=== PATIENT | male | born 1945 | race Caucasian/White ===

== ENCOUNTER → 2017-10-25 09:14 | Outpatient (CLI) | payer MEDICARE, BC, SELFPAY ==
--- NOTE | 2017-10-25 09:27 | RAD_ITS ---
STUDY: X-RAY - RIGHT KNEE REASON FOR EXAM: Male, 72 years old. 3 month follow up for unicompartmental knee replacement. TECHNIQUE: 3 view(s) of the knee. COMPARISON: None. FINDINGS: The patient is status post medial hemiarthroplasty. There is good alignment. Small joint effusion. RAD/Knee 1 or 2 Views IMPRESSION: Status post right medial hemiarthroplasty. There is good alignment. Small joint effusion. Electronically Signed: Juan Martinez MD at 15:46 EST Tel [phone], Service support ,
== END ==
DX: Z96.651 Presence of right artificial knee joint (principal)
CPT/HCPCS: 73560

== ENCOUNTER → 2018-04-23 08:54 | Outpatient (CLI) | payer MEDICARE, BC, SELFPAY ==
--- NOTE | 2018-04-23 09:02 | RAD_ITS ---
STUDY: X-RAY - LEFT KNEE REASON FOR EXAM: Male, 73 years old. Postop. Three-month follow-up. TECHNIQUE: 3 view(s) of the knee. COMPARISON: None. FINDINGS: There is a left medial hemiarthroplasty. The prosthetic components are intact and articulate normally with each other. There is no fracture or loosening from the underlying bone. There are mild degenerative changes of the lateral femoral patellar joint space. There are mild degenerative changes of the patellofemoral joint space. There is no joint effusion or soft tissue mass. RAD/Knee 3 Views IMPRESSION: Medial hemiarthroplasty of the left knee without acute abnormality.. Electronically Signed: Julio Cesar Carey DO at 17:16 EDT Tel [phone], Service support ,
== END ==
DX: Z47.1 Aftercare following joint replacement surgery (principal); Z96.659 Presence of unspecified artificial knee joint
CPT/HCPCS: 73562

== ENCOUNTER → 2019-09-24 10:15 | Outpatient (CLI) | payer MEDICARE, BC, SELFPAY ==
--- NOTE | 2019-09-24 10:23 | MRI_ITS ---
STUDY: MRI BRAIN WITH AND WITHOUT CONTRAST REASON FOR EXAM: Male, 74 years old. hyperprolactinemia, low testosterone TECHNIQUE: Standardized multiplanar fat and water weighted pulse sequences were obtained. Dotarem IV 24ml was administered for the contrast portion of the examination. COMPARISON: None. FINDINGS: Large susceptibility artifact is present across the anterior and superior aspect of the skull/frontal regions. A small portion of the frontal lobes is obscured by this dark signal on the diffusion-weighted sequence. There is no evidence for recent intracranial ischemia or other cause of cytotoxic edema on the remaining aspects of the diffusion weighted imaging (DWI). There is mild cerebral atrophy with widening of the extra-axial spaces and ventricular dilatation. There are multiple white matter hyperintensities, distributed throughout the deep white matter tracts of the cerebral hemispheres, consistent with moderate chronic white matter ischemic changes. Normal bilateral basal ganglia. Normal thalami. There is no extra-axial fluid accumulation. Normal flow voids within the major intracranial circulation suggesting patency by spin echo criteria. Normal venous enhancement. There is no enhancing intra-axial or extra-axial abnormality. No visualized enhancing mass or nodule. Normal sella turcica, pituitary gland, infundibular stalk, optic chiasm and hypothalamus. Normal tectal plate and pineal gland. Normal midbrain, pavel and medulla. Normal cerebellum. Normal basal cisterns. Normal bilateral temporal bones. Normal bilateral internal auditory canals. No demonstrated orbital abnormality, within the constraints of a routine brain study. Normal visualized paranasal sinuses. Normal calvarium and skull base. Normal visualized soft tissue structures. Normal visualized upper cervical spine. MRI/Brain W/WO Contrast IMPRESSION: 1. Chronic ischemic changes of the brain, as described above. 2. No demonstrated pituitary nodule or signal abnormality. Electronically Signed: Osmel Diez MD at 17:21 EST , Service support ,
== END ==
DX: E22.1 Hyperprolactinemia (principal)
CPT/HCPCS: 70553; A9575

== ENCOUNTER → 2020-02-24 11:34 | Outpatient (CLI) | payer MEDICARE, BC, SELFPAY ==
--- NOTE | 2020-02-24 11:47 | RAD_ITS ---
STUDY: X-RAY - LEFT KNEE REASON FOR EXAM: Male, 74 years old. follow up knee arthroplasty, flexion and extension views requested on the order TECHNIQUE: 4 view(s) of the knee. COMPARISON: None. FINDINGS: There is unicompartmental prosthetic within the medial compartment of the femoral-tibial joint. There is spurring of the upper pole of the patella RAD/Knee 4 or More Views IMPRESSION: Unicameral prosthesis within the medial compartment of the joint and degenerative change. No acute fracture Electronically Signed: Micah Dumont MD at 21:48 EDT , Service support ,
--- NOTE | 2020-02-24 11:50 | RAD_ITS ---
STUDY: X-RAY - RIGHT KNEE REASON FOR EXAM: Male, 74 years old. follow up knee arthroplasty, flexion and extension views requested on the order TECHNIQUE: 4 view(s) of the knee. COMPARISON: None. FINDINGS: Unicompartmental prosthesis noted in the medial aspect of the knee. No evidence for fracture or dislocation.. Spurring of the lateral tibial and femoral condyles. RAD/Knee 4 or More Views IMPRESSION: Unicompartmental prosthetic placement with mild degenerative change. No acute fracture Electronically Signed: Micah Dumont MD at 21:45 EDT , Service support ,
== END ==
DX: Z96.653 Presence of artificial knee joint, bilateral (principal)
CPT/HCPCS: 73564

== ENCOUNTER → 2022-05-09 | Outpatient (CLI) | payer MEDICARE, BC, SELFPAY ==
--- NOTE | 2022-05-09 07:47 | ECHOCS_ITS ---
Reason For Study: Murmur Procedure This was a 2D Doppler, Color Flow transthoracic echocardiogram. The study was technically difficult. Contrast injection was performed. Exam performed in department. Left Ventricle Normal LV size. Moderate eccentric left ventricular hypertrophy. Left ventricular systolic function is normal. The estimated ejection fraction is 65 %. Stage 1 diastolic dysfunction. No regional wall motion abnormalities noted. Right Ventricle Normal RV size. Normal systolic function. Atria Normal left atrium. Normal right atrium. Mitral Valve Normal mitral valve. Tricuspid Valve Normal tricuspid valve. Mild (1+) tricuspid valve insufficiency. Pulmonary artery systolic pressure is 26 mmHg. Aortic Valve Normal aortic valve. Pulmonic Valve Normal pulmonic valve. Great Vessels Normal aortic root. The pulmonary artery is normal size. Normal inferior vena cava. Pericardium/Pleural No pericardial effusion. Medication 22 gauge I.V. with prn adaptor inserted into right arm. Diluted definity 2.5ml given slow IV push to enhance endocardial definition. MMode/2D Measurements & Calculations LVIDd: 5.0 cm IVSd: 1.4 cm Ao root diam: 3.8 cm LVIDs: 2.9 cm LVPWd: 1.2 cm LA dimension: 4.5 cm RVDd: 3.8 cm FS: 42.5 % LAV(MOD-bp): 64.3 ml LA A4 area: 18.6 cm2 RA A4 area: 14.2 cm2 LAV(MOD-bp) Indexed: 27.5 ml/m2 LAV(MOD-sp2): 69.5 ml LAV(MOD-sp4): 52.8 ml Time Measurements MV dec time: 0.27 sec Doppler Measurements & Calculations MV E max jose: 79.2 cm/sec Lat Peak E' Jose: 8.3 cm/sec Med Peak E' Jose: 8.1 cm/sec MV A max jose: 110.5 cm/sec E/E' lat: 9.6 E/E' med: 9.7 MV E/A: 0.72 MV V2 max: 111.2 cm/sec MV P1/2t max jose: 86.7 cm/sec Ao V2 max: 157.7 cm/sec MV max P.9 mmHg MV P1/2t: 84.4 msec Ao max P.0 mmHg MV V2 mean: 54.0 cm/sec MV dec slope: 300.8 cm/sec2 MV mean P.4 mmHg MV V2 VTI: 27.0 cm MVA(P1/2t): 2.6 cm2 LV V1 max: 102.9 cm/sec PA V2 max: 102.5 cm/sec TR max jose: 242.9 cm/sec LV V1 max P.2 mmHg TR max P.6 mmHg ECHO/Echo Complete W/ Contrast Interpretation Summary Normal LV size. Left ventricular systolic function is normal. The estimated ejection fraction is 65 %. Stage 1 diastolic dysfunction. Moderate eccentric left ventricular hypertrophy. Contrast injection was performed. Ordering Physician: VIC MAY Performed By: Gregg Sesay RCS
== END | disposition home or self-care (01) ==
DX: R01.1 Cardiac murmur, unspecified (principal)
CPT/HCPCS: 93306; Q9957; A4216; C8929

== ENCOUNTER → 2022-10-17 | Outpatient (CLI) | payer MEDICARE, BC, SELFPAY ==
--- NOTE | 2022-10-17 11:44 | RAD_ITS ---
EXAM: XR LEFT KNEE COMPLETE, 4 OR MORE VIEWS CLINICAL INDICATION: FOLLOW UP TOTAL KNEE ARTHROPLASTY TECHNIQUE: Four or more views of the left knee. This report was created using [employer] report generation technology. COMPARISON: 02/24/2020. FINDINGS: BONES/JOINTS: Metallic prosthesis in the medial femorotibial compartment remains intact and in good anatomic alignment. Minimal bone spur in the posterior inferior surface of the patella is unchanged. Minimal calcific enthesopathy overlying the anterior superior surface of the patella is unchanged. No acute fracture. Preservation of the joint space. No sclerotic or destructive changes observed. SOFT TISSUES: Unremarkable. No soft tissue swelling or gas. No radiopaque foreign body. RAD/Knee 4 or More Views IMPRESSION: No acute findings in the left knee and no change including the metallic arthroplasty in the medial femorotibial compartment when compared to 02/24/2020.. Electronically Signed: Augie Willett MD at 13:22 EST ,
--- NOTE | 2022-10-17 11:45 | RAD_ITS ---
EXAM: XR RIGHT KNEE COMPLETE, 4 OR MORE VIEWS CLINICAL INDICATION: FOLLOW UP TOTAL KNEE ARTHROPLASTY TECHNIQUE: Four or more views of the right knee. This report was created using [employer] report generation technology. COMPARISON: 02/24/2020. FINDINGS: BONES/JOINTS: Metallic arthroplasty in the medial femorotibial compartment remains normal and in good anatomic alignment. Minimal bone spurs in the lateral femoral condyle and in the lateral proximal tibial condyle are unchanged. Minimal bone spurs in the posterior superior and posterior inferior surface of the patella are unchanged. No acute fracture. No sclerotic or destructive changes observed. SOFT TISSUES: Unremarkable. No soft tissue swelling or gas. No radiopaque foreign body. RAD/Knee 4 or More Views IMPRESSION: No acute findings in the right knee and no interval change including the metallic arthroplasty in the medial femoral tibial compartment when compared to 02/24/2020. Electronically Signed: Augie Willett MD at 13:24 EST ,
== END | disposition home or self-care (01) ==
DX: M76.899 Other specified enthesopathies of unspecified lower limb, excluding foot (principal); Z96.653 Presence of artificial knee joint, bilateral
CPT/HCPCS: 73564

== ENCOUNTER → 2025-08-09 | Outpatient (CLI) | payer MEDICARE, BC, SELFPAY ==
--- NOTE | 2025-08-09 09:29 | RAD_ITS ---
PROCEDURE: CHEST PA AND LATERAL 08/09/2025 REASON FOR EXAM: CHRONIC COUGH TECHNIQUE: Procedure Code: RADCXR Modality: DX Procedure: CHEST PA AND LATERAL. 2 PA views of the chest were obtained as well as a lateral view. COMPARISON: None FINDINGS: Hardware: None Heart: Heart size and configuration are within normal limits. Arteriosclerotic vascular disease of the aorta is noted. Mediastinum: Mediastinal silhouette is unremarkable. Pulmonary vasculature: Pulmonary vasculature is unremarkable. Lungs: Lungs are expanded without evidence of pneumothorax, atelectasis, consolidation, effusion or pneumonic infiltrate. There is elevation of the right hemidiaphragm which may be due to phrenic nerve paralysis or eventration. Bones: No acute osseous abnormality is noted. Spondylosis of the thoracic spine is noted. RAD/Chest PA and Lateral IMPRESSION: Arteriosclerotic vascular disease of the aorta. Elevation of the right hemidiaphragm which may be due to eventration or phrenic nerve paralysis. Reading Location: [id number]
--- OUTSIDE RECORDS SUMMARY | 2025-08-09 10:14 | XMS RPT_ITS | CCD ---
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 Brody Barcenas Attending Provider Brody Barcenas Attending Unavailable EANERDILLON Attending Unavailable BEARER, DILLON Primary Care Unavailable DILLON DIAZ Attending Unavailable , DILLON Primary Care Unavailable KALIA HERRING, GENE Hunter Primary Care Physician Unavailab Langston PT, Jewell Unavailable Massimo THOMAS MD, GENE Hunter Primary Care Unavailable ANDIE MYERS MD Referring Unavailable ANDIE MYERS MD Attending Modesta Chan MD Primary Care Provider [phone] MODESTA ROMANO Referring Unavailable MODESTA ROMANO Attending Unavailable MODESTA ROMANO Primary Care Unavailable Gene Thomas Primary Care Provider [phone] KAMRYN HERRING, DR MODESTA Fonseca Primary Care Physician Adam Rounding Nurse, Dontrell Unavailable VIC Elise DO Attending Massimo ROMANO MD, DR MODESTA Fonseca Primary Care Anne ROMANO MD, DR MODESTA Fonseca Primary Care UnavailISSAC Ortiz MD Attending Massimo ROMANO MD, DR MODESTA Fonseca Primary Care Unavailzoran MILLER MD, SPIKE Admitting Massimo SANCHEZ MD, DR SHERMAN Consulting CHRISTINA Baez MD Attending JIN Sommers DO Consulting Rabia ROMANO MD, DR MODESTA Fonseca Primary Care UnavailMYRNA Mcdonald Attending Rabiav minnie SANCHEZ MD, DR SHERMAN Attending Anne ROMANO MD, DR MODESTA Fonseca Primary Care Unavailzoran ROMANO MD, DR MODESTA Fonseca Primary Care Unavailzoran HOUGH, MYRNA Stephenson Attending Unav ailable Allergies Allergy Classification Reported Allergen(s) Allergy Type Date of Onset Reaction(s) Facility (3 sources) colesevelam Drug Allergy 09-12-2010 Unknown [facility] (3 sources) rosuvastatin Drug Allergy 09-12-2010 Unknown [facility] Medications Current Medications Medication Drug Class(es) Dates Sig (Normalized) Sig (Original) amLODIPine 2.5 mg oral tablet (5 sources) Dihydropyridine Calcium Channel Bryan Start: 06-04-2025 amLODIPine 2.5 mg oral tablet Dose : 2.5 mg = 1 tab(s), Oral, qDay, # 30 tab(s), 0 Refill(s) Start Date: 06/04/25 Status: Ordered Medication Dispense Status: Completed Quantity: 30.0 Unit: tab(s) Total Allowed Fills: 1 Fills Dispensed: 0 Start: 01-22-2024 take 1 tablet by sebastián th once daily amLODIPine (Norvasc) 2.5 MG tablet Take 2.5 mg by mouth daily. 0 01/22/2024 Active apixaban 5 mg oral tablet (2 sources) Factor Xa Inhibitor Start: 01-16-2024 take 1 tablet by mouth twice daily Eliquis 5 MG tablet Take 5 mg by mouth 2 times daily. 0 01/16/2024 Active cholecalciferol 0.01 mg oral capsule (2 sources) Vitamin D take 1 capsule by mouth in the morning cholecalciferol (Vitamin D-3) 10 MCG (400 UNIT) capsule Take 400 Units by mouth in the morning. 0 Active DME MISCellaneous (1 source) Start: 06-07-2025 DME MISCellaneous See Instructions, three way catheter secure., # 1 EA, 0 Refill(s), Pharmacy: [facility], 177.8, cm, 06/04/25 1:39:00 EDT, Height, 113.6, kg, 06/04/25 1:39:00 EDT, Dosing Weight Start Date: 06/07/25 Status: Ordered Medication Dispense Status: Completed Quantity: 1.0 Unit: EA Total Allowed Fills: 1 Fills Dispensed: 0 finasteride 5 mg oral tablet (3 sources) 5-alpha Reductase Inhibitor Start: 06-04-2025 End: 07-04-2025 finasteride 5 mg oral tablet Dose : 5 mg = 1 tab(s), Oral, qDay, # 90 tab(s), 3 Refill(s), Pharmacy: [id number], BPH (benign prostatic hyperplasia), 177.8, cm, 06/04/25 1:39:00 EDT, Height, kg, 06/04/25 1:39:00 EDT, Dosing Weight Start Date: 06/11/25 Status: Ordered Medication Dispense Status: Completed Quantity: 90.0 Unit: tab(s) Total Allowed Fills: 4 Fills Dispensed: 0 Indications: Benign prostatic hyperplasia without lower urinary tract symptoms; levothyroxine sodium 0.15 mg oral tablet (5 sources) l-Thyroxine Start: 06-04-2025 levothyroxine 150 mcg (0.15 mg) oral tablet Dose : 150 mcg = 1 tab(s), Oral, qDayAC, # 90 tab(s), 0 Refill(s) Start Date: 06/04/25 Status: Ordered Medication Dispense Status: Completed Quantity: 90.0 Unit: tab(s) Total Allowed Fills: 1 Fills Dispensed: 0 Start: 01-21-2024 levothyroxine (Synthroid, Levoxyl) 175 MCG tablet TAKE 1 TABLET BY MOUTH ONCE DAILY EXCEPT TAKE 1 & 1/2 TABLETS EVERY 5 DAYS 0 01/21/2024 Active lisinopril 30 mg oral tablet (5 sources) Angiotensin Converting Enzyme Inhibitor Start: 06-04-2025 lisinopril 30 mg ora l tablet Dose : 30 mg = 1 tab(s), Oral, Daily, # 100 tab(s), 0 Refill(s) Start Date: 06/04/25 Status: Ordered Medication Dispense Status: Completed Quantity: 100.0 Unit: tab(s) Total Allowed Fills: 1 Fills Dispensed: 0 Start: 12-01-2023 take 1 tablet by sebastián once daily lisinopril 30 MG tablet Take 30 mg by mouth daily. 0 12/01/2023 Active metFORMIN hydrochloride 500 mg oral tablet (5 sources) Biguanide Start: 06-04-2025 MetFORMIN (Eqv -Fortamet) 500 mg oral tablet, EXTENDED RELEASE Dose : 500 mg = 1 tab(s), Oral, 4x/Day, Okay to substitute for generic Glucophage XR, # 100 tab(s), 0 Refill(s) Start Date: 06/04/25 Status: Ordered Medication Dispense Status: Completed Quantity: 100.0 Unit: tab(s) Total Allowed Fills: 1 Fills Dispensed: 0 Start: 11-29-2023 take 1 tablet by sebastián th twice daily metFORMIN (Glucophage) 500 MG tablet Take 500 mg by mouth 2 times daily. 0 11/29/2023 Active metoprolol tartrate 25 mg oral tablet (5 sources) beta-Adrenergic Bryan Start: 06-04-2025 metopr olol tartrate 25 mg oral tablet Dose : 12.5 mg = 0.5 tab(s), Oral, qDay, # 30 tab(s), 0 Refill(s) Start Date: 06/04/25 Status: Ordered Medication Dispense Status: Completed Quantity: 30.0 Unit: tab(s) Total Allowed Fills: 1 Fills Dispensed: 0 take 1 tablet by mouth once akash y metoprolol succinate XL (Toprol-XL) 50 MG 24 hr tablet Take 50 mg by mouth daily. 0 Active omeprazole 20 mg delayed release oral capsule (2 sources) Proton Pump Inhibitor Start: 01-11-2024 take 1 capsule by mouth once daily omeprazole (PriLOSEC) [address] capsule TAKE 1 CAPSULE BY MOUTH ONCE DAILY DIRECTED 0 01/11/2024 Active pravastatin sodium 20 mg oral tablet (5 sources) HMG-CoA Reductase Inhibitor Start: 06-04-2025 take 1 tablet by mouth every other day pravastatin 20 mg oral tablet Dose : 20 mg =, Oral, Every other day, 0 Refill(s) Start Date: 06/04/25 Status: Ordered Medication Dispense Status: Completed Total Allowed Fills: 1 Fills Dispensed: 0 Start: 12-16-2023 pravastatin (P ravachol) 20 MG tablet Take 20 mg by mouth. 0 12/16/2023 Active tamsulosin hydrochloride 0.4 mg oral capsule (3 sources) alpha-Adrenergic Bryan Start: 06-04-2025 End: 07-04-2025 Flomax 0.4 mg oral capsule Dose : 0.4 mg = 1 cap(s), Oral, qDayPC, # 90 cap(s), 3 Refill(s), Pharmacy: [id number], BPH (benign prostatic hyperplasia), 177.8, cm, 06/04/25 1:39:00 EDT, Height, kg, 06/04/25 1:39:00 EDT, Dosing Weight Start Date: 06/11/25 Status: Ordered Medication Dispense Status: Completed Quantity: 90.0 Unit: cap(s) Total Allowed Fills: 4 Fills Dispensed: 0 Indications: Benign prostatic hyperplasia without lower urinary tract symptoms; Completed/Discontinued Medications Medication Drug Class(es) Dates Sig (Normalized) Sig (Original) perflutren protein A microsphere (Optison) 3 mL in sodium chloride (PF) 0.9 % 10 mL IV syringe (2 sources) Start: 01-29-2024 End: 01-29-2024 perflutren protein A microsphere (Optison) 3 mL in sodium chloride (PF) 0.9 % 10 mL IV syringe Problems Active Problems Problem Classification Problem Date Documented Date Episodic/Chronic Cardiac dysrhythmias (5 sources) Atrial fibrillation; Translations: [Unspecified atrial fibrillation] Onset: 01-29-2024 01-29-2024 Chronic Complication of device; implant or graft (2 sources) Other mechanical complication of indwelling urethral catheter, initial encounter; Translations: [Other mechanical complication of indwelling urethral catheter, initial encounter] Onset: 06-03-2025 Episodic Genitourinary symptoms and ill-defined conditions (6 sources) Retention of urine; Translations: [Retention of urine, unspecified] Onset: 06-02-2025 Episodic Other acquired deformities (1 source) Contracture of ankle joint; Translations: [Contracture, 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 Other connective tissue disease (1 source) Other specified enthesopathies of unspecified lower limb, excluding foot; Translations: [Other specified enthesopathies of unspecified lower limb, excluding foot] Onset: 12-17-2022 Episodic Other lower respiratory disease (4 sources) Dyspnea; Translations: [Other forms of dyspnea] Onset: 01-29-2024 01-29-2024 Episodic Other lower respiratory disease (1 source) Other forms of dyspnea; Translations: [Other forms of dyspnea] Onset: 01-29-2024 Episodic Past or Other Problems Problem Classification Problem Date Documented Da te Episodic/Chronic Heart valve disorders (1 source) Cardiac murmur, unspecified; Translations: [Cardiac murmur, unspecified] Onset: 08-23-2022 Episodic Results Test Name Value Interpretation Reference Range Facility [facility] 08-03-2025 Prostate Specific Antigen 0.99 ng/mL Normal 0.02-4.00 [facility] Comment on above: Result Comment: Leidy ent results determined by assays using different manufacturers for methods may not be comparable. Performed By: #### P SA #### [facility] [address] [place] [address] BASIC METABOLIC PANELon BUN/CREATININE RATIO SEE NOTE: Normal 6-22 [facility] Comment on above: Order Comment: 0; 0; 0; 0; 0 Result Comment: Not Reported: BUN and Creatinine are within reference range. Performed By: #### 3 4429, 866, 899, 20738, 496 #### [facility] [place] [address] Engineer Automated Equipment: Elvis Nava MD Calcium [Mass/Vol] 9.0 mg/dL Normal 8.6-10.3 [facility] Comment on above: Order Comment: 0; 0; 0; 0; 0 Performed By: #### 3 4429, 866, 899, 13804, 496 #### [facility] [place] [address] [employer] Automated Equipment: Elvis Nava MD Chloride [Moles/Vol] 103 mmol/L Normal 98-110 [facility] [place] t [facility] Comment on above: Order Comment: 0; 0; 0; 0; 0 Performed By: #### 3 4429, 866, 899, 90231, 496 #### [facility] [place] [address] [employer] Automated Equipment: Elvis Nava MD CO2 [Moles/Vol] 27 mmol/L Normal 20-32 [facility] Comment on above: Order Comment: 0; 0; 0; 0; 0 Performed By: #### 3 4429, 866, 899, 02106, 496 #### [facility] [place] [address] [employer] Automated Equipment: Elvis Nava MD Creatinine [Mass/Vol] 0.78 mg/dL Normal 0.70-1.28 [facility] Comment on above: Order Comment: 0; 0; 0; 0; 0 Performed By: #### 3 4429, 866, 899, 37616, 496 #### [facility] [place] [address] Engineer Automated Equipment: Elvis Nava MD GFR/1.73 sq M.predicted among non-blacks MDRD (S/P/Bld) [Vol rate/Area] 91 mL/min/{1.73_m2} Normal > OR = 60 [facility] Comment on above: Order Comment: 0; 0; 0; 0; 0 Performed By: #### 3 4429, 866, 899, 92528, 496 #### [facility] [place] [address] [employer] Automated Equipment: Elvis Nava MD Glucose [Mass/Vol] 207 mg/dL High 65-99 [facility] Comment on above: Order Comment: 0; 0; 0; 0; 0 Result Comment: Fasting reference interval For someone without known diabetes, a glucose value >125 mg/dL indicates that they may have diabetes and this should be confirmed with a follow-up test. Performed By: #### 3 4429, 866, 899, 96611, 496 #### [facility] [place] [address] [employer]ated Equipment: Elvis Nava MD Potassium [Moles/Vol] 4.7 mmol/L Normal 3.5-5.3 [facility] Comment on above: Order Comment: 0; 0; 0; 0; 0 Performed By: #### 3 4429, 866, 899, 66226, 496 #### [facility] [place] [address] [employer] Automated Equipment: Elvis Nava MD Sodium [Moles/Vol] 139 mmol/L Normal 135-146 [facility] Comment on above: Order Comment: 0; 0; 0; 0; 0 Performed By: #### 3 4429, 866, 899, 36583, 496 #### [facility] [place] [address] Engineer Automated Equipment: lEvis Nava MD Urea nitrogen [Mass/Vol] 17 mg/dL Normal 7-25 [facility] Comment on above: Order Comment: 0; 0; 0; 0; 0 Performed By: #### 3 4429, 866, 899, 06843, 496 #### [facility] [address], [address] [place] [address] Engineer Automated Equipment: Elvis Nava MD HEMOGLOBIN A1con 07-30-2025 HbA1c (Bld) [Mass fraction] 7.7 % High <5.7 [facility] Comment on above: Result Comment: For someone without known diabetes, a hemoglobin A1c value of 6.5% or greater indicates that they may have diabetes and this should be confirmed with a follow-up test. For someone with known diabetes, a value <7% indicates that their diabetes is well controlled and a value greater than or equal to 7% indicates suboptimal control. A1c targets should be individualized based on duration of diabetes, age, comorbid conditions, and other considerations. Currently, no consensus exists regarding use of hemoglobin A1c for diagnosis of diabetes for children. Performed By: #### 3 4429, 866, 899, 95365, 496 #### [facility] [place] [address] [employer] Automated Equipment: Elvis Nava MD T3, FREEon 07-30-2025 Free T3 [Mass/Vol] 2.9 pg/mL Normal 2.3-4.2 [facility] Comment on above: Performed By: #### 3 4429, 866, 899, 15036, 496 #### [facility] [address], [address] [place] [address] Engineer Automated Equipment: Elvis Nava MD T4, FREEon 07-30-2025 Free T4 [Mass/Vol] 1.3 ng/dL Normal 0.8-1.8 [facility] Comment on above: Performed By: #### 3 4429, 866, 899, 24971, 496 #### [facility] [place] [id number] Engineer Automated Equipment: Elvis Nava MD TSHon 07-30-2025 TSH Qn 0.90 m[IU]/L Normal 0.40-4.50 [facility] Comment on above: Performed By: #### 3 4429, 866, 899, 49796, 496 #### [facility] [address], [address] [place] [address] Engineer Automated Equipment: Elvis Nava MD .Auto Diffon 06-04-2025 Basophil, Absolute 0.0 10 3/mcL Normal 0.0-0.3 [facility] Comment on above: Performed By: #### G FR, ADIFF, CBC, MG, HFP, LIPID, ANEU, BMP #### [address] [address] Basophils/100 WBC (Bld) 0.6 % Normal 0.0-2.5 [facility] Comment on above: Performed By: #### G FR, ADIFF, CBC, MG, HFP, LIPID, ANEU, BMP #### [address] [address] Eosinophil, Absolute 0.2 10 3/mcL Normal 0.0-0.7 [facility] Comment on above: Performed By: #### G FR, ADIFF, CBC, MG, HFP, LIPID, ANEU, BMP #### [address] [address] Eosinophils/100 WBC (Bld) 2.9 % Normal 0.0-6.0 [facility] Comment on above: Performed By: #### G FR, ADIFF, CBC, MG, HFP, LIPID, ANEU, BMP #### [address] [address] Lymphocyte, Absolute 1.5 10 3/mcL Normal 0.9-4.3 [facility] Comment on above: Performed By: #### G FR, ADIFF, CBC, MG, HFP, LIPID, ANEU, BMP #### [address] [address] Lymphocytes/100 WBC (Bld) 21.8 % Normal 20.0-40.0 [facility] Comment on above: Performed By: #### G FR, ADIFF, CBC, MG, HFP, LIPID, ANEU, BMP #### [place] [address] Monocyte, Absolute 0.8 10 3/mcL Normal 0.1-1.4 [facility] Comment on above: Performed By: #### G FR, ADIFF, CBC, MG, HFP, LIPID, ANEU, BMP #### [place] [id number] Monocytes/100 WBC (Bld) 12.3 % Normal 2.0-13.0 [facility] Comment on above: Performed By: #### G FR, ADIFF, CBC, MG, HFP, LIPID, ANEU, BMP #### [address] [address] Neutrophils/100 WBC (Bld) 62.4 % Normal 50.0-75.0 [facility] Comment on above: Performed By: #### G FR, ADIFF, CBC, MG, HFP, LIPID, ANEU, BMP #### [address] [address] .GFRon 06-04-2025 Estimated Glomerular Filtration Rate 86 ml/min/1.73sqm Normal [facility] Comment on above: Result Comment: Stages of Chronic Kidney Disease (CKD) Stage Description eGFR(ml/min/1.73 sq.m.) CKD 1 Normal kidney function or >=90 normal kindney function with possible kidney damage (ex. Proteinuria) CKD 2 Kidney damage with mild loss 60-89 of kidney function CKD 3a Mild to moderate loss of kidney 45-59 function CKD 3b Moderate to severe loss of 30-44 of kindey function CKD 4 Severe loss of kidney function 15-29 CKD 5 Kidney failure <15 Note: (go live 2024) the eGFR calculation was updated to the 2020 CKD-EPI creatinine equation without a race factor to calculate the eGFR results. Performed By: #### P SA #### [address] [address] .NEUABSon 06-04-2025 Neutrophil, Absolute 4.3 10 3/mcL Normal 2.3-8.1 [facility] Comment on above: Performed By: #### G FR, ADIFF, CBC, MG, HFP, LIPID, ANEU, BMP #### [address] [address] A1Con 06-04-2025 Glucose [Mass/Vol] 180 mg/dL Normal [facility] Comment on above: Result Comment: Suzanne mated Average Glucose calculated by equation ((28.7xA1C)-46.7) Estimated average glucose (eAG) is a calculated value from Hemoglobin A1C and is product representative of the average blood glucose level in the last 2-3 month period. Normal range: less than 114 mg/dL Performed By: #### A 1C #### [place] [id number] HbA1c (Bld) [Mass fraction] 7.9 % High 4.0-6.0 [facility] Comment on above: Performed By: #### A 1C #### [place] [id number] [facility] BUN/Creatinine Ratio 17.6 ratio Normal 10.0-22.0 [facility] Comment on above: Performed By: #### G FR, ADIFF, CBC, MG, HFP, LIPID, ANEU, BMP #### [place] [id number] Calcium [Mass/Vol] 9.3 mg/dL Normal 8.7-10.4 [facility] Comment on above: Performed By: #### G FR, ADIFF, CBC, MG, HFP, LIPID, ANEU, BMP #### [address] [address] Chloride [Moles/Vol] 104 mmol/L Normal 98-110 [facility] Comment on above: Performed By: #### G FR, ADIFF, CBC, MG, HFP, LIPID, ANEU, BMP #### [address] [address] CO2 [Moles/Vol] 27 mmol/L Normal 22-32 [facility] Comment on above: Performed By: #### G FR, ADIFF, CBC, MG, HFP, LIPID, ANEU, BMP #### [address] [address] Creatinine [Mass/Vol] 0.91 mg/dL Normal 0.60-1.40 [facility] Comment on above: Result Comment: Test ing performed on viVood analyzer using enzymatic creatinine methodology. Performed By: #### G FR, ADIFF, CBC, MG, HFP, LIPID, ANEU, BMP #### [place] [address] Electrolyte Balance 9.0 mEq/L Normal 4.0-15.0 [facility] Comment on above: Performed By: #### G FR, ADIFF, CBC, MG, HFP, LIPID, ANEU, BMP #### [place] [address] Glucose [Mass/Vol] 187 mg/dL High 82-115 [facility] Comment on above: Performed By: #### G FR, ADIFF, CBC, MG, HFP, LIPID, ANEU, BMP #### [place] [address] Potassium [Moles/Vol] 4.4 mmol/L Normal 3.5-5.0 [facility] Comment on above: Performed By: #### G FR, ADIFF, CBC, MG, HFP, LIPID, ANEU, BMP #### [place] [address] Sodium [Moles/Vol] 140 mmol/L Normal 136-145 [facility] Comment on above: Performed By: #### G FR, ADIFF, CBC, MG, HFP, LIPID, ANEU, BMP #### [place] [address] Urea nitrogen [Mass/Vol] 16.0 mg/dL Normal 8.0-22.0 [facility] Comment on above: Performed By: #### G FR, ADIFF, CBC, MG, HFP, LIPID, ANEU, BMP #### [place] [address] CBCon 06-04-2025 Erythrocyte distribution width (RBC) [Ratio] 13.0 % Normal 11.5-15.5 [facility] Comment on above: Performed By: #### G FR, ADIFF, CBC, MG, HFP, LIPID, ANEU, BMP #### [place] [address] Hematocrit (Bld) [Volume fraction] 36.6 % Low 40.0-52.0 [facility] Comment on above: Performed By: #### G FR, ADIFF, CBC, MG, HFP, LIPID, ANEU, BMP #### [place] [address] Hgb 12.5 G/dL Low 13.0-17.5 [facility] Comment on above: Performed By: #### G FR, ADIFF, CBC, MG, HFP, LIPID, ANEU, BMP #### [place] [address] MCH (RBC) [Entitic mass] 30.8 pg Normal 27.0-33.0 [facility] Comment on above: Performed By: #### G FR, ADIFF, CBC, MG, HFP, LIPID, ANEU, BMP #### [place] [address] MCHC 34.1 G/dL Normal 32.0-36.0 [facility] Comment on above: Performed By: #### G FR, ADIFF, CBC, MG, HFP, LIPID, ANEU, BMP #### [place] [address] MCV (RBC) [Entitic vol] 90.3 fL Normal 81.0-100.0 [facility] Comment on above: Performed By: #### G FR, ADIFF, CBC, MG, HFP, LIPID, ANEU, BMP #### [place] [address] Platelet 175 10 3/mcL Normal 150-450 [facility] Comment on above: Performed By: #### G FR, ADIFF, CBC, MG, HFP, LIPID, ANEU, BMP #### [place] [address] Platelet mean volume (Bld) [Entitic vol] 8.3 fL Normal 6.4-10.5 [facility] Comment on above: Performed By: #### G FR, ADIFF, CBC, MG, HFP, LIPID, ANEU, BMP #### [address] [address] RBC 4.05 10 6/mcL Low 4.50-6.00 [facility] Comment on above: Performed By: #### G FR, ADIFF, CBC, MG, HFP, LIPID, ANEU, BMP #### [address] [address] WBC 6.8 10 3/mcL Normal 4.5-10.8 [facility] Comment on above: Performed By: #### G FR, ADIFF, CBC, MG, HFP, LIPID, ANEU, BMP #### [place] [address] HFPon 06-04-2025 Bili Indirect 0.4 mg/dL Normal 0.1-10.0 [facility] Comment on above: Performed By: #### G FR, ADIFF, CBC, MG, HFP, LIPID, ANEU, BMP #### [place] [address] Albumin Level 3.5 G/dL Normal 3.2-4.8 [facility] Comment on above: Performed By: #### G FR, ADIFF, CBC, MG, HFP, LIPID, ANEU, BMP #### [place] [address] Albumin/Globulin [Mass ratio] 1.5 {ratio} Normal 0.9-1.6 [facility] Comment on above: Performed By: #### G FR, ADIFF, CBC, MG, HFP, LIPID, ANEU, BMP #### [place] [address] ALP [Catalytic activity/Vol] 49 U/L Normal 38-126 [facility] Comment on above: Performed By: #### G FR, ADIFF, CBC, MG, HFP, LIPID, ANEU, BMP #### [place] [address] ALT [Catalytic activity/Vol] 30 U/L Normal 12-55 [facility] Comment on above: Performed By: #### G FR, ADIFF, CBC, MG, HFP, LIPID, ANEU, BMP #### [address] [address] AST [Catalytic activity/Vol] 30 U/L Normal 8-34 [facility] Comment on above: Performed By: #### G FR, ADIFF, CBC, MG, HFP, LIPID, ANEU, BMP #### [place] [address] Bili Direct 0.2 mg/dL Normal 0.0-0.4 [facility] Comment on above: Result Comment: Use of this assay is not recommended for patients undergoing treatment with eltrombopag due to the potential for falsely elevated results. Performed By: #### G FR, ADIFF, CBC, MG, HFP, LIPID, ANEU, BMP #### [place] [address] Bili Total 0.60 mg/dL Normal 0.20-1.20 [facility] Comment on above: Result Comment: Use of this assay is not recommended for patients undergoing treatment with eltrombopag due to the potential for falsely elevated results. Performed By: #### G FR, ADIFF, CBC, MG, HFP, LIPID, ANEU, BMP #### [place] [address] Globulin 2.4 G/dL Low 2.5-4.2 [facility] Comment on above: Performed By: #### G FR, ADIFF, CBC, MG, HFP, LIPID, ANEU, BMP #### [place] [address] Total Protein 5.9 G/dL Normal 5.7-8.2 [facility] Comment on above: Performed By: #### G FR, ADIFF, CBC, MG, HFP, LIPID, ANEU, BMP #### [place] [address] LABORATORYOrdered By: Jannet Ivory on 06-04-2025 Glucose [Mass/Vol] 191 mg/dL High 82 - 115 mg/dL [facility] LABORATORYOrdered By: Sun Montalvo on 06-04-2025 Glucose [Mass/Vol] 173 mg/dL High 82 - 115 mg/dL [facility] LABORATORYOrdered By: SYSTEM SYSTEM on 06-04-2025 Albumin BCP dye [Mass/Vol] 3.5 G/dL Normal 3.2 - 4.8 G/dL ADM SS Albumin/Globulin [Mass ratio] 1.5 {ratio} Normal 0.9 - 1.6 ratio AH ADM SS ALP [Catalytic activity/Vol] 49 U/L Normal 38 - 126 U/L AH ADM SS ALT No additional P-5'-P [Catalytic activity/Vol] 30 U/L Normal 12 - 55 U/L AH ADM SS AST [Catalytic activity/Vol] 30 U/L Normal 8 - 34 U/L ADM SS Basophils (Bld) [#/Vol] 0.0 103/mcL Normal 0.0 - 0.3 10^3/mcL Workflow SS Basophils/100 WBC (Bld) 0.6 % Normal 0.0 - 2.5 % Workflow SS Bili Indirect 0.4 mg/dL Normal 0.1 - 10.0 mg/dL Chemistry S Bilirubin [Mass/Vol] 0.60 mg/dL Normal 0.20 - 1.20 mg/dL AH ADM SS Comment on above: Interpretive Data: U se of this assay is not recommended for patients undergoing treatment with eltrombopag due to the potential for falsely elevated results. Bilirubin.conjugated [Mass/Vol] 0.2 mg/dL Normal 0.0 - 0.4 mg/dL ADM SS Comment on above: Interpretive Data: U se of this assay is not recommended for patients undergoing treatment with eltrombopag due to the potential for falsely elevated results. Calcium [Mass/Vol] 9.3 mg/dL Normal 8.7 - 10. 4 mg/dL AH ADM SS Chloride [Moles/Vol] 104 mmol/L Normal 98 - 11 0 mEq/L AH ADM SS CO2 [Moles/Vol] 27 mmol/L Normal 22 - 32 mEq/L AH ADM SS Creatinine [Mass/Vol] 0.91 mg/dL Normal 0.60 - 1.40 mg/dL ADM SS Comment on above: Interpretive Data: T esting performed on viVood analyzer using enzymatic creatinine methodology. Electrolyte Balance 9.0 mEq/L Normal 4.0 - 15 .0 mEq/L AH ADM SS Eosinophils (Bld) [#/Vol] 0.2 103/mcL Normal 0.0 - 0.7 10^3/mcL Workflow SS Eosinophils/100 WBC (Bld) 2.9 % Normal 0.0 - 6.0 % Workflow SS Erythrocyte distribution width (RBC) [Ratio] 13.0 % Normal 11.5 - 15.5 % Workflow SS Estimated Glomerular Filtration Rate 86 ml/min/1.73sqm Invalid Interpretation Code Chemistry S Comment on above: Interpretive Data: Stages of Chronic Kidney Disease (CKD) Stage Description eGFR(ml/min/1.73 sq.m.) CKD 1 Normal kidney function or >=90 normal kindney function with possible kidney damage (ex. Proteinuria) CKD 2 Kidney damage with mild loss 60-89 of kidney function CKD 3a Mild to moderate loss of kidney 45-59 function CKD 3b Moderate to severe loss of 30-44 of kindey function CKD 4 Severe loss of kidney function 15-29 CKD 5 Kidney failure <15 Note: (go live 2024) the eGFR calculation was updated to the 2020 CKD-EPI creatinine equation without a race factor to calculate the eGFR results. Globulin 2.4 G/dL Low 2.5 - 4.2 G/dL ADM SS Glucose [Mass/Vol] 180 mg/dL Invalid Interpretation Code Auto Chem SS Comment on above: Interpretive Data: E stimated average glucose (eAG) is a calculated value from Hemoglobin A1C and is product representative of the average blood glucose level in the last 2-3 month period. Normal range: less than 114 mg/dL Glucose [Mass/Vol] 187 mg/dL High 82 - 115 mg/dL ADM SS HbA1c (Bld) [Mass fraction] 7.9 % High 4.0 - 6.0 % Auto Chem SS Hematocrit (Bld) [Volume fraction] 36.6 % Low 40.0 - 52.0 % Workflow SS Hemoglobin (Bld) [Mass/Vol] 12.5 G/dL Low 13.0 - 17.5 G/dL Workflow SS Lymphocytes (Bld) [#/Vol] 1.5 103/mcL Normal 0.9 - 4.3 10^3/mcL Workflow SS Lymphocytes/100 WBC (Bld) 21.8 % Normal 20.0 - 40.0 % Workflow SS Magnesium [Mass/Vol] 1.9 mg/dL Normal 1.6 - 2 .4 mg/dL AH ADM SS MCH (RBC) [Entitic mass] 30.8 pg Normal 27.0 - 33.0 pg AH Workflow SS MCHC 34.1 G/dL Normal 32.0 - 36.0 G/dL AH Workflow SS MCV (RBC) [Entitic vol] 90.3 fL Normal 81.0 - 100.0 fL AH Workflow SS Monocytes (Bld) [#/Vol] 0.8 103/mcL Normal 0.1 - 1.4 10^3/mcL AH Workflow SS Monocytes/100 WBC (Bld) 12.3 % Normal 2.0 - 13.0 % AH Workflow SS Neutrophils (Bld) [#/Vol] 4.3 103/mcL Normal 2.3 - 8.1 10^3/mcL AH Workflow SS Neutrophils/100 WBC (Bld) 62.4 % Normal 50.0 - 75.0 % AH Workflow SS Platelet mean volume (Bld) [Entitic vol] 8.3 fL Normal 6.4 - 10.5 fL AH Workflow SS Platelets (Bld) [#/Vol] 175 103/mcL Normal 150 - 450 10^3/mcL AH Workflow SS Potassium [Moles/Vol] 4.4 mmol/L Normal 3.5 - 5.0 mEq/L AH ADM SS Protein [Mass/Vol] 5.9 G/dL Normal 5.7 - 8.2 G/dL AH ADM SS RBC (Bld) [#/Vol] 4.05 106/mcL Low 4.50 - 6.0 0 10^6/mcL AH Workflow SS Sodium [Moles/Vol] 140 mmol/L Normal 136 - 145 mEq/L ADM SS Urea nitrogen [Mass/Vol] 16.0 mg/dL Normal 8.0 - 22.0 mg/dL AH ADM SS Urea nitrogen/Creatinine [Mass ratio] 17.6 ratio Normal 10.0 - 22.0 ratio AH ADM SS WBC (Bld) [#/Vol] 6.8 103/mcL Normal 4.5 - 10.8 10^3/mcL AH Workflow SS LABORATORYOrdered By: Sandra Alcantara on 06-04-2025 Cholesterol [Mass/Vol] 180 mg/dL Normal 50 - 199 mg/dL AH ADM SS Comment on above: Interpretive Data: C holesterol Reference Interval: Less than 200 Desirable 200-239 Borderline high risk 240 and above High risk Cholesterol in HDL [Mass/Vol] 44 mg/dL Normal 40 - 59 mg/dL ADM SS Cholesterol in LDL [Mass/Vol] 108 mg/dL Normal 0 - 129 mg/dL ADM SS Triglyceride [Mass/Vol] 142 mg/dL Normal 3 - 149 mg/dL ADM SS LIPIDon 06-04-2025 Cholesterol [Mass/Vol] 180 mg/dL Normal 50-199 [facility] Comment on above: Result Comment: Chol esterol Reference Interval: Less than 200 Desirable 200-239 Borderline high risk 240 and above High risk Performed By: #### P SA #### [address] [address] Cholesterol in HDL [Mass/Vol] 44 mg/dL Normal 40-59 [facility] Comment on above: Performed By: #### P SA #### [address] [address] Cholesterol in LDL [Mass/Vol] 108 mg/dL Normal 0-129 [facility] Comment on above: Performed By: #### P SA #### [address] [address] Triglyceride [Mass/Vol] 142 mg/dL Normal 3-149 [facility] Comment on above: Performed By: #### P SA #### [address] [address] MGon 06-04-2025 Magnesium [Mass/Vol] 1.9 mg/dL Normal 1.6-2.4 [facility] Comment on above: Performed By: #### G FR, ADIFF, CBC, MG, HFP, LIPID, ANEU, BMP #### [address] [address] .Auto Diffon 06-03-2025 Basophil, Absolute 0.0 10 3/mcL Normal 0.0-0.3 [facility] Comment on above: Performed By: #### M DW, GFR, CBC, ANEU, ADIFF, BMP #### [facility] [address] [place] [address] Basophils/100 WBC (Bld) 0.4 % Normal 0.0-2.5 [facility] Comment on above: Performed By: #### M DW, GFR, CBC, ANEU, ADIFF, BMP #### [address] [address] Eosinophil, Absolute 0.1 10 3/mcL Normal 0.0-0.7 [facility] Comment on above: Performed By: #### M DW, GFR, CBC, ANEU, ADIFF, BMP #### [address] [address] Eosinophils/100 WBC (Bld) 1.0 % Normal 0.0-6.0 [facility] Comment on above: Performed By: #### M DW, GFR, CBC, ANEU, ADIFF, BMP #### [address] [address] Lymphocyte, Absolute 1.2 10 3/mcL Normal 0.9-4.3 [facility] Comment on above: Performed By: #### M DW, GFR, CBC, ANEU, ADIFF, BMP #### [address] [address] Lymphocytes/100 WBC (Bld) 13.1 % Low 20.0-40.0 [facility] Comment on above: Performed By: #### M DW, GFR, CBC, ANEU, ADIFF, BMP #### [address] [address] Monocyte, Absolute 0.8 10 3/mcL Normal 0.1-1.4 [facility] Comment on above: Performed By: #### M DW, GFR, CBC, ANEU, ADIFF, BMP #### [address] [address] Monocytes/100 WBC (Bld) 8.7 % Normal 2.0-13.0 [facility] Comment on above: Performed By: #### M DW, GFR, CBC, ANEU, ADIFF, BMP #### [address] [address] Neutrophils/100 WBC (Bld) 76.8 % High 50.0-75.0 [facility] Comment on above: Performed By: #### M DW, GFR, CBC, ANEU, ADIFF, BMP #### [address] [address] .GFRon 06-03-2025 Estimated Glomerular Filtration Rate 88 ml/min/1.73sqm Normal [facility] Comment on above: Result Comment: Stages of Chronic Kidney Disease (CKD) Stage Description eGFR(ml/min/1.73 sq.m.) CKD 1 Normal kidney function or >=90 normal kindney function with possible kidney damage (ex. Proteinuria) CKD 2 Kidney damage with mild loss 60-89 of kidney function CKD 3a Mild to moderate loss of kidney 45-59 function CKD 3b Moderate to severe loss of 30-44 of kindey function CKD 4 Severe loss of kidney function 15-29 CKD 5 Kidney failure <15 Note: (go live 2024) the eGFR calculation was updated to the 2020 CKD-EPI creatinine equation without a race factor to calculate the eGFR results. Performed By: #### M DW, GFR, CBC, ANEU, ADIFF, BMP #### [address] [address] .MDWon 06-03-2025 Monocyte Distribution Width 17.80 Normal 0.00-20.00 [facility] Comment on above: Result Comment: For ED adult patients suspected of sepsis, MDW<=20.0 does not rule out sepsis or risk of sepsis Performed By: #### M DW, GFR, CBC, ANEU, ADIFF, BMP #### [address] [address] .NEUABSon 06-03-2025 Neutrophil, Absolute 7.1 10 3/mcL Normal 2.3-8.1 [facility] Comment on above: Performed By: #### M DW, GFR, CBC, ANEU, ADIFF, BMP #### [address] [address] BMPon 06-03-2025 BUN/Creatinine Ratio 28 ratio High 7-27 [facility] Comment on above: Performed By: #### M DW, GFR, CBC, ANEU, ADIFF, BMP #### [address] [address] Calcium [Mass/Vol] 9.0 mg/dL Normal 8.4-10.2 [facility] Comment on above: Performed By: #### M DW, GFR, CBC, ANEU, ADIFF, BMP #### [address] [address] Chloride [Moles/Vol] 102 mmol/L Normal 98-107 [facility] Comment on above: Performed By: #### M DW, GFR, CBC, ANEU, ADIFF, BMP #### [address] [address] CO2 [Moles/Vol] 29 mmol/L Normal 23-31 [facility] Comment on above: Performed By: #### M DW, GFR, CBC, ANEU, ADIFF, BMP #### [address] [address] Creatinine [Mass/Vol] 0.87 mg/dL Normal 0.67-1.17 [facility] Comment on above: Performed By: #### M DW, GFR, CBC, ANEU, ADIFF, BMP #### [address] [address] Electrolyte Balance 6.0 mEq/L Normal 4.0-15.0 [facility] Comment on above: Performed By: #### M DW, GFR, CBC, ANEU, ADIFF, BMP #### [address] [address] Glucose [Mass/Vol] 240 mg/dL High 83-110 [facility] Comment on above: Performed By: #### M DW, GFR, CBC, ANEU, ADIFF, BMP #### [address] [address] Potassium [Moles/Vol] 4.4 mmol/L Normal 3.5-5.1 [facility] Comment on above: Performed By: #### M DW, GFR, CBC, ANEU, ADIFF, BMP #### [address] [address] Sodium [Moles/Vol] 137 mmol/L Normal 136-145 [facility] Comment on above: Performed By: #### M DW, GFR, CBC, ANEU, ADIFF, BMP #### [place] [address] Urea nitrogen [Mass/Vol] 24 mg/dL High 7-18 [facility] Comment on above: Performed By: #### M DW, GFR, CBC, ANEU, ADIFF, BMP #### [place] [id number] CBCon 06-03-2025 Erythrocyte distribution width (RBC) [Ratio] 13.3 % Normal 11.5-15.5 [facility] Comment on above: Performed By: #### M DW, GFR, CBC, ANEU, ADIFF, BMP #### [place] [address] Hematocrit (Bld) [Volume fraction] 39.5 % Low 40.0-52.0 [facility] Comment on above: Performed By: #### M DW, GFR, CBC, ANEU, ADIFF, BMP #### [place] [address] Hgb 13.8 G/dL Normal 13.0-17.5 [facility] Comment on above: Performed By: #### M DW, GFR, CBC, ANEU, ADIFF, BMP #### [place] [id number] MCH (RBC) [Entitic mass] 31.0 pg Normal 27.0-33.0 [facility] Comment on above: Performed By: #### M DW, GFR, CBC, ANEU, ADIFF, BMP #### [place] [address] MCHC 34.8 G/dL Normal 32.0-36.0 [facility] Comment on above: Performed By: #### M DW, GFR, CBC, ANEU, ADIFF, BMP #### [place] [address] MCV (RBC) [Entitic vol] 89.0 fL Normal 81.0-100.0 [facility] Comment on above: Performed By: #### M DW, GFR, CBC, ANEU, ADIFF, BMP #### [address] [address] Platelet 175 10 3/mcL Normal 150-450 [facility] Comment on above: Performed By: #### M DW, GFR, CBC, ANEU, ADIFF, BMP #### [place] [id number] [place], [place] [address] Platelet mean volume (Bld) [Entitic vol] 7.9 fL Normal 6.4-10.5 [facility] Comment on above: Performed By: #### M DW, GFR, CBC, ANEU, ADIFF, BMP #### [address] [address] RBC 4.44 10 6/mcL Low 4.50-6.00 [facility] Comment on above: Performed By: #### M DW, GFR, CBC, ANEU, ADIFF, BMP #### [address] [address] WBC 9.2 10 3/mcL Normal 4.5-10.8 [facility] Comment on above: Performed By: #### M DW, GFR, CBC, ANEU, ADIFF, BMP #### [address] [address] [address] ABD/PELVIS W/ IV CONTRAST ONLYon 06-03-2025 CT ABD/PELVIS W/ IV CONTRAST ONLY ORIGINAL EXAMINATION: CT OF THE ABDOMEN AND PELVIS WITH CONTRAST 06/03/2025 11:37 pm TECHNIQUE: CT of the abdomen and pelvis was performed with the administration of intravenous contrast. Multiplanar reformatted images are provided for review. Automated exposure control, iterative reconstruction, and/or weight based adjustment of the mA/kV was utilized to reduce the radiation dose to as low as reasonably achievable. COMPARISON: None. HISTORY: ORDERING SYSTEM PROVIDED HISTORY: Reason for Exam: Hematuria, gross/macroscopic FINDINGS: Lower Chest: No acute findings. Organs: Liver, gallbladder pancreas, spleen and adrenal glands are unremarkable. Kidneys: Symmetric nephrograms. Mild bilateral perinephric stranding. No mass, nephrolithiasis or hydronephrosis. Ureters are normal in caliber. Pelvis: Walton catheter is present, the tip of which, at the very least, tents the wall of the bladder dome. Suboptimal bladder distension with mild bladder wall thickening and several foci of luminal air. Some adjacent perivesicular stranding is present. Marked prostatomegaly. No pelvic or inguinal lymphadenopathy. GI: Large and small bowel are nondilated. Nonvisualized appendix belia pericecal inflammatory changes are present. Unremarkable stomach. No small bowel obstruction. No free intraperitoneal air. No abdominal lymphadenopathy. 2.1 rim calcified density likely represents a calcified lymph node. Vasculature: Atherosclerosis of the abdominal aorta and its branch vessels without aneurysm.. Soft Tissues: No acute findings. Bones: No acute findings. Multilevel degenerative changes of the spine. IMPRESSION: Mild bladder wall thickening with several foci of luminal air. Correlate with urinalysis to exclude cystitis. Marked prostatomegaly. I have personally reviewed the images of this examination and agree with the resident's findings and interpretation. Interpreted by: Cristian Olivarez Preliminary Report By: Daniel Campbell Electronically signed By Cristian Olivarez Dictated Date: 06/03/2025 11:46:47 PM Prelim Date: 06/03/2025 11:55:00 PM Sign Date: 06/03/2025 11:58:59 PM Ordering Provider: VIC Hernandez [facility] LABORATORYOrdered By: SYSTEM SYSTEM on 06-03-2025 Basophils (Bld) [#/Vol] 0.0 103/mcL Normal 0.0 - 0.3 10^3/mcL AO Workflow SS Basophils/100 WBC (Bld) 0.4 % Normal 0.0 - 2.5 % AO Workflow SS Calcium [Mass/Vol] 9.0 mg/dL Normal 8.4 - 10. 2 mg/dL AO ADM SS Chloride [Moles/Vol] 102 mmol/L Normal 98 - 10 7 mmol/L AO ADM SS CO2 [Moles/Vol] 29 mmol/L Normal 23 - 31 mmol/L AO ADM SS Creatinine [Mass/Vol] 0.87 mg/dL Normal 0.67 - 1.17 mg/dL AO ADM SS Electrolyte Balance 6.0 mEq/L Normal 4.0 - 15 .0 mEq/L AO ADM SS Eosinophil, Absolute 0.1 103/mcL Normal 0.0 - 0 .7 10^3/mcL AO Workflow SS Eosinophils/100 WBC (Bld) 1.0 % Normal 0.0 - 6.0 % AO Workflow SS Erythrocyte distribution width (RBC) [Ratio] 13.3 % Normal 11.5 - 15.5 % AO Workflow SS Estimated Glomerular Filtration Rate 88 ml/min/1.73sqm Invalid Interpretation Code AO Chemistry S Comment on above: Interpretive Data: Stages of Chronic Kidney Disease (CKD) Stage Description eGFR(ml/min/1.73 sq.m.) CKD 1 Normal kidney function or >=90 normal kindney function with possible kidney damage (ex. Proteinuria) CKD 2 Kidney damage with mild loss 60-89 of kidney function CKD 3a Mild to moderate loss of kidney 45-59 function CKD 3b Moderate to severe loss of 30-44 of kindey function CKD 4 Severe loss of kidney function 15-29 CKD 5 Kidney failure <15 Note: (go live 2024) the eGFR calculation was updated to the 2020 CKD-EPI creatinine equation without a race factor to calculate the eGFR results. Glucose [Mass/Vol] 240 mg/dL High 83 - 110 mg/dL AO ADM SS Hematocrit (Bld) [Volume fraction] 39.5 % Low 40.0 - 52.0 % AO Workflow SS Hemoglobin (Bld) [Mass/Vol] 13.8 G/dL Normal 13.0 - 17.5 G/dL AO Workflow SS Lymphocytes (Bld) [#/Vol] 1.2 103/mcL Normal 0.9 - 4.3 10^3/mcL AO Workflow SS Lymphocytes/100 WBC (Bld) 13.1 % Low 20.0 - 40.0 % AO Workflow SS MCH (RBC) [Entitic mass] 31.0 pg Normal 27.0 - 33.0 pg AO Workflow SS MCHC 34.8 G/dL Normal 32.0 - 36.0 G/dL AO Workflow SS MCV (RBC) [Entitic vol] 89.0 fL Normal 81.0 - 100.0 fL AO Workflow SS Monocyte distribution width Auto (Bld) [Entitic vol] 17.80 1 Normal 0.00 - 20.00 AO Workflow SS Comment on above: Result Comment: For ED adult patients suspected of sepsis, MDW<=20.0 does not rule out sepsis or risk of sepsis Monocytes (Bld) [#/Vol] 0.8 103/mcL Normal 0.1 - 1.4 10^3/mcL AO Workflow SS Monocytes/100 WBC (Bld) 8.7 % Normal 2.0 - 13.0 % AO Workflow SS Neutrophils (Bld) [#/Vol] 7.1 103/mcL Normal 2.3 - 8.1 10^3/mcL AO Workflow SS Neutrophils/100 WBC (Bld) 76.8 % High 50.0 - 75.0 % AO Workflow SS Platelet mean volume (Bld) [Entitic vol] 7.9 fL Normal 6.4 - 10.5 fL AO Workflow SS Platelets (Bld) [#/Vol] 175 103/mcL Normal 150 - 450 10^3/mcL AO Workflow SS Potassium [Moles/Vol] 4.4 mmol/L Normal 3.5 - 5.1 mmol/L AO ADM SS RBC (Bld) [#/Vol] 4.44 106/mcL Low 4.50 - 6.0 0 10^6/mcL AO Workflow SS Sodium [Moles/Vol] 137 mmol/L Normal 136 - 145 mmol/L AO ADM SS Urea nitrogen [Mass/Vol] 24 mg/dL High 7 - 18 mg/dL AO ADM SS Urea nitrogen/Creatinine [Mass ratio] 28 ratio High 7 - 27 ratio AO ADM SS WBC (Bld) [#/Vol] 9.2 103/mcL Normal 4.5 - 10.8 10^3/mcL AO Workflow SS LABORATORYOrdered By: Adriana Knapp on 06-02-2025 Appearance (U) Clear (06/02/25 8:41 AM) Normal Clear AH Auto Urine SS Bilirubin Ql (U) Negative (06/02/25 8:41 AM) Normal Neg-Trace AH Auto Urine SS Color (U) Yellow (06/02/25 8:41 AM) Normal AH Auto Urine SS Glucose Test strip (U) [Mass/Vol] 500 mg/dL Invalid Interpretation Code Negative AH Auto Urine SS Hemoglobin Auto test strip (U) [Mass/Vol] Moderate *ABN* (06/02/25 8:41 AM) Invalid Interpretation Code Neg-Trace AH Auto Urine SS Ketones Ql (U) Trace mg/dL Normal Neg-Trace AH Auto U rine SS UA Leuk Est Negative (06/02/25 8:41 AM) Normal Negative AH Auto Urine SS UA Nitrite Negative (06/02/25 8:41 AM) Normal Negative AH Auto Urine SS UA pH 6.0 (06/02/25 8:41 AM) Normal 5.0 - 8.0 AH Auto Urine SS UA Protein 30 mg/dL Normal Negative AH Auto Urine SS UA RBC 10-20 /HPF Invalid Interpretation Code 0-2 AH Auto Urine SS UA Spec Grav 1.010 (06/02/25 8:41 AM) Normal 1.006-1.029 Auto Urine SS UA Specimen Type Walton Catheter (06/02/25 8:41 AM) Normal AH Auto Urine SS UA Squam Epithelial 0-2 /HPF Normal 0-20 Au to Urine SS UA Urobilinogen 0.2 E.U./dL Normal 0.2-1.0 Auto Urine SS WBC LM.HPF (Urine sed) [#/Area] 0-2 /HPF Normal 0-5 Auto Urine SS UAon 06-02-2025 Color (U) Yellow Normal [facility] Comment on above: Performed By: #### U A, UAMIC #### [place] [address] Glucose (U) [Mass/Vol] 500 mg/dL Abnormal Negative [facility] Comment on above: Performed By: #### U A, UAMIC #### [place] [address] Ketones Ql (U) Trace Normal Neg-Trace [facility] Comment on above: Performed By: #### U A, UAMIC #### [address] [address] UA Appear Clear Normal Clear [facility] Comment on above: Performed By: #### U A, UAMIC #### [address] [address] UA Blood Moderate Abnormal Neg-Trace [facility] Comment on above: Performed By: #### U A, UAMIC #### [place] [id number] UA Leuk Est Negative Normal Negative [facility] Comment on above: Performed By: #### U A, UAMIC #### [address] [address] UA Nitrite Negative Normal Negative [facility] Comment on above: Performed By: #### U A, UAMIC #### [address] [address] UA pH 6.0 Normal 5.0 - 8.0 [facility] Comment on above: Performed By: #### U A, UAMIC #### [place] [address] UA Protein 30 mg/dL Normal Negative [facility] Comment on above: Performed By: #### U A, UAMIC #### [place] [address] UA Spec Grav 1.010 Normal 1.006-1.029 [facility] Comment on above: Performed By: #### U A, UAMIC #### [place] [address] UA Specimen Type Walton Catheter Normal [facility] Comment on above: Performed By: #### U A, UAMIC #### [place] [address] UA Urobilinogen 0.2 E.U./dL Normal 0.2-1.0 [facility] Comment on above: Performed By: #### U A, UAMIC #### [place] [address] Urobilinogen (U) [Mass/Vol] Negative Normal Neg-Trace [facility] Comment on above: Performed By: #### U A, UAMIC #### [place] [address] UAMICon 06-02-2025 UA RBC 10-20 Abnormal 0-2 [facility] Comment on above: Performed By: #### U A, UAMIC #### [place] [address] UA Squam Epithelial 0-2 Normal 0-20 [facility] Comment on above: Performed By: #### U A, UAMIC #### [place] [address] UA WBC 0-2 Normal 0-5 [facility] Comment on above: Performed By: #### U A, UAMIC #### [place] [address] [facility] 03-12-2025 Albumin [Mass/Vol] 4.3 g/dL Normal 3.6-5.1 [facility] Comment on above: Order Comment: 0; 0; 0; 0; 0FASTING:YESFASTING: YES Performed By: #### 8 59, 873, 899, 866, 81944 #### [facility] [place] [address] [employer]: Elvis Nava MD Albumin/Globulin [Mass ratio] 2.4 {ratio} Normal 1.0-2.5 [facility] Comment on above: Order Comment: 0; 0; 0; 0; 0FASTING:YESFASTING: YES Performed By: #### 8 59, 873, 899, 866, 33015 #### [facility] [place] [address] [employer]: Elvis Nava MD ALP [Catalytic activity/Vol] 47 U/L Normal 35-144 [facility] Comment on above: Order Comment: 0; 0; 0; 0; 0FASTING:YESFASTING: YES Performed By: #### 8 59, 873, 899, 866, 45700 #### [facility] [place] [address] [employer]: Elvis Nava MD ALT [Catalytic activity/Vol] 26 U/L Normal 9-46 [facility] Comment on above: Order Comment: 0; 0; 0; 0; 0FASTING:YESFASTING: YES Performed By: #### 8 59, 873, 899, 866, 40269 #### [facility] [place] [address] [employer]: Elvis Nava MD AST [Catalytic activity/Vol] 23 U/L Normal 10-35 [facility] Comment on above: Order Comment: 0; 0; 0; 0; 0FASTING:YESFASTING: YES Performed By: #### 8 59, 873, 899, 866, 30604 #### [facility] [address] [place] [address] [employer]: Elvis Nava MD Bilirubin [Mass/Vol] 0.5 mg/dL Normal 0.2-1.2 [facility] Comment on above: Order Comment: 0; 0; 0; 0; 0FASTING:YESFASTING: YES Performed By: #### 8 59, 873, 899, 866, 44964 #### [facility] [place] [address] [employer]: Elvis Nava MD BUN/CREATININE RATIO SEE NOTE: Normal 6-22 [facility] Comment on above: Order Comment: 0; 0; 0; 0; 0FASTING:YESFASTING: YES Result Comment: Not Reported: BUN and Creatinine are within reference range. Performed By: #### 8 59, 873, 899, 866, 35727 #### [facility] [place] [address] [employer]: Elvis Nava MD Calcium [Mass/Vol] 8.8 mg/dL Normal 8.6-10.3 [facility] Comment on above: Order Comment: 0; 0; 0; 0; 0FASTING:YESFASTING: YES Performed By: #### 8 59, 873, 899, 866, 36690 #### [facility] [place] [address] [employer]: Elvis Nava MD Chloride [Moles/Vol] 105 mmol/L Normal 98-110 [facility] Comment on above: Order Comment: 0; 0; 0; 0; 0FASTING:YESFASTING: YES Performed By: #### 8 59, 873, 899, 866, 05898 #### [facility] [place] [address] [employer]: Elvis Nava MD CO2 [Moles/Vol] 26 mmol/L Normal 20-32 [facility] Comment on above: Order Comment: 0; 0; 0; 0; 0FASTING:YESFASTING: YES Performed By: #### 8 59, 873, 899, 866, 38681 #### [facility] [address], [address] [place] [address] [employer]: Elvis Nava MD Creatinine [Mass/Vol] 0.94 mg/dL Normal 0.70-1.28 [facility] Comment on above: Order Comment: 0; 0; 0; 0; 0FASTING:YESFASTING: YES Performed By: #### 8 59, 873, 899, 866, 95385 #### [facility] [address], [address] [place] [address] [employer]: Elvis Nava MD GFR/1.73 sq M.predicted among non-blacks MDRD (S/P/Bld) [Vol rate/Area] 83 mL/min/{1.73_m2} Normal > OR = 60 [facility] Comment on above: Order Comment: 0; 0; 0; 0; 0FASTING:YESFASTING: YES Performed By: #### 8 59, 873, 899, 866, [address]8082 #### [facility] [place] [address] [employer] Equipment: Elvis Nava MD Globulin (S) [Mass/Vol] 1.8 g/dL Low 1.9-3.7 [facility] Comment on above: Order Comment: 0; 0; 0; 0; 0FASTING:YESFASTING: YES Performed By: #### 8 59, 873, 899, 866, 85038 #### [facility] [place] [address] [employer]: Elvis Nava MD Glucose [Mass/Vol] 181 mg/dL High 65-99 [facility] Comment on above: Order Comment: 0; 0; 0; 0; 0FASTING:YESFASTING: YES Result Comment: Fasting reference interval For someone without known diabetes, a glucose value >125 mg/dL indicates that they may have diabetes and this should be confirmed with a follow-up test. Performed By: #### 8 59, 873, 899, 866, 25857 #### [facility] [place] [address] [employer]: Elvis Nava MD Potassium [Moles/Vol] 4.8 mmol/L Normal 3.5-5.3 [facility] Comment on above: Order Comment: 0; 0; 0; 0; 0FASTING:YESFASTING: YES Performed By: #### 8 59, 873, 899, 866, 39739 #### [facility] [place] [address] [employer]: Elvis Nava MD Protein [Mass/Vol] 6.1 g/dL Normal 6.1-8.1 [facility] Comment on above: Order Comment: 0; 0; 0; 0; 0FASTING:YESFASTING: YES Performed By: #### 8 59, 873, 899, 866, 27085 #### [facility] [place] [address] [employer]: Elvis Nava MD Sodium [Moles/Vol] 139 mmol/L Normal 135-146 [facility] Comment on above: Order Comment: 0; 0; 0; 0; 0FASTING:YESFASTING: YES Performed By: #### 8 59, 873, 899, 866, 85784 #### [facility] [place] [address] [employer]: Elvis Nava MD Urea nitrogen [Mass/Vol] 22 mg/dL Normal 7-25 [facility] Comment on above: Order Comment: 0; 0; 0; 0; 0FASTING:YESFASTING: YES Performed By: #### 8 59, 873, 899, 866, 21590 #### [facility] [place] [address] [employer]: Elvis Nava MD HEMOGLOBIN A1con 03-12-2025 HbA1c (Bld) [Mass fraction] 7.6 % High <5.7 [facility] Comment on above: Result Comment: For someone without known diabetes, a hemoglobin A1c value of 6.5% or greater indicates that they may have diabetes and this should be confirmed with a follow-up test. For someone with known diabetes, a value <7% indicates that their diabetes is well controlled and a value greater than or equal to 7% indicates suboptimal control. A1c targets should be individualized based on duration of diabetes, age, comorbid conditions, and other considerations. Currently, no consensus exists regarding use of hemoglobin A1c for diagnosis of diabetes for children. Performed By: #### 8 59, 873, 899, 866, 02255 #### [facility] [place] [address] [employer]: Elvis Nava MD T3, [facility] 03-12-2025 Free T3 [Mass/Vol] 2.8 pg/mL Normal 2.3-4.2 [facility] Comment on above: Performed By: #### 8 59, 873, 899, 866, 36910 #### [facility] [place] [address] [employer]: Elvis Nava MD T4, [facility] 03-12-2025 Free T4 [Mass/Vol] 1.3 ng/dL Normal 0.8-1.8 [facility] Comment on above: Performed By: #### 8 59, 873, 899, 866, 61184 #### [facility] [place] [address] [employer]: Elvis Nava MD TSHon 03-12-2025 TSH Qn 0.98 m[IU]/L Normal 0.40-4.50 [facility] Comment on above: Performed By: #### 8 59, 873, 899, 866, 79457 #### [facility] [place] [address] [employer] Equipment: Elvis Nava MD BASIC METABOLIC PANELon 11-22 BUN/CREATININE RATIO SEE NOTE: Normal 6-22 [facility] Comment on above: Order Comment: 0; 0; 0 Result Comment: Not Reported: BUN and Creatinine are within reference range. Performed By: #### 8 59, 873, 899, 866, 07522 #### [facility] [place] [address] [employer]: Elvis Nava MD Calcium [Mass/Vol] 9.3 mg/dL Normal 8.6-10.3 [facility] Comment on above: Order Comment: 0; 0; 0 Performed By: #### 8 59, 873, 899, 866, 26856 #### [facility] [place] [address] [employer]: Elvis Nava MD Chloride [Moles/Vol] 105 mmol/L Normal 98-110 [facility] Comment on above: Order Comment: 0; 0; 0 Performed By: #### 8 59, 873, 899, 866, 26498 #### [facility] [place] [address] Engineer [employer]: Elvis Nava MD CO2 [Moles/Vol] 27 mmol/L Normal 20-32 [facility] Comment on above: Order Comment: 0; 0; 0 Performed By: #### 8 59, 873, 899, 866, 77611 #### [facility] [place] [address] [employer]: Elvis Nava MD Creatinine [Mass/Vol] 0.93 mg/dL Normal 0.70-1.28 [facility] Comment on above: Order Comment: 0; 0; 0 Performed By: #### 8 59, 873, 899, 866, 63218 #### [facility] [place] [address] [employer]: Elvis Nava MD GFR/1.73 sq M.predicted among non-blacks MDRD (S/P/Bld) [Vol rate/Area] 85 mL/min/{1.73_m2} Normal > OR = 60 [facility] Comment on above: Order Comment: 0; 0; 0 Performed By: #### 8 59, 873, 899, 866, 89956 #### [place] [address] Engineer [employer] Equipment: Elvis Nava MD Glucose [Mass/Vol] 172 mg/dL High 65-99 [facility] Comment on above: Order Comment: 0; 0; 0 Result Comment: Fasting reference interval For someone without known diabetes, a glucose value >125 mg/dL indicates that they may have diabetes and this should be confirmed with a follow-up test. Performed By: #### 8 59, 873, 899, 866, 05122 #### [facility] [place] [address] [employer]: Elvis Nava MD Potassium [Moles/Vol] 4.8 mmol/L Normal 3.5-5.3 [facility] Comment on above: Order Comment: 0; 0; 0 Performed By: #### 8 59, 873, 899, 866, 64193 #### [facility] [place] [address] [employer]: Elvis Nava MD Sodium [Moles/Vol] 139 mmol/L Normal 135-146 [facility] Comment on above: Order Comment: 0; 0; 0 Performed By: #### 8 59, 873, 899, 866, 69818 #### [facility] [place] [address] [employer]: Elvis Nava MD Urea nitrogen [Mass/Vol] 22 mg/dL Normal 7-25 [facility] Comment on above: Order Comment: 0; 0; 0 Performed By: #### 8 59, 873, 899, 866, 19893 #### [facility] [place] [address] [employer]: Elvis Nava MD T3, TOTALon 12-10-2024 T3, TOTAL 88 ng/dL Normal 76-181 [facility] Comment on above: Performed By: #### 8 59, 873, 899, 866, 81243 #### [facility] [address], [address] [place] [address] Engineer [employer] Equipment: Elvis Nava MD T4, FREEon 12-10-2024 Free T4 [Mass/Vol] 1.4 ng/dL Normal 0.8-1.8 [facility] Comment on above: Performed By: #### 8 59, 873, 899, 866, 45762 #### [facility] of [place] [address] [address] , [address] [place] [address] Engineer [employer] Equipment: Elvis Nava MD TESTOSTERONE, TOTAL, MALES ( ADULT), IAon 12-10-2024 TESTOSTERONE, TOTAL, MALES (ADULT), IA 347 ng/dL Normal 250-827 [facility] Comment on above: Performed By: #### 8 59, 873, 899, 866, 97536 #### [facility] [address], [address] [place] [address] Engineer [employer] Equipment: Elvis Nava MD TSHon 12-10-2024 TSH Qn 0.67 m[IU]/L Normal 0.40-4.50 [facility] Comment on above: Performed By: #### 8 59, 873, 899, 866, 33360 #### [facility] [address], [address] [place] [address] Engineer [employer]ated Equipment: Elvis Nava MD ALBUMIN, RANDOM URINE W/CREA TININEon 10-21-2024 ALBUMIN, URINE Normal [facility] Comment on above: Performed By: #### 8 59, 873, 899, 866, 45191 #### [facility] of [address], [address] [place] [address] Engineer [employer]ated Equipment: Elvis Nava MD ALBUMIN/CREATININE RATIO, RANDOM URINE Normal [facility] Comment on above: Performed By: #### 8 59, 873, 899, 866, 83150 #### [facility] [place] [address] Engineer [employer]ated Equipment: Elvis Nava MD CREATININE, RANDOM URINE Normal [facility] Comment on above: Performed By: #### 8 59, 873, 899, 866, 38028 #### [facility] [address], [address] [place] [address] Engineer [employer]ated Equipment: Elvis Nava MD CBC (INCLUDES DIFF/PLT)on Basophils (Bld) [#/Vol] 0.072 10*3/uL Normal 0-200 [facility] Comment on above: Performed By: #### 8 59, 873, 899, 866, 39342 #### [facility] [place] [address] [employer]: Elvis Nava MD Basophils/100 WBC (Bld) 1.2 % Normal [facility] Comment on above: Performed By: #### 8 59, 873, 899, 866, 00735 #### [facility] [place] [address] [employer] Equipment: Elvis Nava MD Eosinophils (Bld) [#/Vol] 0.372 10*3/uL Normal 15-500 [facility] Comment on above: Performed By: #### 8 59, 873, 899, 866, 42271 #### [facility] [place] [address] Engineer [employer]ated Equipment: Elvis Nava MD Eosinophils/100 WBC (Bld) 6.2 % Normal [facility] Comment on above: Performed By: #### 8 59, 873, 899, 866, 28375 #### [facility] [place] [address] Engineer [employer] Equipment: Elvis Nava MD Erythrocyte distribution width (RBC) [Ratio] 12.2 % Normal 11.0-15.0 [facility] Comment on above: Performed By: #### 8 59, 873, 899, 866, 70570 #### [facility] [place] [address] [employer]: Elvis Nava MD Hematocrit (Bld) [Volume fraction] 41.5 % Normal 38.5-50.0 [facility] Comment on above: Performed By: #### 8 59, 873, 899, 866, 16835 #### [facility] of [address], [address] [place] [address] Engineer [employer] Equipment: Elvis Nava MD Hemoglobin (Bld) [Mass/Vol] 13.6 g/dL Normal 13.2-17.1 [facility] Comment on above: Performed By: #### 8 59, 873, 899, 866, 34527 #### [facility] of [address], [address] [place] [address] Engineer [employer]ated Equipment: Elvis Nava MD Lymphocytes (Bld) [#/Vol] 1.656 10*3/uL Normal 850-3900 [facility] Comment on above: Performed By: #### 8 59, 873, 899, 866, 69317 #### [facility] of [address], [address] [place] [address] Engineer [employer]ated Equipment: Elvis Nava MD Lymphocytes/100 WBC (Bld) 27.6 % Normal [facility] Comment on above: Performed By: #### 8 59, 873, 899, 866, 82480 #### [facility] [address], [address] [place] [address] Engineer Automated Equipment: Elvis Nava MD MCH (RBC) [Entitic mass] 30.4 pg Normal 27.0-33.0 [facility] Comment on above: Performed By: #### 8 59, 873, 899, 866, 50704 #### [facility] of [address], [address] [place] [address] Engineer Autom[employer] Equipment: Elvis Nava MD MCHC (RBC) [Mass/Vol] 32.8 g/dL Normal 32.0-36.0 [facility] Comment on above: Result Comment: For adults, a slight decrease in the calculated MCHC value (in the range of 30 to 32 g/dL) is most likely not clinically significant; however, it should be interpreted with caution in correlation with other red cell parameters and the patient's clinical condition. Performed By: #### 8 59, 873, 899, 866, 86656 #### [facility] of [place] [address] [employer]: Elvis Nava MD MCV (RBC) [Entitic vol] 92.8 fL Normal 80.0-100.0 [facility] Comment on above: Performed By: #### 8 59, 873, 899, 866, 51731 #### [facility] [place] [address] [employer] Equipment: Elvis Nava MD Monocytes (Bld) [#/Vol] 0.522 10*3/uL Normal 200-950 [facility] Comment on above: Performed By: #### 8 59, 873, 899, 866, 96573 #### [facility] [place] [address] Engineer [employer] Equipment: Elvis Nava MD Monocytes/100 WBC (Bld) 8.7 % Normal [facility] Comment on above: Performed By: #### 8 59, 873, 899, 866, 02887 #### [facility] [place] [address] Engineer Automated Equipment: Elvis Nava MD Neutrophils (Bld) [#/Vol] 3.378 10*3/uL Normal 6941-7212 [facility] Comment on above: Performed By: #### 8 59, 873, 899, 866, 14509 #### [facility] [place] [address] Engineer [employer]ated Equipment: Elvis Nava MD Neutrophils/100 WBC (Bld) 56.3 % Normal [facility] Comment on above: Performed By: #### 8 59, 873, 899, 866, 12417 #### [facility] [place] [address] Engineer Automated Equipment: Elvis Nava MD Platelet mean volume (Bld) [Entitic vol] 10.8 fL Normal 7.5-12.5 [facility] Comment on above: Performed By: #### 8 59, 873, 899, 866, 37151 #### [facility] of [address], [address] [place] [address] Engineer [employer] Equipment: Elvis Nava MD Platelets (Bld) [#/Vol] 189 10*3/uL Normal 140-400 [facility] Comment on above: Performed By: #### 8 59, 873, 899, 866, 43534 #### [facility] [address], [address] [place] [address] Engineer [employer]ated Equipment: Elvis Nava MD RBC (Bld) [#/Vol] 4.47 10*6/uL Normal 4.20-5.80 [facility] Comment on above: Performed By: #### 8 59, 873, 899, 866, 43164 #### [facility] of [address], [address] [place] [address] Engineer [employer]ated Equipment: Elvis Nava MD WBC (Bld) [#/Vol] 6.0 10*3/uL Normal 3.8-10.8 [facility] Comment on above: Performed By: #### 8 59, 873, 899, 866, 29681 #### [facility] [address], [address] [place] [address] Engineer Automated Equipment: Elvis Nava MD [facility] 10-21-2024 Albumin [Mass/Vol] 4.3 g/dL Normal 3.6-5.1 [facility] Comment on above: Performed By: #### 8 59, 873, 899, 866, 32210 #### [facility] of [address], [address] [place] [address] Engineer Automated Equipment: Elvis Nava MD Albumin/Globulin [Mass ratio] 2.2 {ratio} Normal 1.0-2.5 [facility] Comment on above: Performed By: #### 8 59, 873, 899, 866, 47210 #### [facility] of [address], [address] [place] [address] Engineer [employer]ated Equipment: Elvis Nava MD ALP [Catalytic activity/Vol] 56 U/L Normal 35-144 [facility] Comment on above: Performed By: #### 8 59, 873, 899, 866, 18196 #### [facility] [place] [address] Engineer Automated Equipment: Elvis Nava MD ALT [Catalytic activity/Vol] 25 U/L Normal 9-46 [facility] Comment on above: Performed By: #### 8 59, 873, 899, 866, 10436 #### [facility] [place] [address] Engineer Automated Equipment: Elvis Nava MD AST [Catalytic activity/Vol] 23 U/L Normal 10-35 [facility] Comment on above: Performed By: #### 8 59, 873, 899, 866, 11102 #### [facility] [place] [address] Engineer [employer]ated Equipment: Elvis Nava MD Bilirubin [Mass/Vol] 0.5 mg/dL Normal 0.2-1.2 [facility] Comment on above: Performed By: #### 8 59, 873, 899, 866, 01672 #### [facility] [place] [address] Engineer Automated Equipment: Elvis Nava MD BUN/CREATININE RATIO SEE NOTE: Normal 6-22 [facility] Comment on above: Result Comment: Not Reported: BUN and Creatinine are within reference range. Performed By: #### 8 59, 873, 899, 866, 74195 #### [facility] [address], [address] [place] [address] Engineer Automated Equipment: Elvis Nava MD Calcium [Mass/Vol] 9.0 mg/dL Normal 8.6-10.3 [facility] Comment on above: Performed By: #### 8 59, 873, 899, 866, 85625 #### [facility] [place] [address] Engineer Automated Equipment: Elvis Nava MD Chloride [Moles/Vol] 105 mmol/L Normal 98-110 [facility] Comment on above: Performed By: #### 8 59, 873, 899, 866, 68915 #### [facility] [address], [address] [place] [address] Engineer Automated Equipment: Elvis Nava MD CO2 [Moles/Vol] 30 mmol/L Normal 20-32 [facility] Comment on above: Performed By: #### 8 59, 873, 899, 866, 95888 #### [facility] [place] [address] Engineer Automated Equipment: Elvis Nava MD Creatinine [Mass/Vol] 0.84 mg/dL Normal 0.70-1.28 [facility] Comment on above: Performed By: #### 8 59, 873, 899, 866, 91405 #### [facility] [address], [address] [place] [address] Engineer Automated Equipment: Elvis Nava MD GFR/1.73 sq M.predicted among non-blacks MDRD (S/P/Bld) [Vol rate/Area] 90 mL/min/{1.73_m2} Normal > OR = 60 [facility] Comment on above: Performed By: #### 8 59, 873, 899, 866, 55003 #### [facility] [place] [address] Engineer [employer]ated Equipment: Elvis Nava MD Globulin (S) [Mass/Vol] 2.0 g/dL Normal 1.9-3.7 [facility] Comment on above: Performed By: #### 8 59, 873, 899, 866, 50785 #### [facility] [place] [address] Engineer Automated Equipment: Elvis Nava MD Glucose [Mass/Vol] 166 mg/dL High 65-99 [facility] Comment on above: Result Comment: Fasting reference interval For someone without known diabetes, a glucose value >125 mg/dL indicates that they may have diabetes and this should be confirmed with a follow-up test. Performed By: #### 8 59, 873, 899, 866, 54131 #### [facility] [address], [address] [place] [address] Engineer Automated Equipment: Elvis Nava MD Potassium [Moles/Vol] 4.8 mmol/L Normal 3.5-5.3 [facility] Comment on above: Performed By: #### 8 59, 873, 899, 866, 02257 #### [facility] [place] [address] Engineer Automated Equipment: Elvis Nava MD Protein [Mass/Vol] 6.3 g/dL Normal 6.1-8.1 [facility] Comment on above: Performed By: #### 8 59, 873, 899, 866, 38117 #### [facility] [place] [address] Engineer Automated Equipment: Elvis Nava MD Sodium [Moles/Vol] 141 mmol/L Normal 135-146 [facility] Comment on above: Performed By: #### 8 59, 873, 899, 866, 65539 #### [facility] [place] [address] Engineer Automated Equipment: Elvis Nava MD Urea nitrogen [Mass/Vol] 17 mg/dL Normal 7-25 [facility] Comment on above: Performed By: #### 8 59, 873, 899, 866, 12268 #### [facility] [place] [address] Engineer Automated Equipment: Elvis Nava MD HEMOGLOBIN A1con 10-21-2024 HEMOGLOBIN A1c Normal [facility] Comment on above: Performed By: #### 8 59, 873, 899, 866, 90655 #### [facility] [place] [address] [employer]ated Equipment: Elvis Nava MD LIPID PANEL, STANDARDon 09-24 Cholesterol [Mass/Vol] 214 mg/dL High <200 [facility] Comment on above: Order Comment: 0; 0; 0; 0; 0; 0; 0; 0; 0FASTING:YESFASTING: YES Performed By: #### 8 59, 873, 899, 866, 63515 #### [facility] [place] [address] Engineer Automated Equipment: Elvis Nava MD Cholesterol in HDL [Mass/Vol] 45 mg/dL Normal > OR = 40 [facility] Comment on above: Order Comment: 0; 0; 0; 0; 0; 0; 0; 0; 0FASTING:YESFASTING: YES Performed By: #### 8 59, 873, 899, 866, 19491 #### [facility] [place] [address] Engineer Automated Equipment: Elvis Nava MD Cholesterol in LDL [Mass/Vol] 144 mg/dL High [facility] Comment on above: Order Comment: 0; 0; 0; 0; 0; 0; 0; 0; 0FASTING:YESFASTING: YES Result Comment: Refe rence range: <100 Desirable range <100 mg/dL for primary prevention; <70 mg/dL for patients with CHD or diabetic patients with > or = 2 CHD risk factors. LDL-C is now calculated using the Juan-Juno calculation, which is a validated novel method providing better accuracy than the Friedewald equation in the estimation of LDL-C. Juan STILL et al. JOHN. 2013;310(19): 1817-6176 (http://education.[employer] Carson/faq/XYV029) Performed By: #### 8 59, 873, 899, 866, 53686 #### [facility] [place] [address] Engineer [employer]ated Equipment: Elvis Nava MD Cholesterol.total/Chol esterol in HDL [Mass ratio] 4.8 {ratio} Normal <5.0 [facility] Comment on above: Order Comment: 0; 0; 0; 0; 0; 0; 0; 0; 0FASTING:YESFASTING: YES Performed By: #### 8 59, 873, 899, 866, 07273 #### [facility] [place] [address] [place] [address] Engineer Automated Equipment: Elvis Nava MD NON HDL CHOLESTEROL 169 mg/dL (calc) High <130 [facility] Comment on above: Order Comment: 0; 0; 0; 0; 0; 0; 0; 0; 0FASTING:YESFASTING: YES Result Comment: For patients with diabetes plus 1 major ASCVD risk factor, treating to a non-HDL-C goal of <100 mg/dL (LDL-C of <70 mg/dL) is considered a therapeutic option. Performed By: #### 8 59, 873, 899, 866, 41015 #### [facility] [address], [address] [place] [address] Engineer Automated Equipment: Elvis Nava MD Triglyceride [Mass/Vol] 127 mg/dL Normal <150 [facility] Comment on above: Order Comment: 0; 0; 0; 0; 0; 0; 0; 0; 0FASTING:YESFASTING: YES Performed By: #### 8 59, 873, 899, 866, 16341 #### [facility] [address], [address] [place] [address] Engineer Automated Equipment: Elvis Nava MD PSA, [facility]10-21-2024 PSA, TOTAL Normal [facility] Comment on above: Performed By: #### 8 59, 873, 899, 866, 77770 #### [facility] [address], [address] [place] [address] Engineer Automated Equipment: Elvis Nava MD T3, 10-21-2024 T3, TOTAL Normal [facility] Comment on above: Performed By: #### 8 59, 873, 899, 866, 83741 #### [facility] of [address], [address] [place] [address] Engineer Automated Equipment: Elvis Nava MD T4, 10-21-2024 T4, FREE Normal [facility] Comment on above: Performed By: #### 8 59, 873, 899, 866, 62597 #### [facility] [place] [address] [place] [address] Engineer Automated Equipment: Elvis Nava MD TSHon 10-21-2024 TSH Normal [facility] Comment on above: Performed By: #### 8 59, 873, 899, 866, 54172 #### [facility] [place] [address] Engineer Automated Equipment: Elvis Nava MD ALBUMIN, RANDOM URINE W/CREA TININEon 08-28-2024 ALBUMIN, URINE 4.1 mg/dL Normal See Note: [facility] Comment on above: Order Comment: 0; 0; 0; 0; 0 Result Comment: Refe rence Range: Reference Range Not established Performed By: #### 8 59, 873, 899, 866, 37647 #### [facility] [place] [address] Engineer Automated Equipment: Elvis Nava MD ALBUMIN/CREATININE RATIO, RANDOM URINE 26 mg/g creat Normal <30 [facility] Comment on above: Order Comment: 0; 0; 0; 0; 0 Result Comment: The ADA defines abnormalities in albumin excretion as follows: Albuminuria Category Result (mg/g creatinine) Normal to Mildly increased <30 Moderately increased 30-299 Severely increased > OR = 300 The ADA recommends that at least two of three specimens collected within a 3-6 month period be abnormal before considering a patient to be within a diagnostic category. Performed By: #### 8 59, 873, 899, 866, 66085 #### [facility] [place] [address] Engineer Automated Equipment: Elvis Nava MD Creatinine (U) [Mass/Vol] 155 mg/dL Normal 20-320 [facility] Comment on above: Order Comment: 0; 0; 0; 0; 0 Performed By: #### 8 59, 873, 899, 866, 43217 #### [facility] [place] [address] Engineer Automated Equipment: Elvis Nava MD BASIC METABOLIC PANELon BUN/CREATININE RATIO SEE NOTE: Normal - Ques t [facility] Comment on above: Result Comment: Not Reported: BUN and Creatinine are within reference range. Performed By: #### 8 59, 873, 899, 866, 16094 #### [facility] [place] [address] Engineer Automated Equipment: Elvis Nava MD Calcium [Mass/Vol] 9.1 mg/dL Normal 8.6-10.3 [facility] Comment on above: Performed By: #### 8 59, 873, 899, 866, 67639 #### [facility] [place] [address] Engineer Automated Equipment: Elvis Nava MD Chloride [Moles/Vol] 105 mmol/L Normal 98-110 [facility] Comment on above: Performed By: #### 8 59, 873, 899, 866, 82087 #### [facility] [place] [address] Engineer Automated Equipment: Elvis Nava MD CO2 [Moles/Vol] 27 mmol/L Normal 20-32 [facility] Comment on above: Performed By: #### 8 59, 873, 899, 866, 40094 #### [facility] [place] [address] Engineer Automated Equipment: Elvis Nava MD Creatinine [Mass/Vol] 0.77 mg/dL Normal 0.70-1.28 [facility] Comment on above: Performed By: #### 8 59, 873, 899, 866, 11632 #### [facility] [place] [address] Engineer [employer] Equipment: Elvis Nava MD GFR/1.73 sq M.predicted among non-blacks MDRD (S/P/Bld) [Vol rate/Area] 92 mL/min/{1.73_m2} Normal > OR = 60 [facility] Comment on above: Performed By: #### 8 59, 873, 899, 866, [id number] #### [facility] [place] [id number] Engineer Automated Equipment: Elvis Nava MD Glucose [Mass/Vol] 165 mg/dL High 65-99 [facility] Comment on above: Result Comment: Fasting reference interval For someone without known diabetes, a glucose value >125 mg/dL indicates that they may have diabetes and this should be confirmed with a follow-up test. Performed By: #### 8 59, 873, 899, 866, [id number] #### [facility] [place] [address] [employer]ated Equipment: Elvis Nava MD Potassium [Moles/Vol] 4.6 mmol/L Normal 3.5-5.3 [facility] Comment on above: Performed By: #### 8 59, 873, 899, 866, [id number] #### [facility] [place] [address] Engineer Automated Equipment: Elvis Nava MD Sodium [Moles/Vol] 141 mmol/L Normal 135-146 [facility] Comment on above: Performed By: #### 8 59, 873, 899, 866, [id number] #### [facility] [place] [address] Engineer Automated Equipment: Elvis Nava MD Urea nitrogen [Mass/Vol] 17 mg/dL Normal 7-25 [facility] Comment on above: Performed By: #### 8 59, 873, 899, 866, [id number] #### [facility] [place] [address] Engineer Automated Equipment: Elvis Nava MD HEMOGLOBIN A1con 08-28-2024 HEMOGLOBIN A1c 8.1 % of total Hgb High <5.7 [facility] Comment on above: Result Comment: For someone without known diabetes, a hemoglobin A1c value of 6.5% or greater indicates that they may have diabetes and this should be confirmed with a follow-up test. For someone with known diabetes, a value <7% indicates that their diabetes is well controlled and a value greater than or equal to 7% indicates suboptimal control. A1c targets should be individualized based on duration of diabetes, age, comorbid conditions, and other considerations. Currently, no consensus exists regarding use of hemoglobin A1c for diagnosis of diabetes for children. Performed By: #### 8 59, 873, 899, 866, [id number] #### [facility] [address], [address] [place] [address] Engineer Automated Equipment: Elvis Nava MD T4, FREEon 08-28-2024 Free T4 [Mass/Vol] 1.4 ng/dL Normal 0.8-1.8 [facility] Comment on above: Performed By: #### 8 59, 873, 899, 866, [id number] #### [facility] [address], [address] [place] [address] Engineer Automated Equipment: Elvis Nava MD TSHon 08-28-2024 TSH Qn 1.03 m[IU]/L Normal 0.40-4.50 [facility] Comment on above: Performed By: #### 8 59, 873, 899, 866, [id number] #### [facility] [address], [address] [place] [address] Engineer Automated Equipment: Elvis Nava MD No Panel InformationOrdered By: Jimmie Velez on 01-29-2024 Angina Index 0 [facility] Work Phone: Ascending Aorta 4.1 cm [facility] Work Phone: Ascending Aorta Index 1.79 cm/m2 [facility] Work Phone: AV Area by Peak Velocity 2.9 cm2 [facility] Work Phone: AV Peak Gradient 15 mmHg [facility] Work Phone: AV Peak Velocity 1.9 m/s [facility] Work Phone: AV Velocity Ratio 0.68 [facility] Work Phone: EVE/BSA Peak Velocity 1.3 cm2/m2 [facility] Work Phone: Baseline Diastolic BP 92 mmHg [facility] Work Phone: Baseline HR 65 bpm [facility] Work Phone: Baseline ST Depression 0 mm [facility] Work Phone: Baseline Systolic BP 169 mmHg [facility] Work Phone: Márquez Treadmill Score 8 [facility] Work Phone: EF BP 53 % Abnormal 55 - 100 % [facility] Work Phone: Exercise Duration Seconds 46 sec [facility] Work Phone: Exercise Duration Time 7 min [facility] Work Phone: Fractional Shortening 2D 35 % 28 - 44 % [facility] Work Phone: Interpretation and review of laboratory results Abnormal [facility] Work Phone: IVSd 1.4 cm Abnormal 0.6 - 1.0 cm [facility] Work Phone: LV EDV A2C 99 mL [facility] Work Phone: LV EDV A4C 147 mL [facility] Work Phone: LV EDV BP 125 mL 67 - 155 mL [facility] Work Phone: LV EDV Index A2C 43 mL/m2 [facility] Work Phone: LV EDV Index A4C 64 mL/m2 [facility] Work Phone: LV EDV Index BP 55 mL/m2 [facility] Work Phone: LV Ejection Fraction A2C 47 % [facility] Work Phone: LV Ejection Fraction A4C 55 % [facility] Work Phone: LV ESV A2C 52 mL [facility] Work Phone: LV ESV A4C 66 mL [facility] Work Phone: LV ESV BP 59 mL Abnormal 22 - 58 mL [facility] Work Phone: LV ESV Index A2C 23 mL/m2 [facility] Work Phone: LV ESV Index A4C 29 mL/m2 [facility] Work Phone: LV ESV Index BP 26 mL/m2 [facility] Work Phone: LV Mass 2D 197.6 g 88 - 224 g [facility] Work Phone: LV Mass 2D Index 86.3 g/m2 49 - 115 g/m2 [facility] [employer] Work Phone: LV RWT Ratio 0.65 [facility] [employer] Work Phone: LVIDd 4.0 cm Abnormal 4.2 - 5.9 cm [facility] Work Phone: LVIDd Index 1.75 cm/m2 [facility] [employer] Work Phone: LVIDs 2.6 cm [facility] Work Phone: LVIDs Index 1.14 cm/m2 [facility] [employer] Work Phone: LVOT Area 4.2 cm2 [facility] [employer] Work Phone: LVOT Cardiac Output 8.1 liter/minute [facility] Work Phone: LVOT Diameter 2.3 cm [facility] Work Phone: LVOT Mean Gradient 3 mmHg [facility] [employer] Work Phone: LVOT Peak Gradient 7 mmHg [facility] [employer] Work Phone: LVOT Peak Velocity 1.3 m/s [facility] [employer] Work Phone: LVOT Stroke Volume Index 45.7 mL/m2 [facility] [employer] Work Phone: LVOT SV 104.6 ml [facility] [employer] Work Phone: LVOT VTI 25.2 cm [facility] [employer] Work Phone: LVPWd 1.3 cm Abnormal 0.6 - 1.0 cm [facility] [employer] Work Phone: Recovery Stage 1 BP 190/88 mmHg [facility] [employer] Work Phone: Recovery Stage 1 Duration 1 min:sec [facility] [employer] Work Phone: Recovery Stage 1 HR 115 bpm [facility] [employer] Work Phone: Recovery Stage 2 BP 178/80 mmHg [facility] Work Phone: Recovery Stage 2 Duration 3 min:sec [facility] Work Phone: Recovery Stage 2 HR 87 bpm [facility] Work Phone: Recovery Stage 3 BP 148/86 mmHg [facility] Work Phone: Recovery Stage 3 Duration 5 min:sec [facility] Work Phone: Recovery Stage 3 HR 77 bpm [facility] Work Phone: Stress Diastolic BP 98 mmHg [facility] Work Phone: Stress Estimated Workload 4.4 METS [employer] [facility] Work Phone: Stress Peak HR 127 bpm [facility] Work Phone: Stress Percent HR Achieved 88 % [employer] [facility] Work Phone: Stress Rate Pressure Product 68951 bpm*mmHg [facility] [employer] Work Phone: Stress ST Depression 0 mm [facility] Work Phone: Stress Stage 1 BP 162/90 mmHg [facility] Work Phone: Stress Stage 1 Duration 3 min:sec [facility] Work Phone: Stress Stage 1 HR 102 bpm [facility] Work Phone: Stress Stage 2 BP 180/98 mmHg [facility] Work Phone: Stress Stage 2 Duration 6 min:sec [employer] [facility] Work Phone: Stress Stage 2 HR 115 bpm [facility] Work Phone: Stress Stage 3 Duration 7:46 min:sec [facility] Work Phone: Stress Stage 3 HR 127 bpm [facility] Work Phone: Stress Systolic BP 180 mmHg [facility] Work Phone: Stress Target HR 144 bpm [facility] Work Phone: [facility] Work Phone: No Panel Informationon 01-28 Study Impression: Normal stress echocardiogram. No echocardiographic evidence of infarction. No echocardiographic evidence of ischemia. Findings suggest a low risk of adverse cardiac events. However, as described below there is an abnormal heart rhythm during exericse, MAT, but cannot rule out paroxysmal atrial fibrillation. Post-stress Echo: The post-stress echo showed no new wall motion abnormalities. Left Ventricle: Left ventricle size is normal. Mildly increased wall thickness. Normal left ventricular systolic function. EF by 2D Simpsons Biplane is 53%. Normal wall motion. Right Ventricle: Right ventricle size is normal. Normal systolic function. Aorta: Not well visualized. Mildly dilated ascending aorta. Ao ascending diameter is 4.1 cm. Stress ECG: Probable multi-focal atrial tachycardia. Conclusion: The stress test is normal with respect to lack of ischemic findings. However, there appears to be a rhythm change. Stress Test: A modified Jovi protocol stress test was performed. Overall, the patient's exercise capacity was below average for their age. The patient reached stage 1 of the protocol after exercising for 7 min and 46 sec. The patient experienced no angina during the test. Hemodynamics are adequate for diagnosis. Blood pressure demonstrated a normal response and heart rate demonstrated a normal response to stress. The patient's heart rate recovery was normal. The patient reported no chest pain during the stress test. Resting ECG: There are non-diagnostic Q-waves I, L. Consider dedicated TTE to evaluate aortic valve and root. Yearly followup initially recommended for dilated ascending aorta. Consider additional evaluation for exercise induced arrhythmia which may be limiting overall exercise capacity. Left Ventricle Left ventricle size is normal. Mildly increased wall thickness. Normal left ventricular systolic function. EF by 2D Simpsons Biplane is 53%. Normal wall motion. Right Ventricle Right ventricle size is normal. Normal systolic function. Mitral Valve Valve structure is normal. No regurgitation. No stenosis noted. Tricuspid Valve Valve structure is normal. Trace regurgitation. Aortic Valve Not well visualized. Mildly calcified cusps. Cusp sclerosis. No regurgitation. No significant stenosis. Ascending Aorta Not well visualized. Mildly dilated ascending aorta. Ao ascending diameter is 4.1 cm. Pericardium No pericardial effusion. Study Details Image quality: adequate. Technical qualifiers: Technically difficult study with poor endocardial visualization. Ultrasound enhancement agent was given to enhance imaging. Resting ECG The ECG shows normal sinus rhythm. Resting ECG shows no ST-segment deviation. The ECG shows premature atrial contractions. There are non-diagnostic Q-waves I, L. Stress Findings A modified Jovi protocol stress test was performed. Overall, the patient's exercise capacity was below average for their age. The patient reached stage 1 of the protocol after exercising for 7 min and 46 sec. The patient experienced no angina during the test. Suma rating of perceived exertion was 17. Hemodynamics are adequate for diagnosis. Blood pressure demonstrated a normal response and heart rate demonstrated a normal response to stress. The patient's heart rate recovery was normal. The patient reported no symptoms prior to the stress test. The patient reported no chest pain during the stress test. The test was stopped because the patient experienced fatigue. Stress ECG Arrhythmias during stress: frequent PACs. Probable multi-focal atrial tachycardia. No ST depression was noted. Arrhythmias during recovery: occasional PACs. Conclusion: The stress test is normal with respect to lack of ischemic findings. However, there appears to be a rhythm change. Echo Post Stress Left ventricle cavity size is decreased post-stress. Left ventricle systolic function is hyperdynamic post-stress. The post-stress echo showed no new wall motion abnormalities. Study Impression Normal stress echocardiogram. No echocardiographic evidence of infarction. No echocardiographic evidence of ischemia. Findings suggest a low risk of adverse cardiac events. However, as described below there is an abnormal heart rhythm during exericse, MAT but cannot rule out paroxysmal atrial fibrillation. Wall Scoring Resting Score Index: 1.00 The left ventricular wall motion is normal. Wall Scoring Stress Score Index: 1.00 The left ventricular wall motion is globally hyperkinetic. CV EPIPHANY Vital signsOrdered By: Anjali Velez on 01-29-2024 Oxygen saturation in Blood 95 % [email or web address] Work Phone: Knee 4 or More Viewson 10-17 Knee 4 or More Views [facility] Imaging Services [address] [place] [address] Knee 4 or More Views MR#: [id number] Acct: [id number] Name: HALIE HERNANDEZ Rep #: [id number] : 1945 M 77 From: Augie Willett MD PCP: MODESTA ROMANO Status: REG CLI Study: Knee 4 or More Views Date of Exam: 10/17/22 Exam# [id number] Ordering Dr: ANA LAURA STONE EXAM: XR RIGHT KNEE COMPLETE, 4 OR MORE VIEWS CLINICAL INDICATION: FOLLOW UP TOTAL KNEE ARTHROPLASTY TECHNIQUE: Four or more views of the right knee. This report was created using [employer] report generation technology. COMPARISON: 02/24/2020. FINDINGS: BONES/JOINTS: Metallic arthroplasty in the medial femorotibial compartment remains normal and in good anatomic alignment. Minimal bone spurs in the lateral femoral condyle and in the lateral proximal tibial condyle are unchanged. Minimal bone spurs in the posterior superior and posterior inferior surface of the patella are unchanged. No acute fracture. No sclerotic or destructive changes observed. SOFT TISSUES: Unremarkable. No soft tissue swelling or gas. No radiopaque foreign body. RAD/Knee 4 or More Views IMPRESSION: No acute findings in the right knee and no interval change including the metallic arthroplasty in the medial femoral tibial compartment when compared to 02/24/2020. Electronically Signed: Augie Willett MD at 13:24 EST Reading Location ID and State: [address] [place] [address] , Service support , CC: MODESTA ROMANO; ANA LAURA STONE Applied Psychology Professor: Signed Normal [facility] Knee 4 or More Views [facility] Imaging Services [address] [place] [address] Knee 4 or More Views MR#: [id number] Acct: [id number] Name: HALIE HERNANDEZ Rep #: [id number] : 1945 M 77 From: Augie Willett MD PCP: MODESTA ROMANO Status: REG CLI Study: Knee 4 or More Views Date of Exam: 10/17/22 Exam# [id number] Ordering Dr: ANA LAURA STONE EXAM: XR LEFT KNEE COMPLETE, 4 OR MORE VIEWS CLINICAL INDICATION: FOLLOW UP TOTAL KNEE ARTHROPLASTY TECHNIQUE: Four or more views of the left knee. This report was created using [employer] report generation technology. COMPARISON: 02/24/2020. FINDINGS: BONES/JOINTS: Metallic prosthesis in the medial femorotibial compartment remains intact and in good anatomic alignment. Minimal bone spur in the posterior inferior surface of the patella is unchanged. Minimal calcific enthesopathy overlying the anterior superior surface of the patella is unchanged. No acute fracture. Preservation of the joint space. No sclerotic or destructive changes observed. SOFT TISSUES: Unremarkable. No soft tissue swelling or gas. No radiopaque foreign body. RAD/Knee 4 or More Views IMPRESSION: No acute findings in the left knee and no change including the metallic arthroplasty in the medial femorotibial compartment when compared to 02/24/2020.. Electronically Signed: Augie Willett MD at 13:22 EST , CC: MODESTA ROMANO; ANA LAURA STONE Applied Psychology Professor: Signed Normal [facility] Echo Complete W/ Contraston 05-09-2022 Echo Complete W/ Contrast [facility] Cardi[facility] Services [address] [place] [address] Echo Complete W/ Contrast 05/09/22 0802 MR#: [id number] Acct: [id number] Name: HALIE HERNANDEZ Rep #: [id number] : 1945 77 From: Brody Barcenas MD Attending Dr: VIC MAY Status: REG CLI Ordering Dr: Danielle Cornejo o. Date: 05/09/22 Location: [facility]S Sex: M C Admitted: Reason For Study: Murmur Procedure This was a 2D Doppler, Color Flow transthoracic echocardiogram. The study was technically difficult. Contrast injection was performed. Exam performed in department. Left Ventricle Normal LV size. Moderate eccentric left ventricular hypertrophy. Left ventricular systolic function is normal. The estimated ejection fraction is 65 %. Stage 1 diastolic dysfunction. No regional wall motion abnormalities noted. Right Ventricle Normal RV size. Normal systolic function. Atria Normal left atrium. Normal right atrium. Mitral Valve Normal mitral valve. Tricuspid Valve Normal tricuspid valve. Mild (1+) tricuspid valve insufficiency. Pulmonary artery systolic pressure is 26 mmHg. Aortic Valve Normal aortic valve. Pulmonic Valve Normal pulmonic valve. Great Vessels Normal aortic root. The pulmonary artery is normal size. Normal inferior vena cava. Pericardium/Pleural No pericardial effusion. Medication 22 gauge I.V. with prn adaptor inserted into right arm. Diluted definity 2.5ml given slow IV push to enhance endocardial definition. MMode/2D Measurements Calculations LVIDd: 5.0 cm IVSd: 1.4 cm Ao root diam: 3.8 cm LVIDs: 2.9 cm LVPWd: 1.2 cm LA dimension: 4.5 cm RVDd: 3.8 cm FS: 42.5 % _ LAV(MOD-bp): 64.3 ml LA A4 area: 18.6 cm2 RA A4 area: 14.2 cm2 LAV(MOD-bp) Indexed: 27.5 ml/m2 LAV(MOD-sp2): 69.5 ml LAV(MOD-sp4): 52.8 ml Time Measurements MV dec time: 0.27 sec Doppler Measurements Calculations MV E max jose: 79.2 cm/sec Lat Peak E' Jose: 8.3 cm/sec Med Peak E' Jose: 8.1 cm/sec MV A max jose: 110.5 cm/sec E/E' lat: 9.6 E/E' med: 9.7 MV E/A: 0.72 _ MV V2 max: 111.2 cm/sec MV P1/2t max jose: 86.7 cm/sec Ao V2 max: 157.7 cm/sec MV max P.9 mmHg MV P1/2t: 84.4 msec Ao max P.0 mmHg MV V2 mean: 54.0 cm/sec MV dec slope: 300.8 cm/sec2 MV mean P.4 mmHg MV V2 VTI: 27.0 cm MVA(P1/2t): 2.6 cm2 _ LV V1 max: 102.9 cm/sec PA V2 max: 102.5 cm/sec TR max jose: 242.9 cm/sec LV V1 max P.2 mmHg TR max P.6 mmHg ECHO/Echo Complete W/ Contrast Interpretation Summary Normal LV size. Left ventricular systolic function is normal. The estimated ejection fraction is 65 %. Stage 1 diastolic dysfunction. Moderate eccentric left ventricular hypertrophy. Contrast injection was performed. _ Ordering Physician: VIC MAY Performed By: Gregg Sesay RCS 05/09/221850 Date Brody Barcenas MD CC: VIC MAY; MODESTA ROMANO Date Dictated: 05/09/22 08 Date Transcribed: 05/09/221850 Applied Psychology Professor: Signed [facility] Vital Signs Date Time Vital Sign Value Performing Clinician Faci lity 01-29-2024 08:36-0400 Body height 177.8 cm Modesta Romano MD Work Phone: [facility] 01-29-2024 08:36-0400 Body mass index (BMI) [Ratio] 35.87 kg/m2 Modesta Romano MD Work Phone: [facility] 01-29-2024 08:36-0400 Body weight 113.4 kg Modesta Romano MD Work Phone: [facility] Encounters Encounter Date Encounter Type Care Provider Facility Start: 08-03-2025 End: 08-03-[address] MODESTA ROMANO MD Facility:A Start: 08-03-2025 End: 08-03-[address] SANCHEZ MD Facility:A Start: 06-11-2025 End: 06-11-[address] MODESTA ROMANO MD Facility:A Start: 06-11-2025 End: 06-11-2025 Patient encounter procedure MYRNA Stephenson MARCY MOTION [employer]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-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 [facility] Start: 06-04-2025 End: 06-04-[address] MODESTA ROMANO MD Facility:A Start: 06-04-2025 End: 06-04-2025 Observation SPIKE MILLER MD [facility] Start: 06-03-2025 End: 06-04-2025 Emergency department patient visit VIC GREENE DO [facility] Start: 06-02-2025 End: 06-02-2025 Emergency department patient visit ANISHA CASTILLO DO [facility] Start: 01-29-2024 End: 01-30-2024 ambulatory MODESTA ROMANO [facility] Start: 01-29-2024 End: 01-29-2024 Subsequent hospital visit by physician Modesta Romano MD Work Phone: [facility] Comment on above: Other forms of dyspn ea; Unspecified atrial fibrillation (HCC) Start: 01-15-2024 End: 04-15-2024 Transcribe Orders Modesta Romano MD Work Phone: [facility] Central Scheduling Comment on above: Other forms of dyspn ea (Primary Dx); Unspecified atrial fibrillation (HCC) Start: 10-17-2022 End: 10-17-2022 ambulatory [facility] Work Phone: Start: 10-17-2022 End: 10-17-[address] [facility] Start: 10-12-2022 End: 12-19-2022 ambulatory GENE THOMAS MD Facility:B Start: 10-12-2022 End: 12-19-2022 Physical therapy management ANDIE MYERS MD [facility] Start: 05-09-2022 ambulatory Brody Barcenas Facility:[facility] Start: 05-09-2022 Non-patient / Non-visit Dr. Qasim Barcenas Work Phone: [facility] Start: 05-09-2022 End: 05-09-2022 ambulatory [facility] Work Phone: Start: 05-09-2022 End: 05-09-[address] Brody Barcenas Work Phone: [facility] Procedures Date Procedure Procedure Detail Performing Clinician Start: 01-29-2024 TTE w or w/o contr, cont ECG Modesta Romano MD Work Phone: Start: 10-17-2022 End: 10-17-2022 Radiologic examination of knee Start: 07-19-2021 Thyrotropin [Units/v olume] in Serum or Plasma Modesta Romano MD Work Phone: Arthroplasty of knee NOREEN VIDAL MOTION PICT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-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 Arthroplasty of knee planned MYRNA VIDAL MOTION PI[employer]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-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 Plan of Treatment Date Care Activity Detail Author Start: 05-24-2024 Influenza vaccination Influenza Vacc ine (#1) [facility] Start: 12-16-2023 COVID-19 Vaccine ( season) COVID-19 Vaccine () [facility] Start: 07-19-2022 Thyroid stimulating hormone measurement TSH Level [facility] Start: 11-12-2021 Medicare Annual Well ness (AWV) Medicare Annual Wellness (AWV) [facility] Start: 2007 RSV Immunization age d 60 or older (1 - 1-dose 60+ series) RSV Immunization aged 60 or older (1 - 1-dose 60+ series) [facility] Start: 1966 DTaP/Tdap/Td Vaccine s (1 - Tdap) DTaP/Tdap/Td Vaccines (1 - Tdap) [facility] Start: 1965 Hepatitis C screening Hepatitis C Sc reening [facility] Start: 1959 Depression Screening Depression Scre ening [facility] Start: 1945 Lipid panel Lipid Panel [facility] Immunizations Immunization Date Immunization Notes Care Provider Fa debbie 06-18-2023 influenza virus vacc ine, unspecified formulation Modesta Romano MD Work Phone: [facility] Payers Date Payer Category Payer Private Health Insurance [id number] 2022 Self-pay [id number] 2016 Unknown [id number] 2016 Unknown [employer]UDOLPH CH[employer] S ANTHEM MEDICARE SUPPLEMENT [id number] 2016-Present [address] [place] [address] Supplement [id number] 2012 Medicare [id number] 2012 Medicare [id number] [facility] [id number] 1945 Unknown [id number]. 2.627 1945 Unknown [id number]. 2.627 1945 Unknown [id number] [id number]. 2.627 1945 Unknown [id number] [id number]. 2.62 1945 Unknown [id number] [id number]. 2.627 1945 Unknown [id number] [id number]. 2.627 1945 Unknown [id number]. 2.627 Unknown [id number]. 2.462 Unknown [id number] [id number]. 2.462 Unknown [id number]. 2.462 Social History Date Type Detail [facility] Work Phone: Start: 1945 Sex Assigned At Male [facility] Start: 12-04-2017 End: 01-29-2024 Alcohol intake Current drinker of alcohol (finding) [facility] Start: 01-29-2024 History of Social function [facility] Start: 01-29-2024 Tobacco use panel [facility] Start: 01-23-2024 Gender identity Identifies as male gender (finding) [facility] Start: 01-23-2024 Sexual orientation Heterosexual (fin ding) [facility] Start: 06-03-2025 Tobacco smoking status Tobacco smoking consumption unknown (finding) [facility] Sexual Orientation [facility] Start: 11-26-2014 Sex Male (finding) [facility] Functional Status Date Assessment Result Facility 10-12-2022 Functional Status Home Living Ad ditional Information OBJECTIVE: BP: 160/80 - pt reports he has BP cuff at home and checks it regularly, 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 Posture: forward head posture Gait: amb with no AD, antalgic gait with visible limp Transfers: NT Sensation: no abnormalities and asymmetries with light touch grossly Reflexes: NT Edema: none, marked deformity of medial arch AROM: DF to neutral bilat PROM: DF to neutral bilat [facility] Clinical Notes 06-02-2025 to 06-04-2025 Note Date & Type Note Facility 06-04-2025 Hospital Discharg e instructions Patient Education 06/04/2025 16:06:24 Indwelling Urinary Catheter Care, Adult Indwelling Urinary Catheter Care, Adult An indwelling urinary catheter is a thin, flexible, germ-free (sterile) tube that is placed into the bladder to help drain urine out of the body. The catheter is inserted into the part of the body that drains urine from the bladder (urethra). Urine drains from the catheter into a drainage bag outside of the body. Taking good care of your catheter will keep it working properly and help to prevent problems from developing. What are the risks? Bacteria may get into your bladder and cause a urinary tract infection. Urine flow can become blocked. This can happen if the catheter is not working correctly, or if you have sediment or a blood clot in your bladder or the catheter. Tissue near the catheter may become irritated and bleed. How to wear your catheter and your drainage bag Supplies needed Adhesive tape or a leg strap. Alcohol wipe or soap and water (if you use tape). A clean towel (if you use tape). Overnight drainage bag. Smaller drainage bag (leg bag). Wearing your catheter and bag Use adhesive tape or a leg strap to attach your catheter to your leg. Make sure the catheter is not pulled tight. If a leg strap gets wet, replace it with a dry one. If you use adhesive tape: 1.Use an alcohol wipe or soap and water to wash off any stickiness on your skin where you had tape before. 2.Use a clean towel to pat-dry the area. 3.Apply the new tape. You should have received a large overnight drainage bag and a smaller leg bag that fits underneath clothing. You may wear the overnight bag at any time, but you should not wear the leg bag at night. Always wear the leg bag below your knee. Make sure the overnight drainage bag is always lower than the level of your bladder, but do not let it touch the floor. Before you go to sleep, hang the bag inside a wastebasket that is covered by a clean plastic bag. How to care for your skin around the catheter Supplies needed A clean washcloth. Water and mild soap. A clean towel. Caring for your skin and catheter Every day, use a clean washcloth and soapy water to clean the skin around your catheter. 1.Wash your hands with soap and water. 2.Wet a washcloth in warm water and mild soap. 3.Clean the skin around your urethra. ?If you are female: ?Use one hand to gently spread the folds of skin around your vagina (labia). ?With the washcloth in your other hand, wipe the inner side of your labia on each side. Do this in a [id number] direction. ?If you are male: ?Use one hand to pull back any skin that covers the end of your penis (foreskin). ?With the washcloth in your other hand, wipe your penis in small circles. Start wiping at the tip of your penis, then move outward from the catheter. ?Move the foreskin back in place, if this applies. 4.With your free hand, hold the catheter close to where it enters your body. Keep holding the catheter during cleaning so it does not get pulled out. 5.Use your other hand to clean the catheter with the washcloth. ?Only wipe downward on the catheter. ?Do not wipe upward toward your body, because that may push bacteria into your urethra and cause infection. 6.Use a clean towel to pat-dry the catheter and the skin around it. Make sure to wipe off all soap. 7.Wash your hands with soap and water. Shower every day. Do not take baths. Do not use cream, ointment, or lotion on the area where the catheter enters your body, unless your health care provider tells you to do that. Do not use powders, sprays, or lotions on your genital area. Check your skin around the catheter every day for signs of infection. Check for: ?Redness, swelling, or pain. ?Fluid or blood. ?Warmth. ?Pus or a bad smell. How to empty the drainage bag Supplies needed Rubbing alcohol. Gauze pad or cotton ball. Adhesive tape or a leg strap. Emptying the bag Empty your drainage bag (your overnight drainage bag or your leg bag) when it is ? full, or at least 2 3 times a day. Clean the drainage bag according to the public health training assistant's instructions or as told by your health care provider. 1.Wash your hands with soap and water. 2.Detach the drainage bag from your leg. 3.Hold the drainage bag over the toilet or a clean container. Make sure the drainage bag is lower than your hips and bladder. This stops urine from going back into the tubing and into your bladder. 4.Open the pour spout at the bottom of the bag. 5.Empty the urine into the toilet or container. Do not let the pour spout touch any surface. This precaution is important to prevent bacteria from getting in the bag and causing infection. 6.Apply rubbing alcohol to a gauze pad or cotton ball. 7.Use the gauze pad or cotton ball to clean the pour spout. 8.Close the pour spout. 9.Attach the bag to your leg with adhesive tape or a leg strap. 10.Wash your hands with soap and water. How to change the drainage bag Supplies needed: Alcohol wipes. A clean drainage bag. Adhesive tape or a leg strap. Changing the bag Replace your drainage bag with a clean bag if it leaks, starts to smell bad, or looks dirty. 1.Wash your hands with soap and water. 2.Detach the dirty drainage bag from your leg. 3.Pinch the catheter with your fingers so that urine does not spill out. 4.Disconnect the catheter tube from the drainage tube at the connection valve. Do not let the tubes touch any surface. 5.Clean the end of the catheter tube with an alcohol wipe. Use a different alcohol wipe to clean the end of the drainage tube. 6.Connect the catheter tube to the drainage tube of the clean bag. 7.Attach the clean bag to your leg with adhesive tape or a leg strap. Avoid attaching the new bag too tightly. 8.Wash your hands with soap and water. General instructions Never pull on your catheter or try to remove it. Pulling can damage your internal tissues. Always wash your hands before and after you handle your catheter or drainage bag. Use a mild, fragrance-free soap. If soap and water are not available, use hand mannequin refinisher. Always make sure there are no twists or bends (kinks) in the catheter tube. Always make sure there are no leaks in the catheter or drainage bag. Drink enough fluid to keep your urine pale yellow. Do not take baths, swim, or use a hot tub. If you are female, wipe from front to back after having a bowel movement. Contact a health care provider if: Your urine is cloudy. Your urine smells unusually bad. Your catheter gets clogged. Your catheter starts to leak. Your bladder feels full. Get help right away if: You have redness, swelling, or pain where the catheter enters your body. You have fluid, blood, pus, or a bad smell coming from the area where the catheter enters your body. The area where the catheter enters your body feels warm to the touch. You have a fever. You have pain in your abdomen, legs, lower back, or bladder. You see blood in the catheter. Your urine is pink or red. You have nausea, vomiting, or chills. Your urine is not draining into the bag. Your catheter gets pulled out. Summary An indwelling urinary catheter is a thin, flexible, germ-free (sterile) tube that is placed into the bladder to help drain urine out of the body. The catheter is inserted into the part of the body that drains urine from the bladder (urethra). Take good care of your catheter to keep it working properly and help prevent problems from developing. Always wash your hands before and after you handle your catheter or drainage bag. Never pull on your catheter or try to remove it. This information is not intended to replace advice given to you by your health care provider. Make sure you discuss any questions you have with your health care provider. Document Released: 09/09/2006 Document Revised: 01/01/2020 Document Reviewed: 04/25/2018 [employer] Patient Education 2020 [employer]. Follow Up Care 06/03/2025 23:19:52 With:MYRNA VIDAL, [facility] [employer] [facility], Urology Service Address: [address] [place] [address] [place] [address]- [phone] When:06/11/2025 08:20:00 Comments:FOLLOW UP [facility] 06-04-2025 Discharge summary Date of Service 06/04/25 Discharge Diagnosis Gross hematuria due to BPH with Walton catheter trauma and rapid decompression Urinary retention due to BPH Atrial fibrillation on anticoagulation (Eliquis, held) Mild normocytic anemia secondary to hematuria Type 2 diabetes mellitus with hyperglycemia (A1c 7.9%) Hypertension, chronic/stable Hyperlipidemia, chronic/stable Hypothyroidism, chronic/stable Obesity (BMI 35.9) Hospital Course 80-year-old male with history of HTN, HLD, hypothyroidism, atrial fibrillation on apixaban, and T2DM presented initially on 06/02/25 with acute urinary retention and underwent Walton catheter placement, draining 700 cc. He returned with gross hematuria and clot retention. At outside ED, multiple irrigation attempts were unsuccessful and the Walton was exchanged; he was transferred for urologic evaluation. On arrival, CT abdomen/pelvis showed marked prostatomegaly, Walton tip abutting bladder dome, mild bladder wall thickening, and mild bilateral perinephric stranding with intravesical air. No clot retention or hydronephrosis. UA positive for blood but negative for nitrites/leukocyte esterase; afebrile with WBC normal. CBC showed Hgb 12.5, mild drop from baseline, no transfusion required. Creatinine stable (0.91). Urology evaluated and determined hematuria most likely from rapid decompression in the setting of enlarged prostate and anticoagulation. Catheter irrigated; urine cleared to light pink without clots. Eliquis was held. Started on tamsulosin and finasteride for BPH. Catheter draining tea-colored urine at discharge, patent on irrigation. Patient stable from a urologic standpoint and cleared for discharge with Walton catheter in place until outpatient follow-up. Pertinent Results CT A/P: marked prostatomegaly, Walton tip tenting bladder dome, no clot retention CBC (06/04): WBC 6.8, Hgb 12.5, Plt 175 BMP (06/04): Na 140, K 4.4, BUN 16, Cr 0.91 HgbA1c 7.9% (eAG 180 mg/dL) Lipids: LDL 108, HDL 44, TG 142 Follow-Up Urology (Dr. Diaz, [facility], ) within 5 7 days for catheter management and BPH evaluation Primary care/cardiology within 1 week to reassess anticoagulation timing and chronic disease management Bring AVS and catheter supplies to follow-up Allergies NKA Procedures Walton catheter placement and hand irrigation Consults Consult to Physician - Ordered -- 06/04/25 1:54:00 EDT, LANE SANCHEZ MD, Routine, gross hematuria Subjective Patient resting comfortably in bed. at bedside. Discussion in regards to patient's diabetes, diabetic management, Walton with prostatomegaly. Physical Exam Vitals and Measurements T: 36.6 C (Oral) TMIN: 36.6 C (Oral) TMAX: 36.8 C (Oral) HR: 81 RR: 18 BP: 163/77 SpO2: 92% HT: 177.8 cm WT: 113.6 kg BMI: 35.93 Weight Dosing Weight: 113.6 kg (06/04/25) General Appearance: Appears to be stable and in no acute distress. Cardiac: S1 and S2 normal. RRR. No murmurs, rubs, or gallops. No JVD. No hepatojugular reflex. Lungs: Clear to auscultation bilaterally. No increased work for breathing. No wheezes, rhonchi, or rales. Abdomen: Soft, nontender, nondistended. Normoactive bowel sounds. No rebound or guarding. Musculoskeletal: Full range of motion upper and lower extremities. Extremities: No lower extremity pitting edema. 2+ pedal pulses bilaterally. Neurological: No focal neurological deficits. Skin: No abrasions, scars, or hematomas on visible skin. Psychiatric: Alert and oriented, well groomed, euthymic, cooperative. Code Status Code Status - Ordered -- 06/04/25 1:50:00 EDT, Full Code, Constant Order Admission Date 06/04/25 Discharge Date 06/04/25 Patient Instructions Reason for hospital stay You had trouble emptying your bladder from an enlarged prostate (BPH) and needed a Walton catheter. After placement, your urine turned bloody and small clots formed. Your catheter is now draining tea-colored urine without clots. You will go home with the catheter in place until your urology follow-up What we did in the hospital Placed/adjusted a 3-way Walton catheter and hand-irrigated until the urine was light pink without clots. Held your blood thinner (Eliquis) so bleeding could stop. Started prostate medicines to improve urine flow. Medicines to take at home Tamsulosin 0.4 mg by mouth every night. Take the first dose at bedtime; it can cause dizziness on standing. Rise slowly; hold if you pass out, fall, or have severe dizziness. Finasteride 5 mg by mouth once daily. This works slowly (weeks to months). Do not crush; women who are or may be should not handle broken tablets. Pain: acetaminophen up to 3,000 mg/day total (for example, 500 1,000 mg every 6 8 hours as needed). Avoid ibuprofen, naproxen, aspirin unless your doctor specifically tells you to use them. Eliquis (apixaban): remain off this medication for at least 3 days to allow bleeding to stop, and do not restart until the urine has been clear or pale yellow for 24 hours and your doctor says it is safe. Call urology or your primary/cardiology team before restarting if any blood persists or you are unsure. Metformin (only if you normally take it): hold for [address] with contrast and until your kidney function is confirmed stable; your CT was on 06/03/2025 late evening, so do not take metformin until after 06/05/2025 unless your doctor advises otherwise. Walton catheter: daily care at home Keep the catheter secured to your thigh (leg strap or StatLock) to prevent tugging. Keep the drainage bag below the level of your bladder at all times; avoid kinks and loops in the tubing. Empty the bag when it is full or at least every 8 hours. Wash hands before and after; do not let the outlet touch anything. Clean the urethral opening and catheter where it enters the body once daily with mild soap and water; pat dry. No ointments or powders unless prescribed. You may shower; do not take baths, swim, or submerge the catheter or bag. Use the small leg bag during the day and the larger night bag for sleep. Keep the night bag on a stand lower than your bladder. What urine color to expect Light pink to tea-colored urine is common the first few days, especially after walking or bowel movements. It should gradually become yellow/pale yellow. Small, pepper-like debris can appear; this is usually normal. Bright-red urine, thick ketchup-like urine, or clots are not normal at home see When to call below. Hand irrigation (only if your discharge paperwork says you are to do this or you were taught how) If your urine stops flowing or you feel bladder pressure/pain and you were instructed to irrigate: Wash hands. Use a sterile 60-mL catheter-tip syringe and sterile normal saline. Disconnect the catheter from the bag without pulling on the catheter. Gently instill 30 60 mL of saline, then pull back on the syringe to remove fluid and any small clots. Repeat until urine is light pink and flowing, or until a total of ~300 mL saline has been used. Stop immediately if you meet strong resistance or pain, if you cannot withdraw fluid, or if you see large clots reconnect the bag and call urology/seek care. If you were not instructed or don t feel comfortable irrigating: do not attempt; call urology or go to the ED if no drainage for 2 hours with bladder discomfort. Activity, fluids, and bowel habits Activity: light walking is encouraged; avoid heavy lifting/straining and vigorous exercise for 48 72 hours. Fluids: unless another doctor told you to restrict fluids, aim for ~2 liters (8 cups) of water/decaf fluids per day. More fluids can help keep urine clear. Bowel movements: avoid straining. Use stool softeners (e.g., docusate 100 mg twice daily) and/or polyethylene glycol (Miralax 17 g daily) as needed. High-fiber diet. Avoid decongestants with pseudoephedrine/phenylephrine and strong anticholinergic medicines (e.g., diphenhydramine) unless approved by your doctor they can worsen urinary retention. Diabetes instructions Check blood sugars as you usually do. In the hospital your sugars ran ~170 190 mg/dL; outpatient goal is individualized, commonly 80 180 mg/dL. If you use insulin, continue as directed. Carry quick sugar (glucose tablets/juice). Call your primary human services care specialist if fasting sugars are persistently >180 mg/dL or <70 mg/dL, or if you have vomiting and cannot keep fluids down. When to call the urology office (business hours) Catheter stops draining for 2 hours and you feel bladder pressure/pain. Urine turns bright red, you pass clots, or bleeding increases after it had been improving. Fever =100.4 F (38.0 C), chills, new burning with urination around the catheter, or foul-smelling/cloudy urine. Worsening abdominal or suprapubic pain. Severe dizziness or fainting after starting tamsulosin. When to go to the emergency department now No urine output for 4 hours with increasing lower-abdominal pain/pressure and you cannot flush or were not taught to flush. Passing large clots or thick red urine that does not lighten with rest and hydration. Signs of significant blood loss: lightheadedness, fainting, rapid heartbeat, cold/clammy skin. Chest pain, shortness of breath, stroke symptoms (facial droop, arm weakness, speech trouble). Follow-up and who to call Urology follow-up: keep your appointment with [facility] (Dr. Diaz). If you do not have the date/time, call [phone] to schedule within 5 7 days. Bring this paperwork and your catheter supplies. Primary care/cardiology: call within 1 week to discuss when to safely restart Eliquis and to coordinate diabetes and blood pressure management. If you restart Eliquis and notice any return of blood in the urine, stop it and call urology/primary care immediately unless you were told otherwise. Supplies to have at home Extra leg bag and night bag, leg strap/StatLock, alcohol pads, clean container for emptying, mild soap, spare securement device, and (if instructed) sterile normal saline with 60-mL catheter-tip syringe for irrigation. Bring to your urology visit Medication list, log of urine color/output and any clots, any questions about catheter removal and trial of void. [place] Prevention (all stone types) Fluids: Goal urine =2.5 L/day ? usually 2.5 3 L intake daily. Diet: Sodium =2.3 g/day (100 mEq). Calcium: 1,000 1,200 mg/day with meals (avoid restriction). Moderate animal protein (0.8 1.0 g/kg/day). Limit sugar-sweetened beverages, excess oxalate foods (spinach, nuts, rhubarb, bran). Encourage fruits/vegetables, especially citrus (citrate source). Lifestyle: Weight management, physical activity, avoid high-dose vitamin C (>1 g/day). When to Order Metabolic Workup Indications: Recurrent stones, solitary kidney, CKD, uric acid/struvite/cystine stones, family history, early onset. Tests: Serum: BMP, calcium, uric acid (add PTH if hypercalcemia). 24-h urine ( 2): volume, pH, calcium, oxalate, citrate, uric acid, sodium, creatinine. Follow-up: Recheck 24-h urine at 6 months after intervention, then annually. Targeted Therapies Calcium oxalate / phosphate stones Hypercalciuria -> low-salt diet thiazide diuretic (chlorthalidone 12.5 25 mg, indapamide 1.25 2.5 mg). Monitor Na/K/Cr. Hypocitraturia -> potassium citrate 20 30 mEq BID; goal citrate =640 mg/day, urine pH =6.8 if CaP risk. Hyperoxaluria -> limit high-oxalate foods; give calcium citrate 500 1,000 mg with meals; low-fat diet if enteric. Hyperuricosuria with CaOx -> allopurinol 100 300 mg/day; goal urine uric acid <600 mg/day. Uric acid stones Mainstay: urinary alkalinization (K citrate 20 40 mEq BID/TID; target pH 6.5 7). If persistent hyperuricosuria ? add allopurinol. Cystine stones Fluids >3 L urine/day; sodium/protein restriction. Urine alkalinization to pH 7 7.5. If refractory ? tiopronin 800 1200 mg/day in divided doses. Struvite stones Requires complete stone clearance + infection eradication. If persistent infection/stone burden ? consider acetohydroxamic acid (AHA). Monitoring & Safety Potassium citrate: monitor K/HCO3 (caution with ARB, CKD). Thiazides: check electrolytes, glucose, uric acid; combine with low-salt diet. Allopurinol: monitor CBC/LFTs; watch for drug interactions. NSAIDs: avoid long-term due to kidney risk. Ron Takeaway: Hydration + diet are the backbone for everyone. Stone analysis + 24-h urine guide personalized therapy. Medications (citrate, thiazide, allopurinol) reserved for specific abnormalities. Follow-up every 6 12 months with urine studies and labs. Medications New Prescription finasteride (finasteride 5 mg oral tablet)1 tab(s) by mouth once a day for 30 Days. Refills: 0. tamsulosin (Flomax 0.4 mg oral capsule)1 cap by mouth once a day after a meal for 30 Days. Refills: 0. Unchanged amLODIPine (amLODIPine 2.5 mg oral tablet)1 tab(s) by mouth once a day. levothyroxine (levothyroxine 150 mcg (0.15 mg) oral tablet)1 tab(s) by mouth once a day before a meal. lisinopril (lisinopril 30 mg oral tablet)1 tab(s) by mouth every day. metFORMIN (MetFORMIN (Eqv-Fortamet) 500 mg oral tablet, EXTENDED RELEASE)1 tab(s) by mouth four (4) times a day. Okay to substitute for generic Glucophage XR. metoprolol (metoprolol tartrate 25 mg oral tablet)0.5 tab(s) by mouth once a day. pravastatin (pravastatin 20 mg oral tablet)20 Milligram by mouth every other day. Discontinued apixaban (Eliquis 5 mg oral tablet)1 tab(s) by mouth two (2) times a day. Follow Up Follow Up with MYRNA VIDAL, [facility], Urology Service When:06/11/2025 08:20 AM EDT Where:[address] [address]- [phone] Additional Information: FOLLOW UP Discharge Diet Discharge Diet - Ordered -- Diet Restrictions: No added sugar, No changes were made to your diet during your hospital stay. Please resume your pre hospitalization diet on discharge., 06/04/25 15:07:00 EDT Discharge Activity Discharge Activity - Ordered -- Activity As Tolerated, 06/04/25 15:07:00 EDT Condition on Discharge Fair. Stable. Discharge Disposition Home. Information Provided To . Time Spent Greater than 35 minutes were spent [id number] with the patient +/- family during this encounter and >50% was spent on counseling and coordination of care. Digitally Signed by CHRISTINA PETERSEN MD on 06/04/2025 05:34 PM [facility] 06-04-2025 Note Discharge Instructions Thank you for allowing [facility] to assist you with your healthcare needs. The following is important discharge information regarding your hospital visit. Your Care Team MODESTA ROMANO MD What to do next Instructions From Your Doctor Reason for hospital stay You had trouble emptying your bladder from an enlarged prostate (BPH) and needed a Walton catheter. After placement, your urine turned bloody and small clots formed. Your catheter is now draining tea-colored urine without clots. You will go home with the catheter in place until your urology follow-up What we did in the hospital Placed/adjusted a 3-way Walton catheter and hand-irrigated until the urine was light pink without clots. Held your blood thinner (Eliquis) so bleeding could stop. Started prostate medicines to improve urine flow. Medicines to take at home Tamsulosin 0.4 mg by mouth every night. Take the first dose at bedtime; it can cause dizziness on standing. Rise slowly; hold if you pass out, fall, or have severe dizziness. Finasteride 5 mg by mouth once daily. This works slowly (weeks to months). Do not crush; women who are or may be should not handle broken tablets. Pain: acetaminophen up to 3,000 mg/day total (for example, 500 1,000 mg every 6 8 hours as needed). Avoid ibuprofen, naproxen, aspirin unless your doctor specifically tells you to use them. Eliquis (apixaban): remain off this medication for at least 3 days to allow bleeding to stop, and do not restart until the urine has been clear or pale yellow for 24 hours and your doctor says it is safe. Call urology or your primary/cardiology team before restarting if any blood persists or you are unsure. Metformin (only if you normally take it): hold for [address] with contrast and until your kidney function is confirmed stable; your CT was on 06/03/2025 late evening, so do not take metformin until after 06/05/2025 unless your doctor advises otherwise. Walton catheter: daily care at home Keep the catheter secured to your thigh (leg strap or StatLock) to prevent tugging. Keep the drainage bag below the level of your bladder at all times; avoid kinks and loops in the tubing. Empty the bag when it is full or at least every 8 hours. Wash hands before and after; do not let the outlet touch anything. Clean the urethral opening and catheter where it enters the body once daily with mild soap and water; pat dry. No ointments or powders unless prescribed. You may shower; do not take baths, swim, or submerge the catheter or bag. Use the small leg bag during the day and the larger night bag for sleep. Keep the night bag on a stand lower than your bladder. What urine color to expect Light pink to tea-colored urine is common the first few days, especially after walking or bowel movements. It should gradually become yellow/pale yellow. Small, pepper-like debris can appear; this is usually normal. Bright-red urine, thick ketchup-like urine, or clots are not normal at home see When to call below. Hand irrigation (only if your discharge paperwork says you are to do this or you were taught how) If your urine stops flowing or you feel bladder pressure/pain and you were instructed to irrigate: Wash hands. Use a sterile 60-mL catheter-tip syringe and sterile normal saline. Disconnect the catheter from the bag without pulling on the catheter. Gently instill 30 60 mL of saline, then pull back on the syringe to remove fluid and any small clots. Repeat until urine is light pink and flowing, or until a total of ~300 mL saline has been used. Stop immediately if you meet strong resistance or pain, if you cannot withdraw fluid, or if you see large clots reconnect the bag and call urology/seek care. If you were not instructed or don t feel comfortable irrigating: do not attempt; call urology or go to the ED if no drainage for 2 hours with bladder discomfort. Activity, fluids, and bowel habits Activity: light walking is encouraged; avoid heavy lifting/straining and vigorous exercise for 48 72 hours. Fluids: unless another doctor told you to restrict fluids, aim for ~2 liters (8 cups) of water/decaf fluids per day. More fluids can help keep urine clear. Bowel movements: avoid straining. Use stool softeners (e.g., docusate 100 mg twice daily) and/or polyethylene glycol (Miralax 17 g daily) as needed. High-fiber diet. Avoid decongestants with pseudoephedrine/phenylephrine and strong anticholinergic medicines (e.g., diphenhydramine) unless approved by your doctor they can worsen urinary retention. Diabetes instructions Check blood sugars as you usually do. In the hospital your sugars ran ~170 190 mg/dL; outpatient goal is individualized, commonly 80 180 mg/dL. If you use insulin, continue as directed. Carry quick sugar (glucose tablets/juice). Call your primary human services care specialist if fasting sugars are persistently >180 mg/dL or <70 mg/dL, or if you have vomiting and cannot keep fluids down. When to call the urology office (business hours) Catheter stops draining for 2 hours and you feel bladder pressure/pain. Urine turns bright red, you pass clots, or bleeding increases after it had been improving. Fever =100.4 F (38.0 C), chills, new burning with urination around the catheter, or foul-smelling/cloudy urine. Worsening abdominal or suprapubic pain. Severe dizziness or fainting after starting tamsulosin. When to go to the emergency department now No urine output for 4 hours with increasing lower-abdominal pain/pressure and you cannot flush or were not taught to flush. Passing large clots or thick red urine that does not lighten with rest and hydration. Signs of significant blood loss: lightheadedness, fainting, rapid heartbeat, cold/clammy skin. Chest pain, shortness of breath, stroke symptoms (facial droop, arm weakness, speech trouble). Follow-up and who to call Urology follow-up: keep your appointment with [facility] (Dr. Diaz). If you do not have the date/time, call [phone] to schedule within 5 7 days. Bring this paperwork and your catheter supplies. Primary care/cardiology: call within 1 week to discuss when to safely restart Eliquis and to coordinate diabetes and blood pressure management. If you restart Eliquis and notice any return of blood in the urine, stop it and call urology/primary care immediately unless you were told otherwise. Supplies to have at home Extra leg bag and night bag, leg strap/StatLock, alcohol pads, clean container for emptying, mild soap, spare securement device, and (if instructed) sterile normal saline with 60-mL catheter-tip syringe for irrigation. Bring to your urology visit Medication list, log of urine color/output and any clots, any questions about catheter removal and trial of void. [place] Prevention (all stone types) Fluids: Goal urine =2.5 L/day ? usually 2.5 3 L intake daily. Diet: Sodium =2.3 g/day (100 mEq). Calcium: 1,000 1,200 mg/day with meals (avoid restriction). Moderate animal protein (0.8 1.0 g/kg/day). Limit sugar-sweetened beverages, excess oxalate foods (spinach, nuts, rhubarb, bran). Encourage fruits/vegetables, especially citrus (citrate source). Lifestyle: Weight management, physical activity, avoid high-dose vitamin C (>1 g/day). When to Order Metabolic Workup Indications: Recurrent stones, solitary kidney, CKD, uric acid/struvite/cystine stones, family history, early onset. Tests: Serum: BMP, calcium, uric acid (add PTH if hypercalcemia). 24-h urine ( 2): volume, pH, calcium, oxalate, citrate, uric acid, sodium, creatinine. Follow-up: Recheck 24-h urine at 6 months after intervention, then annually. Targeted Therapies Calcium oxalate / phosphate stones Hypercalciuria -> low-salt diet thiazide diuretic (chlorthalidone 12.5 25 mg, indapamide 1.25 2.5 mg). Monitor Na/K/Cr. Hypocitraturia -> potassium citrate 20 30 mEq BID; goal citrate =640 mg/day, urine pH =6.8 if CaP risk. Hyperoxaluria -> limit high-oxalate foods; give calcium citrate 500 1,000 mg with meals; low-fat diet if enteric. Hyperuricosuria with CaOx -> allopurinol 100 300 mg/day; goal urine uric acid <600 mg/day. Uric acid stones Mainstay: urinary alkalinization (K citrate 20 40 mEq BID/TID; target pH 6.5 7). If persistent hyperuricosuria ? add allopurinol. Cystine stones Fluids >3 L urine/day; sodium/protein restriction. Urine alkalinization to pH 7 7.5. If refractory ? tiopronin 800 1200 mg/day in divided doses. Struvite stones Requires complete stone clearance + infection eradication. If persistent infection/stone burden ? consider acetohydroxamic acid (AHA). Monitoring & Safety Potassium citrate: monitor K/HCO3 (caution with ARB, CKD). Thiazides: check electrolytes, glucose, uric acid; combine with low-salt diet. Allopurinol: monitor CBC/LFTs; watch for drug interactions. NSAIDs: avoid long-term due to kidney risk. Ron Takeaway: Hydration + diet are the backbone for everyone. Stone analysis + 24-h urine guide personalized therapy. Medications (citrate, thiazide, allopurinol) reserved for specific abnormalities. Follow-up every 6 12 months with urine studies and labs. 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 06/11/2025 08:20 AM EDT MYRNA VIDAL [facility] Confirmed Follow Up Appointments Follow Up with MYRNA VIDAL, [facility], Urology Service When:06/11/2025 08:20 AM EDT Where:[address] [facility] [address] [facility] [place] [address]- [phone] Additional Information: FOLLOW UP The Following Activity and Diet Have Been Ordered for You Discharge Activity - Ordered -- Activity As Tolerated, 06/04/25 15:07:00 EDT Discharge Diet - Ordered -- Diet Restrictions: No added sugar, No changes were made to your diet during your hospital stay. Please resume your pre hospitalization diet on discharge., 06/04/25 15:07:00 EDT The Following Equipment Has Been Ordered for You No qualifying data available. The Following Treatments Have Been Ordered for You Discharge Labs No qualifying data available. Discharge Radiology No qualifying data available. Other Therapies No qualifying data available. Post Acute Orders No qualifying data available. Someone Will Contact You Regarding These Home Health Referrals No home referrals have been ordered for you. No one will call you. Allergies NKA Medications Please ask your primary doctor or pharmacist before taking any other medication not listed, including over the counter drugs, herbal medications, vitamins and or supplements as they may interact with your home medications. What How Much When Instructions Last Dose New finasteride (finasteride 5 mg oral tablet) 1 tab(s) by mouth Once a day Duration: 30 Days Pickup at [facility] [address] New tamsulosin (Flomax 0.4 mg oral capsule) 1 cap by mouth Once a day after a meal Duration: 30 Days Pickup at [place] [id number] Unchanged amLODIPine (amLODIPine 2.5 mg oral tablet) 1 tab(s) by mouth Once a day Unchanged levothyroxine (levothyroxine 150 mcg (0.15 mg) oral tablet) 1 tab(s) by mouth Once a day before a meal Unchanged lisinopril (lisinopril 30 mg oral tablet) 1 tab(s) by mouth Every day Unchanged metFORMIN (MetFORMIN (Eqv-Fortamet) 500 mg oral tablet, EXTENDED RELEASE) 1 tab(s) by mouth Four (4) times a day Okay to substitute for generic Glucophage XR Unchanged metoprolol (metoprolol tartrate 25 mg oral tablet) 0.5 tab(s) by mouth Once a day Unchanged pravastatin (pravastatin 20 mg oral tablet) 20 Milligram by mouth Every other day Pharmacy Information [facility] [address]: [address] [place] [id number] [phone] What How Much When Comments Stop Taking apixaban (Eliquis 5 mg oral tablet) 1 tab(s) by mouth Two (2) times a day Please take this list to your next doctor s visit. Bring all medications you take, including over the counter medications, herbals and other supplements with you to your doctor s visit. Patients and families are reminded to discard old lists and to update any records with all medication providers or retail pharmacies. Medication Leaflets finasteride (fin ter she) Propecia, Proscar What is the most important information I should know about finasteride? Finasteride should never be taken by a woman or a child. What is finasteride? Finasteride is used alone or with other medication to treat symptoms of benign prostatic hyperplasia (BPH) in men with enlarged prostate. Finasteride is also used to treat male pattern hair loss in men. This medicine is for use in men only. Finasteride may also be used for purposes not listed in this medication guide. What should I discuss with my healthcare provider before taking finasteride? You should not use finasteride if you are allergic to it. Using finasteride may increase your risk of developing a serious form of prostate cancer. Ask your doctor about this risk. Tell your doctor if you have ever had: prostate cancer; or liver disease or abnormal liver function tests. This medicine should never be taken by a woman or a child. Finasteride can cause defects if a woman is exposed to it during . A broken finasteride tablet should not be handled by a woman who is or may become . The medicine from a broken tablet could be absorbed through the skin. If a woman accidentally comes into contact with a broken or crushed tablet, wash the area with soap and water right away. How should I take finasteride? Your doctor will perform tests to make sure finasteride is the right treatment for you. Follow all directions on your prescription label and read all medication guides or instruction sheets. Use the medicine exactly as directed. Take with a full glass of water at the same time each day, with or without food. You may not fully benefit from this medicine for up to 3 months or longer. Use finasteride regularly for the best results. Your doctor will need to check your progress on a regular basis. You will need frequent prostate specific antigen (PSA) tests to check for prostate cancer. Tell your doctor if you stop taking finasteride on a regular basis because this could affect your PSA test results. Store this medicine at room temperature, away from moisture, heat, and light. Keep the tablets in the original container, tightly closed when not in use. What happens if I miss a dose? Skip the missed dose and use your next dose at the regular time. Do not use two doses at one time. What happens if I overdose? Seek emergency medical attention or call the Poison Help line at . What should I avoid while taking finasteride? Do not share this medicine with another person, even if they have the same symptoms you have. What are the possible side effects of finasteride? Get emergency medical help if you have signs of an allergic reaction: hives; difficulty breathing; swelling of your face, lips, tongue, or throat. Call your doctor at once if you notice any signs of male breast cancer, such as: breast pain or lumps; nipple discharge; or any other breast changes. Tell your doctor right away if you have: blood in your semen; pain in your testicles; or depression. It may be harder for you to get a woman while you are using finasteride. Common side effects may include: decreased interest in sex; trouble getting or keeping an erection; trouble having an orgasm; abnormal ejaculation; or breast swelling or tenderness. The sexual side effects of finasteride may continue after you stop taking this medicine. Talk to your doctor if you have concerns about these side effects. This is not a complete list of side effects and others may occur. Call your doctor for medical advice about side effects. You may report side effects to FDA at 6-974-IYT-6898. What other drugs will affect finasteride? Other drugs may affect finasteride, including prescription and wpow-tjq-[id number] medicines, vitamins, and herbal products. Tell your doctor about all other medicines you use. Where can I get more information? Your pharmacist can provide more information about finasteride. Remember, keep this and all other medicines out of the reach of children, never share your medicines with others, and use this medication only for the indication prescribed. Every effort has been made to ensure that the information provided by [employer] is accurate, up-to-date, and complete, but no guarantee is made to that effect. Drug information contained herein may be time sensitive. [employer] information has been compiled for use by healthcare practitioners and consumers in the [place] and therefore [employer] does not warrant that uses outside of the [place] are appropriate, unless specifically indicated otherwise. [employer] drug information does not endorse drugs, diagnose patients or recommend therapy. [employer] drug information is an informational resource designed to assist licensed healthcare practitioners in caring for their patients and/or to serve consumers viewing this service as a supplement to, and not a substitute for, the expertise, skill, knowledge and judgment of healthcare practitioners. The absence of a warning for a given drug or drug combination in no way should be construed to indicate that the drug or drug combination is safe, effective or appropriate for any given patient. [facility] does not assume any responsibility for any aspect of healthcare administered with the aid of information [facility] provides. The information contained herein is not intended to cover all possible uses, directions, precautions, warnings, drug interactions, allergic reactions, or adverse effects. If you have questions about the drugs you are taking, check with your doctor, nurse or pharmacist. Copyright 2235-9236 [employer]. Version: 06.23. Revision Date: 06/02/2021. tamsulosin (coronado boone FIOR sin) Flomax What is the most important information I should know about tamsulosin? Use only as directed. Tell your doctor if you use other medicines or have other medical conditions or allergies. What is tamsulosin? Tamsulosin is used to treat symptoms of benign prostatic hyperplasia (enlarged prostate). Tamsulosin is not approved for use in women or children. Tamsulosin may also be used for purposes not listed in this medication guide. What should I discuss with my healthcare provider before taking tamsulosin? You should not use tamsulosin if you are allergic to it. Tell your doctor if you have ever had: prostate cancer; low blood pressure; an allergy to sulfa drugs; or liver or kidney disease. Tamsulosin can affect your pupils. If you have cataract surgery, tell the surgeon you use this medicine. Ask your doctor about prostate cancer screening before and while taking tamsulosin. Tamsulosin is not approved for use in women. How should I take tamsulosin? Follow all directions on your prescription label and read all medication guides or instruction sheets. Use the medicine exactly as directed. Tamsulosin is usually taken once a day, within 30 minutes after the same meal each day. Swallow the capsule whole and do not crush, chew, break, or open it. Your blood pressure will need to be checked often. If you stop using this medicine, do not start it again without your doctor's advice. Store tightly closed at room temperature, away from moisture and heat. What happens if I miss a dose? Take the medicine as soon as you can, but skip the missed dose if it is almost time for your next dose. Do not take two doses at one time. If you stop using this medicine for several days in a row, do not start it again without your doctor's advice. What happens if I overdose? Seek emergency medical attention or call the Poison Help line at . What should I avoid while taking tamsulosin? Avoid driving or hazardous activity until you know how this medicine will affect you. Your reactions could be impaired. Avoid getting up too fast from a sitting or lying position, or you may feel dizzy. What are the possible side effects of tamsulosin? Get emergency medical help if you have signs of an allergic reaction (hives, difficult breathing, swelling in your face or throat) or a severe skin reaction (fever, sore throat, burning eyes, skin pain, red or purple skin rash with blistering and peeling). Tamsulosin may lower your blood pressure and may cause dizziness or fainting, especially when you first start taking it or your dose changes. Stop using tamsulosin and call your doctor at once if you have: a light-headed feeling, like you might pass out; or a painful erection that lasts 4 hours or longer. Common side effects may include: abnormal ejaculation, decreased amount of semen; dizziness, drowsiness, weakness; runny or stuffy nose, sore throat, cough; back pain, chest pain, headache; nausea, diarrhea; tooth problems; blurred vision; sleep problems (insomnia); or decreased interest in sex. This is not a complete list of side effects and others may occur. Call your doctor for medical advice about side effects. You may report side effects to FDA at 6-585-PNQ-8735. What other drugs will affect tamsulosin? Sometimes it is not safe to use certain medicines at the same time. Some drugs can affect your blood levels of other drugs you use, which may increase side effects or make the medicines less effective. Tell your doctor about all your current medicines. Many drugs can affect tamsulosin, especially: cimetidine; medicine to treat impotence or pulmonary arterial hypertension--avanafil (Stendra), sildenafil (Viagra, Revatio), tadalafil (Adcirca, Cialis), or vardenafil (Levitra, Staxyn); or drugs to treat high blood pressure or a prostate disorder--alfuzosin, doxazosin, prazosin, terazosin, silodosin. This list is not complete and many other drugs may affect tamsulosin. This includes prescription and amga-bxb-kjpacdh medicines, vitamins, and herbal products. Not all possible drug interactions are listed here. Where can I get more information? Your doctor or pharmacist can provide more information about tamsulosin. Remember, keep this and all other medicines out of the reach of children, never share your medicines with others, and use this medication only for the indication prescribed. Every effort has been made to ensure that the information provided by [employer] is accurate, up-to-date, and complete, but no guarantee is made to that effect. Drug information contained herein may be time sensitive. [employer] information has been compiled for use by healthcare practitioners and consumers in the [place] and therefore [employer] does not warrant that uses outside of the [place] are appropriate, unless specifically indicated otherwise. [employer] drug information does not endorse drugs, diagnose patients or recommend therapy. [employer] drug information is an informational resource designed to assist licensed healthcare practitioners in caring for their patients and/or to serve consumers viewing this service as a supplement to, and not a substitute for, the expertise, skill, knowledge and judgment of healthcare practitioners. The absence of a warning for a given drug or drug combination in no way should be construed to indicate that the drug or drug combination is safe, effective or appropriate for any given patient. [employer] does not assume any responsibility for any aspect of healthcare administered with the aid of information [employer] provides. The information contained herein is not intended to cover all possible uses, directions, precautions, warnings, drug interactions, allergic reactions, or adverse effects. If you have questions about the drugs you are taking, check with your doctor, nurse or pharmacist. Copyright 2628-6481 [employer]. Version: 07.24. Revision Date: 12/14/2022. Education Materials Indwelling Urinary Catheter Care, Adult An indwelling urinary catheter is a thin, flexible, germ-free (sterile) tube that is placed into the bladder to help drain urine out of the body. The catheter is inserted into the part of the body that drains urine from the bladder (urethra). Urine drains from the catheter into a drainage bag outside of the body. Taking good care of your catheter will keep it working properly and help to prevent problems from developing. What are the risks? Bacteria may get into your bladder and cause a urinary tract infection. Urine flow can become blocked. This can happen if the catheter is not working correctly, or if you have sediment or a blood clot in your bladder or the catheter. Tissue near the catheter may become irritated and bleed. How to wear your catheter and your drainage bag Supplies needed Adhesive tape or a leg strap. Alcohol wipe or soap and water (if you use tape). A clean towel (if you use tape). Overnight drainage bag. Smaller drainage bag (leg bag). Wearing your catheter and bag Use adhesive tape or a leg strap to attach your catheter to your leg. Make sure the catheter is not pulled tight. If a leg strap gets wet, replace it with a dry one. If you use adhesive tape: 1. Use an alcohol wipe or soap and water to wash off any stickiness on your skin where you had tape before. 2. Use a clean towel to pat-dry the area. 3. Apply the new tape. You should have received a large overnight drainage bag and a smaller leg bag that fits underneath clothing. You may wear the overnight bag at any time, but you should not wear the leg bag at night. Always wear the leg bag below your knee. Make sure the overnight drainage bag is always lower than the level of your bladder, but do not let it touch the floor. Before you go to sleep, hang the bag inside a wastebasket that is covered by a clean plastic bag. How to care for your skin around the catheter Supplies needed A clean washcloth. Water and mild soap. A clean towel. Caring for your skin and catheter Every day, use a clean washcloth and soapy water to clean the skin around your catheter. 1. Wash your hands with soap and water. 2. Wet a washcloth in warm water and mild soap. 3. Clean the skin around your urethra. ? If you are female: ? Use one hand to gently spread the folds of skin around your vagina (labia). ? With the washcloth in your other hand, wipe the inner side of your labia on each side. Do this in a [id number] direction. ? If you are male: ? Use one hand to pull back any skin that covers the end of your penis (foreskin). ? With the washcloth in your other hand, wipe your penis in small circles. Start wiping at the tip of your penis, then move outward from the catheter. ? Move the foreskin back in place, if this applies. 4. With your free hand, hold the catheter close to where it enters your body. Keep holding the catheter during cleaning so it does not get pulled out. 5. Use your other hand to clean the catheter with the washcloth. ? Only wipe downward on the catheter. ? Do not wipe upward toward your body, because that may push bacteria into your urethra and cause infection. 6. Use a clean towel to pat-dry the catheter and the skin around it. Make sure to wipe off all soap. 7. Wash your hands with soap and water. Shower every day. Do not take baths. Do not use cream, ointment, or lotion on the area where the catheter enters your body, unless your health care provider tells you to do that. Do not use powders, sprays, or lotions on your genital area. Check your skin around the catheter every day for signs of infection. Check for: ? Redness, swelling, or pain. ? Fluid or blood. ? Warmth. ? Pus or a bad smell. How to empty the drainage bag Supplies needed Rubbing alcohol. Gauze pad or cotton ball. Adhesive tape or a leg strap. Emptying the bag Empty your drainage bag (your overnight drainage bag or your leg bag) when it is ? full, or at least 2 3 times a day. Clean the drainage bag according to the public health training assistant's instructions or as told by your health care provider. 1. Wash your hands with soap and water. 2. Detach the drainage bag from your leg. 3. Hold the drainage bag over the toilet or a clean container. Make sure the drainage bag is lower than your hips and bladder. This stops urine from going back into the tubing and into your bladder. 4. Open the pour spout at the bottom of the bag. 5. Empty the urine into the toilet or container. Do not let the pour spout touch any surface. This precaution is important to prevent bacteria from getting in the bag and causing infection. 6. Apply rubbing alcohol to a gauze pad or cotton ball. 7. Use the gauze pad or cotton ball to clean the pour spout. 8. Close the pour spout. 9. Attach the bag to your leg with adhesive tape or a leg strap. 10. Wash your hands with soap and water. How to change the drainage bag Supplies needed: Alcohol wipes. A clean drainage bag. Adhesive tape or a leg strap. Changing the bag Replace your drainage bag with a clean bag if it leaks, starts to smell bad, or looks dirty. 1. Wash your hands with soap and water. 2. Detach the dirty drainage bag from your leg. 3. Pinch the catheter with your fingers so that urine does not spill out. 4. Disconnect the catheter tube from the drainage tube at the connection valve. Do not let the tubes touch any surface. 5. Clean the end of the catheter tube with an alcohol wipe. Use a different alcohol wipe to clean the end of the drainage tube. 6. Connect the catheter tube to the drainage tube of the clean bag. 7. Attach the clean bag to your leg with adhesive tape or a leg strap. Avoid attaching the new bag too tightly. 8. Wash your hands with soap and water. General instructions Never pull on your catheter or try to remove it. Pulling can damage your internal tissues. Always wash your hands before and after you handle your catheter or drainage bag. Use a mild, fragrance-free soap. If soap and water are not available, use hand mannequin refinisher. Always make sure there are no twists or bends (kinks) in the catheter tube. Always make sure there are no leaks in the catheter or drainage bag. Drink enough fluid to keep your urine pale yellow. Do not take baths, swim, or use a hot tub. If you are female, wipe from front to back after having a bowel movement. Contact a health care provider if: Your urine is cloudy. Your urine smells unusually bad. Your catheter gets clogged. Your catheter starts to leak. Your bladder feels full. Get help right away if: You have redness, swelling, or pain where the catheter enters your body. You have fluid, blood, pus, or a bad smell coming from the area where the catheter enters your body. The area where the catheter enters your body feels warm to the touch. You have a fever. You have pain in your abdomen, legs, lower back, or bladder. You see blood in the catheter. Your urine is pink or red. You have nausea, vomiting, or chills. Your urine is not draining into the bag. Your catheter gets pulled out. Summary An indwelling urinary catheter is a thin, flexible, germ-free (sterile) tube that is placed into the bladder to help drain urine out of the body. The catheter is inserted into the part of the body that drains urine from the bladder (urethra). Take good care of your catheter to keep it working properly and help prevent problems from developing. Always wash your hands before and after you handle your catheter or drainage bag. Never pull on your catheter or try to remove it. This information is not intended to replace advice given to you by your health care provider. Make sure you discuss any questions you have with your health care provider. Document Released: 09/09/2006 Document Revised: 01/01/2020 Document Reviewed: 04/25/2018 [employer] Patient Education 2020 [employer]. Additional Information VACCINATE! IT SAVES LIVES! Members of the community who have not yet received the COVID-19 vaccine and would like to receive it can visit one of [facility] vaccine clinics. There are many vaccine clinic locations within the [facility]. For locations and available times, please visit https://gettheshot.coronavirus.o hio.gov/. It is important to note that some COVID mobile vaccine clinics are held outdoors and may be canceled in rainy or stormy conditions. To learn more about pediatric vaccinations (ages 5-11), we invite you to visit the [facility] webpage. [email or web address].[email or web address].org/p ages/3849-Odvva-Lqzqleviknc-Freq cerees-Mwhad-Ylbqnypxs.html To learn more about the COVID-19 vaccine, we invite you to visit the CDC website for a list of frequently asked questions.https://www.cdc.gov/co ronavirus/2019-ncov/vaccines/faq .html [facility] Patient Portal Access Instructions: Stay connected with your healthcare team and access your personal medical information anytime with the [facility] Patient Portal. Please follow the directions below to create your [facility] account: 1.Access the email account you provided upon registration to the hospital/physician office.2.Look for an invitation email from [facility].3.Open the email and access the invitation link: Accept Invitation to [facility].4.Fill in the required castrejon to create your account. To access your account, visit [email or web address] or scan the QR code above. Click the blue button labeled Access Patient Portal and then log in with the username and password that you created in the steps above. You will be able to view your test results, lab results, a summary of your visits, upcoming appointments and more. There is also a convenient messaging option where you can send secure messages to your provider. In addition, you will have the ability to download any documents or summaries to your computer and/or send the information securely to a physician. Remember that your healthcare information is confidential, so carefully consider who you will allow to register on the [facility] Patient Portal for access to your information. You can also access the [facility] Patient Portal on the [facility] tonya. Simply click on Patient Portal and then log into your account. If you would like to receive a full copy of your medical records, please contact the [facility] Medical Records Department by calling [phone], Saturday through Saturday between 8 a.m. and 4:30 p.m. HOW TO SAFELY DISPOSE OF PRESCRIPTION MEDICATIONS Please use one of the following methods to safely dispose of your unused medications. 1.Use a drug disposal kit: the drug disposal pouch allows you to safely discard your old and unused drugs. Ask your nurse to give you one when you are discharged.2.Visit a local take-back location: Many local pharmacies and police departments have programs that collect old and unwanted prescription drugs. Call your local pharmacy or go to http://bit.ly/8B1Hd7d to find one close to you.3.Make use of household items: Use cat litter or old coffee grounds to dispose medications if other options are not available. Mix your drugs with these household products, seal them in an airtight container and throw it into the garbage. Call [facility]: [phone] to be sure your drugs can be disposed of in this way. Some medicines may require a different approach.4.Never flush your medications down the toilet. IF YOU HAVE BEEN PRESCRIBED AN OPIOID FOR PAIN If you have been prescribed an opioid (such as hydrocodone, oxycodone or morphine), it is critical to understand the possible side effects and risks of opioid pain medications. Even when taken as directed, opioids can have several side effects including: Tolerance, meaning you might need to take more of a medication for the same pain relief. Nausea, vomiting and/or constipation. Sleepiness, dizziness, dry mouth, confusion, depression or itching. Physical dependence, meaning you have withdrawal symptoms when a medication is stopped, can develop within a few days. KNOW YOUR RESPONSIBILITIES It is important to know exactly how much and how often to take the opioid pain medications you are prescribed. Never take opioids in higher amounts or more often than prescribed. Do not combine opioids with alcohol or other drugs that cause drowsiness, such as benzodiazepines, also known as benzos, including diazepam and alprazolam, muscle relaxants or sleep aids. Never sell or share prescription opioids. This is illegal. Store opioids in a secure place and out of reach of others (including children, family, friends and visitors). The last page of this document has been signed and retained as a CHART COPY. Signatures Patient Education Materials Indwelling Urinary Catheter Care, Adult Medication Leaflets finasteride, tamsulosin My discharge plan and instructions have been reviewed and explained to me and I,HALIE HERNANDEZ understand my current condition and have read and understand these discharge instructions. I have received a written copy of the plan/instructions. If I have questions, I am aware that I should contact my doctor. 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: Date/Time: Relationship to Patient: Witness Name/Signature: Date/Time: [facility] 06-04-2025 Evaluation + Plan note Extrac josh from: Title:History and Physical Author:SPIKE MILLER Date:06/04/25 Gross hematuria I suspect secondary to BPH, continue three-way Walton irrigation, urology consult, hold Eliquis ?Bilateral pyelonephritis will treat with ceftriaxone A-fib currently in sinus rhythm hold Eliquis Diabetes hold metformin sliding scale insulin as needed Hypertension chronic stable Hyperlipidemia chronic stable Hypothyroid chronic stable DVT prophylaxis SCDs while holding Eliquis Full code Patient was admitted for observation for the above Future Appointments Appointment Date:06/11/2025 08:20:00 AM Scheduled Provider:MYRNA VIDAL Location:UROLOGY Appointment Type: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 Patient had difficulty passing urine and was seen in the emergency department on 06/02/2025 and had a Walton placed had a large volume void of 700 cc and was discharged home and initially doing well until he started developed gross blood with some clots so he returned to the emergency department at [place] In the emergency department Vital signs significant for tachycardia with a rate of [address] abdomen pelvis with contrast ... Mild bilateral perinephric stranding. ...IMPRESSION: Mild bladder wall thickening with several foci of luminal air. Correlate with urinalysis to exclude cystitis. Marked prostatomegaly. CBC unremarkable BMP glucose 240 otherwise unremarkable UA positive blood no nitrites no leuk esterase [1] This is a 80-year-old gentleman unknown to [facility] who presented to [facility] 1 day ago secondary to acute urinary retention. Walton catheter was placed at that time and the patient [id number] cc of urine drained from the bladder. The patient is on Eliquis and subsequently developed gross hematuria which took him back to the emergency department. He reports that while there, the catheter was irrigated, but there was difficulty with irrigation and the catheter was changed. At that time, he reports that attempt was made at hand irrigation which he stated was also problematic. However, he reports that since admission here, the catheter has been flowing well. According to prior notes, Eliquis was held. The patient denies having followed with urology in the past, and it does not appear that he is taking any prostate medications. Review of CT scan does not reveal clot retention butactually reveals that the enlarged prostate is forcing the tip of the catheter to angulate and be in contact with the bladder dome. The patient denies fevers, chills, and abdominal pain. He reports that his low abdomen is just sore. Labs, imaging studies, and prior chart notes were reviewed personally by me. Review of Systems GENERAL: No fevers, no chills, no weight loss. INTEGUMENTARY: No rashes. HEENT: No headaches, no visual disturbances, no hearing loss. CARDIOVASCULAR: No chest pain, no palpitations. RESPIRATORY: No shortness of breath, no cough. GI: No nausea, no diarrhea. : see HPI for pertinent positives and negatives. MUSCULOSKELETAL: No pain, no weakness. NEUROLOGIC: No focal deficits. PSYCHIATRIC: no depression, no anxiety. HEMATOLOGY: No abnormal bruising, no easy bleeding. Physical Exam Vitals and Measurements T: 36.8 C (Oral) HR: 99 BP: 120/76 SpO2: 92% HT: 177.8 cm WT: 113.6 kg BMI: 35.93 Weight Dosing Weight: 113.6 kg (06/04/25) GENERAL: 80 year old male that is resting in bed. Appears to be in no acute distress. SKIN: warm and dry. No rashes noted. HEENT: mucous membranes moist. LUNGS: no use of accessory muscles. ABDOMEN: Soft, non distended, non tender GENITOURINARY: 18 FR 3-way walton present. Draining lightly souleymane urine without clots. Secured with cath secure. MUSCULOSKELETAL: Moves all extremities x 4. VASCULAR: . No edema. NEUROLOGICAL: A&O x3. No focal deficits. Lab Results 06/04 05:35 WBC: 6.8 Hgb: 12.5 L Hct: 36.6 L Platelet: 175 Neutrophil %: 62.4 Glucose Level: 187 H Sodium Level: 140 Potassium Level: 4.4 BUN: 16.0 Creatinine Lvl (s): 0.91 Imaging Results and Diagnostics (06/03/2025 23:[address] Abd/Pelvis w/ IV Contrast Only) Kidneys: Symmetric nephrograms. Mild bilateral perinephric stranding. No mass, nephrolithiasis or hydronephrosis. Ureters are normal in caliber. Pelvis: Walton catheter is present, the tip of which, at the very least, tents the wall of the bladder dome. Suboptimal bladder distension with mild bladder wall thickening and several foci of luminal air. Some adjacent perivesicular stranding is present. Marked prostatomegaly. No pelvic or inguinal lymphadenopathy. GI: Large and small bowel are nondilated. Nonvisualized appendix belia pericecal inflammatory changes are present. Unremarkable stomach. No small bowel obstruction. No free intraperitoneal air. No abdominal lymphadenopathy. 2.1 rim calcified density likely represents a calcified lymph node. Vasculature: Atherosclerosis of the abdominal aorta and its branch vessels without aneurysm.. Soft Tissues: No acute findings. Bones: No acute findings. Multilevel degenerative changes of the spine. IMPRESSION: Mild bladder wall thickening with several foci of luminal air. Correlate with urinalysis to exclude cystitis. Marked prostatomegaly. [2] Assessment/Plan Gross hematuria BPH Urinary retention Currently, the Walton catheter should remain in place now that it is draining well and is clearing on its own. I suspect that the angulation of the Walton catheter as a result of the enlarged prostate is responsible for the perceived difficulty irrigating the catheter as it is lying against the bladder wall which can create a false sense of obstruction. CT scan does not reveal any clot retention. Eliquis should be held for at least 3 days to allow bleeding to subside. Bleeding likely resulted from rapid decompression of the overly distended bladder. Additionally, the patient should be started on Flomax and finasteride to aid with voiding. We will also implement hand irrigation here to ensure the catheter remains patent. The patient can follow-up with urology as an outpatient provided he continues to have resolution of the hematuria. The patient currently already has urology follow-up set. Problem List/Past Medical History Ongoing No chronic problems Procedure/Surgical History No qualifying data available. Medications Inpatient amLODIPine, 2.5 mg= 1 tab(s), Oral, qDay atorvastatin, 10 mg= 1 tab(s), Oral, qHS cefTRIAXone, 2 gram(s)= 20 mL, IV Push (INT), qDay Dextrose 50% IV Push, 25 gram(s)= 50 mL, IV Push, AsDirected, PRN Dilaudid, 1 mg= 1 mL, IV Push, q3h, PRN HumaLOG 100 units/mL subcutaneous solution, Give 0-5 units/dose, Subcutaneous, TIDAC levothyroxine, 150 mcg= 1 tab(s), Oral, qDayAC lisinopril, 30 mg= 3 tab(s), Oral, Daily melatonin, 3 mg= 1 tab(s), Oral, qHS, PRN melatonin, 3 mg= 1 tab(s), Oral, qHS, PRN metoprolol tartrate 25 mg oral tablet, 12.5 mg= 1 EA, Oral, qDay Miralax Powder Packet, 17 gram(s)= 15 mL, Oral, qDay, PRN NS 1,000 mL, 1000 mL, Intravenous Percocet 325/5, 2 tab(s), Oral, q4h, PRN Tylenol, 650 mg= 2 tab(s), Oral, q4h, PRN Zofran, 4 mg= 2 mL, IV Push, q4h, PRN Home amLODIPine 2.5 mg oral tablet, 2.5 mg= 1 tab(s), Oral, qDay Eliquis 5 mg oral tablet, 5 mg= 1 tab(s), Oral, BID levothyroxine 150 mcg (0.15 mg) oral tablet, 150 mcg= 1 tab(s), Oral, qDayAC lisinopril 30 mg oral tablet, 30 mg= 1 tab(s), Oral, Daily MetFORMIN (Eqv-Fortamet) 500 mg oral tablet, EXTENDED RELEASE, 500 mg= 1 tab(s), Oral, 4x/Day metoprolol tartrate 25 mg oral tablet, 12.5 mg= 0.5 tab(s), Oral, qDay pravastatin 20 mg oral tablet, 20 mg, Oral, Every other day Allergies NKA Social History Tobacco Nicotine Use: Refused nicotine status screen., 06/03/2025 Immunizations No qualifying data available. [1] History and Physical; SPIKE MILLER MD 06/04/2025 04:06 EDT [2] CT Abd/Pelvis w/ IV Contrast Only; CRISTIAN OLIVAREZ MD 06/03/2025 23:37 EDT Digitally Signed by JIN CALLAHAN DO on 06/04/2025 08:55 AM Digitally Signed by JIN CALLAHAN DO on 06/04/2025 08:59 AM [id number] Consult note Date of Service 06/04/25 Reason for Consultation Gross hematuria History of Present Illness 80-year-old male with a history of hypertension, hyperlipidemia, hypothyroid, atrial fibrillation on Eliquis, and diabetes who related to the [employer] of [facility] presents with urinary retention. Patient had difficulty passing urine and was seen in the emergency department on 06/02/2025 and had a Walton placed had a large volume void of 700 cc and was discharged home and initially doing well until he started developed gross blood with some clots so he returned to the emergency department at [place] In the emergency department Vital signs significant for tachycardia with a rate of [address] abdomen pelvis with contrast ... Mild bilateral perinephric stranding. ...IMPRESSION: Mild bladder wall thickening with several foci of luminal air. Correlate with urinalysis to exclude cystitis. Marked prostatomegaly. CBC unremarkable BMP glucose 240 otherwise unremarkable UA positive blood no nitrites no leuk esterase [1] This is a 80-year-old gentleman unknown to [facility] who presented to [facility] 1 day ago secondary to acute urinary retention. Walton catheter was placed at that time and the patient [id number] cc of urine drained from the bladder. The patient is on Eliquis and subsequently developed gross hematuria which took him back to the emergency department. He reports that while there, the catheter was irrigated, but there was difficulty with irrigation and the catheter was changed. At that time, he reports that attempt was made at hand irrigation which he stated was also problematic. However, he reports that since admission here, the catheter has been flowing well. According to prior notes, Eliquis was held. The patient denies having followed with urology in the past, and it does not appear that he is taking any prostate medications. Review of CT scan does not reveal clot retention butactually reveals that the enlarged prostate is forcing the tip of the catheter to angulate and be in contact with the bladder dome. The patient denies fevers, chills, and abdominal pain. He reports that his low abdomen is just sore. Labs, imaging studies, and prior chart notes were reviewed personally by me. Review of Systems GENERAL: No fevers, no chills, no weight loss. INTEGUMENTARY: No rashes. HEENT: No headaches, no visual disturbances, no hearing loss. CARDIOVASCULAR: No chest pain, no palpitations. RESPIRATORY: No shortness of breath, no cough. GI: No nausea, no diarrhea. : see HPI for pertinent positives and negatives. MUSCULOSKELETAL: No pain, no weakness. NEUROLOGIC: No focal deficits. PSYCHIATRIC: no depression, no anxiety. HEMATOLOGY: No abnormal bruising, no easy bleeding. Physical Exam Vitals and Measurements T: 36.8 C (Oral) HR: 99 BP: 120/76 SpO2: 92% HT: 177.8 cm WT: 113.6 kg BMI: 35.93 Weight Dosing Weight: 113.6 kg (06/04/25) GENERAL: 80 year old male that is resting in bed. Appears to be in no acute distress. SKIN: warm and dry. No rashes noted. HEENT: mucous membranes moist. LUNGS: no use of accessory muscles. ABDOMEN: Soft, non distended, non tender GENITOURINARY: 18 FR 3-way walton present. Draining lightly souleymane urine without clots. Secured with cath secure. MUSCULOSKELETAL: Moves all extremities x 4. VASCULAR: . No edema. NEUROLOGICAL: A&O x3. No focal deficits. Lab Results 06/04 05:35 WBC: 6.8 Hgb: 12.5 L Hct: 36.6 L Platelet: 175 Neutrophil %: 62.4 Glucose Level: 187 H Sodium Level: 140 Potassium Level: 4.4 BUN: 16.0 Creatinine Lvl (s): 0.91 Imaging Results and Diagnostics (06/03/2025 23:[address] Abd/Pelvis w/ IV Contrast Only) Kidneys: Symmetric nephrograms. Mild bilateral perinephric stranding. No mass, nephrolithiasis or hydronephrosis. Ureters are normal in caliber. Pelvis: Walton catheter is present, the tip of which, at the very least, tents the wall of the bladder dome. Suboptimal bladder distension with mild bladder wall thickening and several foci of luminal air. Some adjacent perivesicular stranding is present. Marked prostatomegaly. No pelvic or inguinal lymphadenopathy. GI: Large and small bowel are nondilated. Nonvisualized appendix belia pericecal inflammatory changes are present. Unremarkable stomach. No small bowel obstruction. No free intraperitoneal air. No abdominal lymphadenopathy. 2.1 rim calcified density likely represents a calcified lymph node. Vasculature: Atherosclerosis of the abdominal aorta and its branch vessels without aneurysm.. Soft Tissues: No acute findings. Bones: No acute findings. Multilevel degenerative changes of the spine. IMPRESSION: Mild bladder wall thickening with several foci of luminal air. Correlate with urinalysis to exclude cystitis. Marked prostatomegaly. [2] Assessment/Plan Gross hematuria BPH Urinary retention Currently, the Walton catheter should remain in place now that it is draining well and is clearing on its own. I suspect that the angulation of the Walton catheter as a result of the enlarged prostate is responsible for the perceived difficulty irrigating the catheter as it is lying against the bladder wall which can create a false sense of obstruction. CT scan does not reveal any clot retention. Eliquis should be held for at least 3 days to allow bleeding to subside. Bleeding likely resulted from rapid decompression of the overly distended bladder. Additionally, the patient should be started on Flomax and finasteride to aid with voiding. We will also implement hand irrigation here to ensure the catheter remains patent. The patient can follow-up with urology as an outpatient provided he continues to have resolution of the hematuria. The patient currently already has urology follow-up set. Problem List/Past Medical History Ongoing No chronic problems Procedure/Surgical History No qualifying data available. Medications Inpatient amLODIPine, 2.5 mg= 1 tab(s), Oral, qDay atorvastatin, 10 mg= 1 tab(s), Oral, qHS cefTRIAXone, 2 gram(s)= 20 mL, IV Push (INT), qDay Dextrose 50% IV Push, 25 gram(s)= 50 mL, IV Push, AsDirected, PRN Dilaudid, 1 mg= 1 mL, IV Push, q3h, PRN HumaLOG 100 units/mL subcutaneous solution, Give 0-5 units/dose, Subcutaneous, TIDAC levothyroxine, 150 mcg= 1 tab(s), Oral, qDayAC lisinopril, 30 mg= 3 tab(s), Oral, Daily melatonin, 3 mg= 1 tab(s), Oral, qHS, PRN melatonin, 3 mg= 1 tab(s), Oral, qHS, PRN metoprolol tartrate 25 mg oral tablet, 12.5 mg= 1 EA, Oral, qDay Miralax Powder Packet, 17 gram(s)= 15 mL, Oral, qDay, PRN NS 1,000 mL, 1000 mL, Intravenous Percocet 325/5, 2 tab(s), Oral, q4h, PRN Tylenol, 650 mg= 2 tab(s), Oral, q4h, PRN Zofran, 4 mg= 2 mL, IV Push, q4h, PRN Home amLODIPine 2.5 mg oral tablet, 2.5 mg= 1 tab(s), Oral, qDay Eliquis 5 mg oral tablet, 5 mg= 1 tab(s), Oral, BID levothyroxine 150 mcg (0.15 mg) oral tablet, 150 mcg= 1 tab(s), Oral, qDayAC lisinopril 30 mg oral tablet, 30 mg= 1 tab(s), Oral, Daily MetFORMIN (Eqv-Fortamet) 500 mg oral tablet, EXTENDED RELEASE, 500 mg= 1 tab(s), Oral, 4x/Day metoprolol tartrate 25 mg oral tablet, 12.5 mg= 0.5 tab(s), Oral, qDay pravastatin 20 mg oral tablet, 20 mg, Oral, Every other day Allergies NKA Social History Tobacco Nicotine Use: Refused nicotine status screen., 06/03/2025 Immunizations No qualifying data available. [1] History and Physical; SPIKE MILLER MD 06/04/2025 04:06 EDT [2] CT Abd/Pelvis w/ IV Contrast Only; CRISTIAN OLIVAREZ MD 06/03/2025 23:37 EDT Digitally Signed by JIN CALLAHAN DO on 06/04/2025 08:55 AM Digitally Signed by JIN CALLAHAN DO on 06/04/2025 08:59 AM [id number] History and physical note Date of Service 06/04/2025 Chief Complaint Gross hematuria History of Present Illness 80-year-old male with a history of hypertension, hyperlipidemia, hypothyroid, atrial fibrillation on Eliquis, and diabetes who related to the [employer] of [facility] presents with urinary retention. Patient had difficulty passing urine and was seen in the emergency department on 06/02/2025 and had a Walton placed had a large volume void of 700 cc and was discharged home and initially doing well until he started developed gross blood with some clots so he returned to the emergency department at [facility] In the emergency department Vital signs significant for tachycardia with a rate of [address] abdomen pelvis with contrast ... Mild bilateral perinephric stranding. ...IMPRESSION: Mild bladder wall thickening with several foci of luminal air. Correlate with urinalysis to exclude cystitis. Marked prostatomegaly. CBC unremarkable BMP glucose 240 otherwise unremarkable UA positive blood no nitrites no leuk esterase I personally spoke to the ED physician Dr. Greene regarding the patient's presentation patient was seen and examined at the bedside upon arrival to the floor Review of Systems Review of systems incomplete due to acute care caveat Physical Exam Vitals and Measurements T: 36.8 C (Oral) HR: 99 BP: 120/76 SpO2: 92% HT: 177.8 cm WT: 113.6 kg BMI: 35.93 Weight Dosing Weight: 113.6 kg (06/04/25) GENERAL:Well nourished ; no acute distress. ASSISTIVE DEVICES: None PSYCHIATRIC: appropriate HEENT moist mucous membranes extraocular muscles intact CARDIOVASCULAR: Regular rate, regular rhythm, no murmurs noted. Notrace lower extremity pitting edema. No lymphedema. Dorsalis Pedis pulses+2/4 blaterally . Posterior Tibialis pulses+2/4 bilaterally . RESPIRATORY: Regular rate and depth; no distress, RIGHT lungclear ; LEFT lungclear . Breath soundsnormal . ABDOMEN soft, no guarding, nontender, nondistended, positive bowel sounds, NEURO: Alert DERM: no acute rash Gross blood in the Walton Lab Results No 36 Hour Lab Data Assessment/Plan Gross hematuria I suspect secondary to BPH, continue three-way Walton irrigation, urology consult, hold Eliquis ?Bilateral pyelonephritis will treat with ceftriaxone A-fib currently in sinus rhythm hold Eliquis Diabetes hold metformin sliding scale insulin as needed Hypertension chronic stable Hyperlipidemia chronic stable Hypothyroid chronic stable DVT prophylaxis SCDs while holding Eliquis Full code Patient was admitted for observation for the above Problem List/Past Medical History Ongoing No chronic problems A-fib, hypothyroid, diabetes, hypertension, hyperlipidemia and hypothyroid Procedure/Surgical History No qualifying data available. Medications Home Medications (7) Active amLODIPine 2.5 mg oral tablet 2.5 mg = 1 tab(s), Oral, qDay Eliquis 5 mg oral tablet 5 mg = 1 tab(s), Oral, BID levothyroxine 150 mcg (0.15 mg) oral tablet 150 mcg = 1 tab(s), Oral, qDayAC lisinopril 30 mg oral tablet 30 mg = 1 tab(s), Oral, Daily MetFORMIN (Eqv-Fortamet) 500 mg oral tablet, EXTENDED RELEASE 500 mg = 1 tab(s), Oral, 4x/Day metoprolol tartrate 25 mg oral tablet 12.5 mg = 0.5 tab(s), Oral, qDay pravastatin 20 mg oral tablet 20 mg, Oral, Every other day Allergies NKA Social History Tobacco Nicotine Use: Refused nicotine status screen., 06/03/2025 Family History Family history of prostate cancer and diabetes Immunizations No qualifying data available. Code Status Code Status - Ordered -- 06/04/25 1:50:00 EDT, Full Code, Constant Order Digitally Signed by SPIKE MILLER MD on 06/04/2025 04:13 AM Digitally Signed by SPIKE MILLER MD on 06/04/2025 04:15 AM [id number] Note* Exam Date Time Procedure Performing Provider Status 06/03/25 11:[address] Abd/Pelvis w/ IV Contrast Only CRISTIAN OLIVAREZ MD; Auth (Verified) [id number] ORIGINAL EXAMINATION: CT OF THE ABDOMEN AND PELVIS WITH CONTRAST 06/03/2025 11:37 pm TECHNIQUE: CT of the abdomen and pelvis was performed with the administration of intravenous contrast. Multiplanar reformatted images are provided for review. Automated exposure control, iterative reconstruction, and/or weight based adjustment of the mA/kV was utilized to reduce the radiation dose to as low as reasonably achievable. COMPARISON: None. HISTORY: ORDERING SYSTEM PROVIDED HISTORY: Reason for Exam: Hematuria, gross/macroscopic FINDINGS: Lower Chest: No acute findings. Organs: Liver, gallbladder pancreas, spleen and adrenal glands are unremarkable. Kidneys: Symmetric nephrograms. Mild bilateral perinephric stranding. No mass, nephrolithiasis or hydronephrosis. Ureters are normal in caliber. Pelvis: Walton catheter is present, the tip of which, at the very least, tents the wall of the bladder dome. Suboptimal bladder distension with mild bladder wall thickening and several foci of luminal air. Some adjacent perivesicular stranding is present. Marked prostatomegaly. No pelvic or inguinal lymphadenopathy. GI: Large and small bowel are nondilated. Nonvisualized appendix belia pericecal inflammatory changes are present. Unremarkable stomach. No small bowel obstruction. No free intraperitoneal air. No abdominal lymphadenopathy. 2.1 rim calcified density likely represents a calcified lymph node. Vasculature: Atherosclerosis of the abdominal aorta and its branch vessels without aneurysm.. Soft Tissues: No acute findings. Bones: No acute findings. Multilevel degenerative changes of the spine. IMPRESSION: Mild bladder wall thickening with several foci of luminal air. Correlate with urinalysis to exclude cystitis. Marked prostatomegaly. I have personally reviewed the images of this examination and agree with the resident's findings and interpretation. Interpreted by: Cristian Olivarez Preliminary Report By: Daniel Cambpell Electronically signed By Cristian Olivarez Dictated Date: 06/03/2025 11:46:47 PM Prelim Date: 06/03/2025 11:55:00 PM Sign Date: 06/03/2025 11:58:59 PM Ordering Provider: [facility]09-11-2025 Hospital Discharge instructions Patient Education 06/03/2025 20:47:07 Walton Catheter, Care Walton Catheter Care A Walton catheter is a rubber tube that is placed through the urethra (opening where urine comes out) and into the bladder. This helps drain urine from the bladder. There is a small balloon on the endof the tube that is inflated after insertion. This keeps the catheter from sliding out of the bladder. A Walton catheter is used to treat urinary retention (unable to pass urine). It is also used when there is incontinence (loss of bladder control). Home care Finish taking any prescribed antibiotic even if you are feeling better before then. It is important to keep bacteria from getting into the collection bag. Do not disconnect the catheter from the collection bag. Use a leg band to secure the drainage tube, so it does not pull on the catheter. Drain the collection bag when it becomes full using the drain spout at the bottom of the bag. Do not try to pull or remove your catheter. This will injure your urethra. It must be removed by your healthcare provider or nurse. Follow-up care Follow up with your healthcare provider as advised for repeat urine testing and catheter removal orreplacement. When to seek medical advice Call your healthcare provider right away if any of these occur: Fever of 100.4 F (38 C) or higher, or as directed by your healthcare provider Bladder pain or fullness Abdominal swelling, nausea or vomiting, or back pain Blood or urine leakage around the catheter Bloody urine coming from the catheter (if a new symptom) Catheter falls out Catheter stops draining for 6 hours Weakness, dizziness, or fainting [id number] [employer]. [address] [place] [address]. All rights reserved. This information is not intended as a substitute for professional medical care. Always follow yourhealthcare professional's instructions. Follow Up Care 06/03/2025 19:14:15 With:Go to emergency room if symptoms worsen Address:Unknown When:2-4 days With:ALEX DIAZ MD[facility] Address: [address] [place] [address] [address] [facility] [place] [address] [phone] When:5 to 7 days [facility] 09-10-2025 Hospital Discharge instructions Patient Education 06/02/2025 09:17:28 Urinary Retention, Male Urinary Retention (Male) Urinary retention is the medical term for difficulty or inability to pass urine, even though your bladder is full. Causes The most common cause of urinary retention in men is the bladder outlet being blocked. This can be due to an enlarged prostate gland or a bladder infection. Certain medicines can also cause this problem. This condition is more likely to occur as men get older. Symptoms Common symptoms of urinary retention include: Pain (not experienced by everyone) Frequent urination Feeling that the bladder is still full after urinating Incontinence (not being able to control the release of urine) Swollen abdomen Treatment This condition is treated by inserting a tube (catheter) into the bladder to drain the urine. This provides immediate relief. The catheter may need to stay in place for a few days. The catheter has aballoon on the tip, which is inflated after insertion. This prevents the catheter from falling out. Home care If you were given antibiotics, take them until they are used up, or your healthcare provider tells you to stop. It is important to finish the antibiotics even though you feel better. This is to make sure your infection has cleared. If a catheter was left in place, it is important to keep bacteria from getting into the collection bag. Don't disconnect the catheter from the collection bag. Use a leg band to secure the drainage tube, so it does not pull on the catheter. Drain the collection bag when it becomes full using the drain spout at the bottom of the bag. Don't pull on or try to remove your catheter. This will injure your urethra. The catheter must be removed by a healthcare provider. Follow-up care Follow up with your healthcare provider, or as advised. If a catheter was left in place, it can usually be removed within 3 to 7 days. Some conditions require the catheter to stay in longer. Your healthcare provider will tell you when to return to have the catheter removed. When to seek medical advice Call your healthcare provider right away if any of these occur: Fever of 100.4 F (38 C) or higher, or as directed by your healthcare provider Bladder or lower-abdominal pain or fullness Abdominal swelling, nausea, vomiting, or back pain Blood or urine leakage around the catheter Bloody urine coming from the catheter (if a new symptom) Weakness, dizziness, or fainting Confusion or change in usual level of alertness If a catheter was left in place, return if: oCatheter falls out oCatheter stops draining for 6 hours [id number] [employer]. [address] [place] [address]. All rights reserved. This information is not intended as a substitute for professional medical care. Always follow yourhealthcare professional's instructions. Follow Up Care 06/02/2025 06:33:40 With:ALEX DIAZ MD, [facility] Address: [address] [place] [address] [address] [facility] [place] [phone] When:2-4 days With:Go to emergency room if symptoms worsen Address:Unknown When:2-4 days With:MODESTA ROMANO MD Address: [address] [phone] When:2-4 days [facility] 09-10-2025 Emergency department Discharge summary Discharge Instructions Thank you for allowing [facility] to assist you with your healthcare needs. The following is importantdischarge information regarding your hospital visit. Diagnosis from Today's Visit Urinary retention What to Do Next Instructions from Your Care Team You have been evaluated in the Emergency Department today for your urinary symptoms. Your evaluation, including urinalysis, suggests that your symptoms are due to urinary retention. You should follow-up with both your primary care as well as urology. This number is in your discharge paperwork. You do not have a urinary tract infection at this time. You are being discharged with a Walton catheter. Please follow up with your primary care physician within two days. Follow-up with Dr. Diaz, urologist. Return to the Emergency Department if you experience fevers 100.4 or greater, worsening or uncontrolled pain, vomiting, flank pain, or for any other concerning symptoms. Thank you for choosing us for your care. You have been discharged with an indwelling urinary catheter. It's also called a Walton catheter. A catheter is a thin, flexible tube. An indwelling urinary catheter has two parts. The first part is atube that drains urine from your bladder. The second part is a bag or other device that collects the urine. The most important thing to remember is that you want to prevent infection. Always wash your hands before handling your catheter bag or tubing. No qualifying data available. Post Acute Orders No qualifying data available. You Need to Schedule the Following Appointments Follow Up with ALEX DIAZ MD, [facility] When:Within 2-4 days Where:[address] [facility] [address] [facility] [phone] Follow Up with Go to emergency room if symptoms worsen When:Within 2-4 days Follow Up with MODESTA ROMANO MD When:Within 2-4 days Where:[facility] [address] [place] [address] [phone] Allergies NKA Medications Please ask your primary doctor or pharmacist before taking any other medication not listed, including over the counter drugs, herbal medications, vitamins and or supplements as they may interact withyour home medications. Please take this list to your next doctor s visit. Bring all medications you take, including over the counter medications, herbals and other supplements with you to your doctor s visit. Patients and families are reminded to discard old lists and to update any records with all medication providers or retail pharmacies. Education Materials Urinary Retention (Male) Urinary retention is the medical term for difficulty or inability to pass urine, even though your bladder is full. Causes The most common cause of urinary retention in men is the bladder outlet being blocked. This can be due to an enlarged prostate gland or a bladder infection. Certain medicines can also cause this problem. This condition is more likely to occur as men get older. Symptoms Common symptoms of urinary retention include: Pain (not experienced by everyone) Frequent urination Feeling that the bladder is still full after urinating Incontinence (not being able to control the release of urine) Swollen abdomen Treatment This condition is treated by inserting a tube (catheter) into the bladder to drain the urine. This provides immediate relief. The catheter may need to stay in place for a few days. The catheter has aballoon on the tip, which is inflated after insertion. This prevents the catheter from falling out. Home care If you were given antibiotics, take them until they are used up, or your healthcare provider tells you to stop. It is important to finish the antibiotics even though you feel better. This is to make sure your infection has cleared. If a catheter was left in place, it is important to keep bacteria from getting into the collection bag. Don't disconnect the catheter from the collection bag. Use a leg band to secure the drainage tube, so it does not pull on the catheter. Drain the collection bag when it becomes full using the drain spout at the bottom of the bag. Don't pull on or try to remove your catheter. This will injure your urethra. The catheter must be removed by a healthcare provider. Follow-up care Follow up with your healthcare provider, or as advised. If a catheter was left in place, it can usually be removed within 3 to 7 days. Some conditions require the catheter to stay in longer. Your healthcare provider will tell you when to return to have the catheter removed. When to seek medical advice Call your healthcare provider right away if any of these occur: Fever of 100.4 F (38 C) or higher, or as directed by your healthcare provider Bladder or lower-abdominal pain or fullness Abdominal swelling, nausea, vomiting, or back pain Blood or urine leakage around the catheter Bloody urine coming from the catheter (if a new symptom) Weakness, dizziness, or fainting Confusion or change in usual level of alertness If a catheter was left in place, return if: oCatheter falls out oCatheter stops draining for 6 hours [phone] [employer]. [address] [place] [address], [place] [address]. All rights reserved. This information is not intended as a substitute for professional medical care. Always follow yourhealthcare professional's instructions. Additional Information VACCINATE! IT SAVES LIVES! Members of the community who have not yet received the COVID-19 vaccine and would like to receive it can visit one of [facility] vaccine clinics. There are many vaccine clinic locations within the [facility]. For locations and available times, please visit www.gettheshot.coronavirus.[place].gov/. It is important to note that some COVID mobile vaccine clinics are held outdoors and may be canceled in rainy or stormy conditions. To learn more about pediatric vaccinations (ages 5-11), we invite you to visit the [facility] webpage. [email or web address]/[email or web address] learn more about the COVID-19 vaccine, we invite you to visit the CDC website for a list of frequently asked questions. https://www.cdc.gov/coronavirus/2019-ncov/vaccines/faq.html [facility] Patient Portal Access Instructions: Stay connected with your healthcare team and access your personal medical information anytime with the [facility] Patient Portal. If you would like a full copy of your medical records please contact the [facility] Medical Records Department Saturday through Saturday between 8a.m. and 4:30p.m. Please follow the directions below to access the portal: 1.Access the email account you provided upon registration to the hospital.2.Look for an invitation email from [facility].3.Open the email and access the invitation link: Accept Invitation to [facility]4.Fill in the required castrejon to create your account. Sign into [email or web address] with your username and password that you created in the above steps to stay up to date. You can then view a summary of results, a summary of your visits, and the ability to download your summaries to your computer or send the information securely to a physician. Remember that your healthcare information is confidential, so carefully consider who you will allow to register on the [facility] Patient Portal for access to your information. You can also access the [facility] Patient Portal on the [employer]. Simply click on Health Records under [employer] and then click on the [employer] logo. HOW TO SAFELY DISPOSE OF PRESCRIPTION MEDICATIONS Please use one of the following methods to safely dispose of your unused medications. 1.Use a drug disposal kit: the drug disposal pouch allows you to safely discard your old and unuseddrugs. Ask your nurse to give you one when you are discharged.2.Visit a local take-back location: Many local pharmacies and police departments have programs that collect old and unwanted prescriptiondrugs. Call your local pharmacy or go to http://Revuze.LoraxAg/2B4Yk2c to find one close to you.3.Make use of household items: Use cat litter or old coffee grounds to dispose medications if other options arenot available. Mix your drugs with these household products, seal them in an airtight container andthrow it into the garbage. Call [facility]: [phone] to be sure your drugs can be disposed of in this way. Some medicines may require a different approach.4.Never flush your medications down the toilet. IF YOU HAVE BEEN PRESCRIBED AN OPIOIDS FOR PAIN If you have been prescribed an opioid (such as hydrocodone, oxycodone or morphine), it is critical to understand the possible side effects and risks of opioid pain medications. Even when taken as directed, opioids can have several side effects including: Tolerance, meaning you might need to take more of a medication for the same pain relief. Nausea, vomiting and/or constipation. Sleepiness, dizziness, dry mouth, confusion, depression or itching. Physical dependence, meaning you have withdrawal symptoms when a medication is stopped ? this can develop within a few days. KNOW YOUR RESPONSIBILITIES It is important to know exactly how much and how often to take the opioid pain medications you are prescribed. Never take opioids in higher amounts or more often than prescribed. Do not combine opioids with alcohol or other drugs that cause drowsiness, such as benzodiazepines, also known as benzos,including diazepam and alprazolam, muscle relaxants or sleep aids. Never sell or share prescriptionopioids. This is illegal. Store opioids in a secure place and out of reach of others (including children, family, friends and visitors). The last page(s) of this document has been signed and retained as a CHART COPY Signatures Patient Education Materials Urinary Retention, Male Medication Leaflets My discharge plan and instructions have been reviewed and explained to me and I,HALIE HERNANDEZ understand my current condition and have read and understand these discharge instructions. I have received a written copy of the plan/instructions. If I have questions, I am aware that I should contact my doctor. 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: Date/Time: Relationship to Patient: Witness Name/Signature: [facility] No data available for this section [facility] Evaluation + Plan note Future Appointments Appointment Date:06/11/2025 08:20:00 AM Scheduled Provider:MYRNA VIDAL Location:UROLOGY Appointment Type:URO COOKY PACKER [facility] Evaluation + Plan note Future Appointments Appointment Date:08/03/2025 08:00:00 AM Scheduled Provider:LANE SANCHEZ MD Location:UROLOGY Appointment Type:URO Off Proc Cysto w/ Transrectal Ultras Future Scheduled Tests Laboratory* Prostate Specific Antigen 08/11/25 [facility] Evaluation noteNo assessment information available [facility] Work Phone: Evaluovdws note* Diagnosis Other forms of dyspnea Unspecified atrial fibrillation (HCC) [facility] Diagnosis Other forms of dyspnea- Primary Unspecified atrial fibrillation (HCC) Other forms of dyspnea Unspecified atrial fibrillation (HCC) documented in this encounter [facility] Discharge instructions No data available for this section [facility] Progress note No data available for this section [facility] Chief Complaint and Reason for Visit Chief Complaint Cardiac murmur, unsp ecified Summary Purpose Family History No Family History Records FoundNo Family History Records FoundNo Family History Records Found No data available for this section No data available for this section No data available for this section No Family History Records Found No data available for this section No Family History Records FoundNo Family History Records Found Advance Directives No Advanced Directives Records FoundNo Advanced Directives Records FoundNo Advanced Directives Records FoundNo Advanced Directives Records FoundNo Advanced Directives Records FoundNo Advanced Directives Records Found Reason for Referral Specialty Diagnoses / Procedures Referred By Contac t Referred To Contact Cardiology Diagnoses Other forms of dyspnea Unspecified atrial fibrillation (HCC) Procedures Stress echocardiogram (TTE) exercise with contrast, bubble, strain, and 3D PRN CT ECHO TTHRC R-T 2D W/WO M-MODE COMPLETE REST&ST CT ECHO TTHRC R-T 2D W/WO M-MODE REST&STRS CONT ECG CT DOPPLER ECHOCARD PULSE WAVE W/SPECTRAL DISPLAY CT DOP ECHOCARD COLOR FLOW VELOCITY MAPPING CT CV STRS TST XERS&/OR RX CONT ECG W/O I&R CT CV STRS TST XERS&/OR RX CONT ECG TRCG ONLY CT CV STRS TST XERS&/OR RX CONT ECG I&R ONLY Modesta Romano MD [address] [place] [address] [address] [facility] [address] [place] [address] Referral ID Status Reason Start Date Expiration Date Visits Re quested Visits Authorized [id number] Closed 01/15/2024 01/14/2025 1 1 Additional Source Comments Goals (unrecognized section and content) Goals may be documented in a n alternate sectionGoals may be documented in an alternate section No data available for this section No data available for this section No data available for this section No data available for this section No data available for this section Care Teams (unrecognized sec tion and content) Team Status: Active Member Role Status Dates MODESTA ROMANO Family Provider Active MODESTA ROMANO Primary Care Provider Active Team Status: Inactive Member Role Status Dates KAMRYN BYERS Primary Care Provider Active BERTHA DU Attending Provider Active 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 Specialty Start Date End Date Modesta Romano MD [address] [place] [id number] PCP - General Family Medicine 01/29/24 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 DATE CREATED AUTHOR AUTHOR'S ORGANIZ ATION 12/23/2022 [facility] DATE CREATED AUTHOR AUTHOR'S ORGANIZ ATION 01/30/2024 [facility] DATE CREATED AUTHOR AUTHOR'S ORGANIZ ATION 06/11/2025 [facility] DATE CREATED AUTHOR AUTHOR'S ORGANIZ ATION 07/31/2025 [facility] DATE CREATED AUTHOR AUTHOR'S ORGANIZ ATION 08/05/2025 [facility] Reason for Visit (unrecogniz ed section and content) Specialty Diagnoses / Procedures Referred By Contac t Referred To Contact Cardiology Diagnoses Other forms of dyspnea Unspecified atrial fibrillation (HCC) Procedures Stress echocardiogram (TTE) exercise with contrast, bubble, strain, and 3D PRN CT ECHO TTHRC R-T 2D W/WO M-MODE COMPLETE REST&ST CT ECHO TTHRC R-T 2D W/WO M-MODE REST&STRS CONT ECG CT DOPPLER ECHOCARD PULSE WAVE W/SPECTRAL DISPLAY CT DOP ECHOCARD COLOR FLOW VELOCITY MAPPING CT CV STRS TST XERS&/OR RX CONT ECG W/O I&R CT CV STRS TST XERS&/OR RX CONT ECG TRCG ONLY CT CV STRS TST XERS&/OR RX CONT ECG I&R ONLY Modesta Romano MD [address] [place] [address] [address] [facility] [address] [place] [address] Referral ID Status Reason Start Date Expiration Date Visits Re quested Visits Authorized [id number] Closed 01/15/2024 01/14/2025 1 1 FOR RECORDS PERTAINING TO PATIENTS WHO ARE OR HAVE BEEN ENROLLED IN A CHEMICAL DEPENDENCY/SUBSTANCEABUSE PROGRAM, SOME INFORMATION MAY BE OMITTED. This clinical summary was aggregated from multiple sources. Caution should be exercised in using it in the provision of clinical care. This summary normalizes information from multiple sources, and as a consequence, information in this document may materially change the coding, format and clinical context of patient data. In addition, data may be omitted in some cases. CLINICAL DECISIONS SHOULD BE BASED ON THE PRIMARY CLINICAL RECORDS. [employer] provides no warranty or guarantee of the accuracy or completeness of information in this document.
== END | disposition home or self-care (01) ==
LOC: RAD 09:25
PROVIDERS: PCP Family Medicine; Referring Provider Family Medicine; Visit Provider Family Medicine
DX: R05.3 Chronic cough (principal)
CPT/HCPCS: 71046